=== PATIENT | female | born 1970 | race Caucasian/White ===

== ENCOUNTER 2022-05-25 23:22 | Emergency (ER) | payer OTHER, SELFPAY ==
--- NOTE | ~2022-05-25 | XR_ITS ---
EXAMINATION: XR CHEST CLINICAL INFORMATION: Rule out pneumonia COMPARISON: None TECHNIQUE: Frontal view of the chest was obtained.
[2022-05-25 23:32] VITALS: BP 120/73; BP 126/76; PULSE 81; PULSE 85; RESP 20; TEMP 37.3; O2SAT 94; O2SAT 97; BMI 51.7
--- NOTE | 2022-05-25 23:40 | ED.SOB ---
HPI - SOB/Dyspnea General Chief Complaint: Upper Respiratory Symptoms Stated Complaint: sob Time Seen by Provider: 05/25/22 23:33 Source: patient and EMS Mode of arrival: EMS Limitations: no limitations History of Present Illness HPI Narrative: Patient comes to the emergency room complaining of asthma exacerbation. Patient states that she has been using her inhaler more than usual. Patient denies fever or chills. Patient complaining of coughing. Related Data Previous Rx's Medication Instructions Recorded benzonatate 100 mg capsule 100 mg PO TID PRN cough #14 caps 05/26/22 prednisone 50 mg tablet 50 mg PO DAILY #5 tabs 05/26/22 Allergies Allergy/AdvReac Type Severity Reaction Status Date / Time shellfish derived Allergy Severe ANAPHYLAXIS Unverified 02/16/20 16:37 tree nut [Tree Nut] Allergy Severe ANAPHYLAXIS Unverified 02/16/20 16:37 Sulfa (Sulfonamide Allergy Unknown UNKNOWN Unverified 02/16/20 16:37 Antibiotics) Review of Systems Review of Systems: Constitutional : No Weight loss, No Fever, No Chills, No Night Sweats, No Fatigue, No Malaise ENT/Mouth : No Hearing loss, No Ear Pain, No Nasal Congestion, No Sinus Pain, No Hoarseness, No sore throat, No Rhinorrhea, No Swallowing Difficulty Eyes: No Eye Pain, No Swelling, No Redness, No Foreign Body, No Discharge, No Vision Changes Cardiovascular : No Chest Pain, No SOB, No Dyspnea on Exertion, No Orthopnea, No Edema, No Palpitations Respiratory : [place] cough, wheezing, shortness of breath Gastrointestinal : No Nausea, No Vomiting, No Diarrhea, No Constipation, No abdominal Pain, No Hematochezia, No Melena Genitourinary : no irregular bleeding, No Dysuria, No Urinary Frequency, No Hematuria, No Urinary Incontinence, No Urgency, No Flank Pain, No Urinary Flow Changes, No Hesitancy Musculoskeletal : No joint pain, No Myalgias, No Joint Swelling Skin : No Skin Lesions, No rash Neuro : No Weakness, No Numbness, No Paresthesias, No Loss of Consciousness, No Dizziness, No Headache Psych : No Anxiety/Panic, No Depression, No SI/HI/AH/VH, No Social Issues, Heme/Lymph: No Bruising, No Bleeding,No Lymphadenopathy Endocrine : No Polyuria, No Polydipsia, No Temperature Intolerance PMF Past Medical History Medical History Asthma exacerbation Social History Social History Advance Directives: No Advance Directives Information Provided: Yes Physical Exam Vital Signs: Vital Signs: Last Vital Signs Temp 99.1 F 05/25/22 23:32 Pulse 79 05/26/22 00:02 Resp 18 05/26/22 00:02 BP 120/73 05/25/22 23:32 Pulse Ox 94 05/25/22 23:32 O2 Del Method 05/25/22 23:32 BMI result Body Mass Index 51.7 Const: Other: Appearance: Alert. Oriented X3. No acute distress. Well appearing Eyes: Pupils equal, round and reactive to light. ENT: Pharynx normal. Neck: Normal inspection. Neck supple. No lymph nodes noted. No crepitus CVS: Normal heart rate and rhythm. Pulses normal. Normal S1 and S2 Respiratory: No respiratory distress. Breath sounds normal. No Wheezing. No rales , talking in full sentences Abdomen: Soft and nontender. No rigidity. No distention. Skin: Skin warm and dry. Normal skin color. Normal skin turgor. Extremities: No lower extremity edema. No Lacerations. No Rash Neuro: Oriented X 3. No motor deficit. No sensory deficit. Moving all extremities. No slurred speech. CN 2 through 12 grossly intact Psych: calm, cooperative, normal affect Course Course Course Narrative: Patient's respiratory exam is within normal limits, no wheezing, good air movement, oxygen saturation 96% on room air, talking in full sentences. Patient will be given 1 breathing treatment per patient's request, then we will also provide her with 1 dose of prednisone p.o. COVID and influenza tests pending Patient tested negative for COVID, influenza. Chest x-ray negative. Patient's vitals remained stable Medications Administered Discontinued Medications Generic Name Dose Route Start Last Admin Trade Name Freq PRN Reason Stop Dose Admin Albuterol Sulfate 2.5 mg 05/25/22 23:38 05/26/22 00:00 Albuterol Sulfate (0.083%) 2.5 Mg/3 Ml Vial.Neb INHALE 05/25/22 23:39 2.5 mg ONCE ONE Administration Prednisone 60 mg 05/25/22 23:38 05/25/22 23:49 Prednisone 20 Mg Tablet PO 05/25/22 23:39 60 mg ONCE ONE Administration Medical Decision Making Medical Decision Making MDM Narrative: Patient states she has enough albuterol at home, both palms and for her nebulizer. Patient will be given a prescription for Tessalon Perles and prednisone. Differential Diagnosis Differential Diagnoses: The differential diagnosis associated with the presentation includes (Asthma exacerbation, viral URI, pneumonia) Lab Data MDM Lab Attestation statement: I reviewed the patient's lab results. Labs: Lab Results 05/25/22 05/25/22 Range/Units 23:59 23:59 Influenza Type A (EDWIN) Cancelled Influenza Type A (PCR) NEGATIVE (Negative) Influenza Type B (EDWIN) Cancelled Influenza Type B (PCR) NEGATIVE (Negative) Influenza A & B Note Cancelled RSV RNA Qual (PCR) NEGATIVE (Negative) SARS-CoV-2 RNA (RT-PCR) NEGATIVE (Negative) Radiology Impression Discussion of test interpretation with radiology: I have reviewed the radiologist's reading. Radiologist Impression: FINDINGS: Lungs are mildly hypoinflated and appear clear without focal consolidation. No evidence of pneumothorax, pleural effusion, or pulmonary edema. The cardiomediastinal contour is unremarkable. No acute osseous findings are seen. XR/XR chest 1V IMPRESSION: No acute cardiopulmonary findings. Discharge Plan Discharge Clinical Impression: Asthma exacerbation, Viral URI Patient Disposition: Home, Self-Care Instructions: Asthma (ED) Additional Instructions: Please follow-up with your primary care physician tomorrow. If you have any worsening or new symptoms, please return to the emergency room or call 911 Prescriptions: New prednisone 50 mg tablet 50 mg PO DAILY Qty: 5 0RF benzonatate 100 mg capsule 100 mg PO TID PRN (Reason: cough) Qty: 14 0RF
[2022-05-26 00:02] VITALS: PULSE 79; RESP 18; O2SAT 92
[2022-05-26 00:46] LABS: Influenza A PCR NEGATIVE (Negative); Influenza B PCR NEGATIVE (Negative); Resp Syncy Virus RNA Qual PCR NEGATIVE (Negative); SARS COV2 PCR INHOUSE NEGATIVE (Negative)
[2022-05-26 01:56] VITALS: PULSE 84
[2022-05-26 01:58] VITALS: O2SAT 96
== END 2022-05-26 02:00 | disposition home or self-care (01) ==
PROVIDERS: Emergency Provider Emergency Medicine
DX: J06.9 Acute upper respiratory infection, unspecified (principal); J45.901 Unspecified asthma with (acute) exacerbation; Z20.828 Contact with and (suspected) exposure to other viral communicable diseases
CPT/HCPCS: 0241U; 71045; 94640; 99284; 99285

== ENCOUNTER 2022-06-01 17:24 | Inpatient (IN) | payer OTHER, SELFPAY ==
[2022-06-01] VITALS (7 sets, daily range): BP systolic 110–144; BP diastolic 70–90; PULSE 72–87; RESP 16–24; TEMP 36.8–38.4; O2SAT 90–96; BMI 51.5
--- NOTE | ~2022-06-01 | XR_ITS ---
EXAMINATION: XR CHEST CLINICAL INFORMATION: Shortness of breath and cough COMPARISON: Chest x-ray 05/25/2022 TECHNIQUE: 2 views of the chest were obtained. FINDINGS: Minimal subsegmental atelectasis in the retrocardiac left lung base. No airspace consolidation. No pleural effusion or pneumothorax. Cardiomediastinal silhouette and pulmonary vascularity within normal limits. No acute osseous injury identified. XR/XR chest 2V IMPRESSION: Minimal subsegmental atelectasis in the retrocardiac left lung base. No acute pulmonary process.
--- NOTE | ~2022-06-01 | XR_ITS ---
EXAMINATION: XR CHEST CLINICAL INFORMATION: Follow-up upper respiratory illness. COMPARISON: 06/01/2022 chest radiographs. TECHNIQUE: Frontal view of the chest was obtained. FINDINGS: No significant abnormality is noted involving the heart, lungs, mediastinum, bony thorax or soft tissues. XR/XR chest 1V IMPRESSION: No acute cardiopulmonary process.
--- NOTE | 2022-06-01 17:32 | ECG_ITS ---
Test Reason : SOB Blood Pressure : / mmHG Vent. Rate : 088 BPM Atrial Rate : 088 BPM P-R Int : 134 ms QRS Dur : 078 ms QT Int : 406 ms P-R-T Axes : 038 007 086 degrees QTc Int : 491 ms Normal sinus rhythm Nonspecific ST and T wave abnormality Abnormal ECG No previous ECGs available Referred By: Kelli Garrett Electronically Signed By:AURORA LIMON MD
--- NOTE | 2022-06-01 17:32 | ED.SOB ---
HPI - SOB/Dyspnea General Chief Complaint: Upper Respiratory Symptoms Stated Complaint: SOB/Cough for 1 week Time Seen by Provider: 06/01/22 17:32 Source: patient, EMS and old records reviewed Mode of arrival: EMS Limitations: no limitations History of Present Illness HPI Narrative: 52-year-old female with history of asthma presents to the ER for evaluation of shortness of breath and cough for the last 1 week. Patient was seen here in the emergency department on with coughing and asthma exacerbation. She was discharged home on prednisone and Tessalon Perles. Her viral swab was negative and chest x-ray was clear at that time. Patient states at home she had no improvement with the prednisone. She was seen by her PCP last Thursday and prescribed Hycodan which she was taking every 4 hours as directed through she states like to do not make her feel well, she was dizzy and nauseous. She states she had ongoing coughing fits resulting in shortness of breath and difficulty catching her breath. She also reports diffuse chest pain and diffuse body aches associated with a cough. She states every muscle in her body hurts. She states she has not been able to eat or drink anything today due to nausea. She denies any abdominal pain, vomiting or diarrhea. She states she has not slept in over 24 hours because every time she lays flat she coughs relentlessly. Denies history of heart failure. MD elicited complaint: shortness of breath and cough Pertinent past history: asthma Onset (ago): week(s) (1) Context: recent illness Timing: progressively worsening Severity: severe Exacerbating factors: lying flat, exertion, movement, coughing and inspiration Relieving factors: upright position Known history of: asthma Associated symptoms: chest pain, pain with inspiration, fever, cough, nausea/vomiting, dizziness and lightheadedness Treatment prior to arrival: oxygen Related Data Home oxygen amount: none Home Medications Medication Instructions Recorded Confirmed albuterol sulfate 90 mcg/actuation 2 puff inhalation Q6H PRN wheezing 06/01/22 06/01/22 aerosol inhaler bupropion HCl (smoking deter) 150 1 tab PO BID 06/01/22 06/01/22 mg tablet,12 hr sustained-release(smoking deterrent) cyanocobalamin (vitamin B-12) 1 tab PO DAILY 06/01/22 06/01/22 1,000 mcg tablet levothyroxine 75 mcg tablet 1 tab PO DAILY 06/01/22 06/01/22 lorazepam 0.5 mg tablet 1 tab PO TID PRN anxiety 06/01/22 06/01/22 mometasone-formoterol HFA 200 2 puff inhalation BID 06/01/22 06/01/22 mcg-5 mcg/actuation aerosol inhaler (Dulera) montelukast 10 mg tablet 1 tab PO BEDTIME 06/01/22 06/01/22 omeprazole 20 mg capsule,delayed 20 mg PO BID 06/01/22 06/01/22 release trihexyphenidyl 2 mg tablet 0.5 tab PO BID 06/01/22 06/01/22 verapamil 240 mg tablet,extended 1 tab PO Q12H 06/01/22 06/01/22 release ziprasidone HCl 80 mg capsule 1 cap PO BID 06/01/22 06/01/22 zolpidem 10 mg tablet 1 tab PO BEDTIME PRN insomnia 06/01/22 06/01/22 Allergies Allergy/AdvReac Type Severity Reaction Status Date / Time shellfish derived Allergy Severe ANAPHYLAXIS Unverified 02/16/20 16:37 tree nut [Tree Nut] Allergy Severe ANAPHYLAXIS Unverified 02/16/20 16:37 Sulfa (Sulfonamide Allergy Unknown UNKNOWN Unverified 02/16/20 16:37 Antibiotics) Review of Systems Review of Systems: Yes all other systems are reviewed and are negative PMFSH Past Medical History Medical History Asthma exacerbation Social History Social History Advance Directives: No Advance Directives Information Provided: No Physical Exam Vital Signs: Vital Signs: Last Vital Signs Temp 98.5 F 06/01/22 20:42 Pulse 72 06/01/22 20:42 Resp 16 06/01/22 20:42 BP 116/73 06/01/22 20:42 Pulse Ox 95 06/01/22 20:42 O2 Del Method 06/01/22 20:42 O2 Flow Rate 2 06/01/22 20:42 Oxygen Flow Rate 2 06/01/22 18:16 BMI result Body Mass Index 51.5 Appearance: Alert. Oriented X3. No acute distress. Eyes: Pupils equal, round and reactive to light. ENT: Pharynx normal. Neck: Normal inspection. Neck supple. CVS: Normal heart rate and rhythm. Pulses normal. Respiratory: No respiratory distress. Breath sounds diminished throughout, poor inspiratory effort, no wheezing or rhonchi Abdomen: Obese, Soft and nontender. +BS x4 Skin: Skin warm and dry. Normal skin color. Normal skin turgor. No rashes. Extremities: No lower extremity edema. Neuro: Oriented X 3. No motor deficit. No sensory deficit. Course Course Course Narrative: 17:34 - 52 yo shanthi with history of obesity, migraines, asthma, GERD who presents to the ER for evaluation of increasing shortness of breath and coughing fits for the last 9 days or so. She was seen here on , had negative chest x-ray and viral swab, discharged with prednisone and cough medication. She was also seen by her PCP last Thursday and prescribed Hycodan. No improvement with taking it every 4 hours. She reports dizziness and not feeling well with taking it. She reports ongoing coughing fits and difficulty catching her breath. She states every muscle in her body hurts. On arrival to the ER patient is febrile to 101.2. She is slightly tachypneic 24, SpO2 90% on room air. She is placed on 2 L nasal cannula with improvement in saturations 94%. She is speaking complete sentences and not in any respiratory distress. Will check chest x-ray to rule out pneumonia, repeat viral swab. Lab workup pending. Will start with albuterol treatment, mucolytic, Tylenol, IV fluids and Zofran. Reevaluation(s) Reevaluation #1: Patient found to have influenza. Not in the treatment window for Tamiflu. No leukocytosis. Procalcitonin is low, chest x-ray showing no evidence of pneumonia, there is some minimal subsegmental atelectasis in the retrocardiac left lung base. Will trial off of supplemental O2 and see how she does. Time: 20:01 Reevaluation #2: Patient desaturated to 86% while on room air. Placed back on 2 L nasal cannula. Will plan for admission to the hospital for further management. Patient agrees with plan. Time: 20:42 Medications Administered Discontinued Medications Generic Name Dose Route Start Last Admin Trade Name Freq PRN Reason Stop Dose Admin Acetaminophen 975 mg 06/01/22 17:39 06/01/22 17:53 Acetaminophen 325 Mg Tablet PO 06/01/22 17:40 975 mg ONCE ONE Administration Albuterol Sulfate 2.5 mg/ 5 mg 06/01/22 17:39 06/01/22 18:05 Albuterol Sulfate 2.5 mg INHALE 06/01/22 17:40 5 mg ONCE ONE Administration Guaifenesin 1,200 mg 06/01/22 17:39 06/01/22 17:53 Guaifenesin La 600 Mg Tab.Er.12h PO 06/01/22 17:40 1,200 mg ONCE ONE Administration Sodium Chloride 1,000 mls @ 999 mls/hr 06/01/22 18:00 06/01/22 20:16 Ns IVCONT 06/01/22 19:00 Infused .Q1H1M ZULY Infusion Ondansetron HCl 4 mg 06/01/22 17:39 06/01/22 17:53 Ondansetron Hcl 4 Mg/2 Ml Vial IVPUSH 06/01/22 17:40 4 mg ONCE ONE Administration Medical Decision Making Differential Diagnosis Differential Diagnoses: The differential diagnosis associated with the presentation includes Viral URI, bacterial pneumonia, PE, ACS, pericarditis, myocarditis, costochondritis, pleural effusion Admission/Observation Consideration of admission/observation: Escalation of care including admission/observation considered Admit to the hospital for oxygen requirements Consult Healthcare Provider Management of the patient was discussed with: Hospitalist Lab Data MDM Lab Attestation statement: I reviewed the patient's lab results. Result Diagrams: 06/01/22 17:48 06/01/22 17:48 Labs: Lab Results 06/01/22 06/01/22 06/01/22 Range/Units 17:48 17:48 17:48 WBC 8.8 (4.8-10.8) X10*3/uL RBC 4.38 (4.20-5.50) X10*6/uL Hgb 13.0 (12.0-16.0) g/dl Hct 39.1 (37.0-47.0) % MCV 89.3 (80.0-98.0) fL MCH 29.7 (27.0-33.0) pg MCHC 33.2 (31.0-35.0) g/dl RDW 13.1 (11.0-16.0) % Plt Count 150 L (160-400) X10*3/uL MPV 10.9 (9.4-12.3) fL Immature Gran % (Auto) 0.6 H (0.0-0.4) % Neut % (Auto) 79.6 H (45-73) % Lymph % (Auto) 10.1 L (20-40) % Carlton % (Auto) 9.1 (2-11) % Eos % (Auto) 0.5 (0-4) % Baso % (Auto) 0.1 (0-2) % Lymph # (Auto) 0.9 L (1.2-4.9) X10*3/uL Carlton # (Auto) 0.8 (0.1-1.2) X10*3/uL Eos # (Auto) 0.0 (0.0-0.4) X10*3/uL Baso # (Auto) 0.0 (0.0-0.2) X10*3/uL Abs Immat Gran (auto) 0.05 H (0.00-0.03) X10*3/uL Absolute Neuts (auto) 7.0 (2.0-8.3) x10*3/uL Absolute Nucleated RBC 0.000 (0.0-0.012) X10*3/uL Nucleated RBC % (auto) 0.0 (0.0-0.2) /100WBC Sodium 138 (135-145) mmol/L Potassium 3.5 (3.3-5.1) mmol/L Chloride 104 (96-108) mmol/L Carbon Dioxide 26 (22-29) mmol/L Anion Gap 12 (12-20) BUN 15 (9-16) mg/dL Creatinine 0.86 (0.5-1.4) mg/dL Estim Creat Clear Calc 96.9 Estimated GFR > 60 Random Glucose 96 (60-115) mg/dL Calcium 8.7 (8.4-10.2) mg/dL Magnesium 1.6 (1.6-2.6) mg/dL Total Bilirubin 0.8 (0.0-1.0) mg/dL Direct Bilirubin 0.2 (0.0-0.5) mg/dL AST 11 (5-31) U/L ALT 22 (0-31) U/L Alkaline Phosphatase 70 (39-117) U/L Total Creatine Kinase 31 (26-140) U/L B-Natriuretic Peptide 12 (<100) pg/mL Total Protein 6.0 L (6.5-8.0) g/dL Albumin 3.6 (3.5-5.0) g/dL Procalcitonin ng/mL Influenza Type A (PCR) (Negative) Influenza Type B (PCR) (Negative) RSV RNA Qual (PCR) (Negative) SARS-CoV-2 RNA (RT-PCR) (Negative) 06/01/22 06/01/22 Range/Units 17:48 17:48 WBC (4.8-10.8) X10*3/uL RBC (4.20-5.50) X10*6/uL Hgb (12.0-16.0) g/dl Hct (37.0-47.0) % MCV (80.0-98.0) fL MCH (27.0-33.0) pg MCHC (31.0-35.0) g/dl RDW (11.0-16.0) % Plt Count (160-400) X10*3/uL MPV (9.4-12.3) fL Immature Gran % (Auto) (0.0-0.4) % Neut % (Auto) (45-73) % Lymph % (Auto) (20-40) % Carlton % (Auto) (2-11) % Eos % (Auto) (0-4) % Baso % (Auto) (0-2) % Lymph # (Auto) (1.2-4.9) X10*3/uL Carlton # (Auto) (0.1-1.2) X10*3/uL Eos # (Auto) (0.0-0.4) X10*3/uL Baso # (Auto) (0.0-0.2) X10*3/uL Abs Immat Gran (auto) (0.00-0.03) X10*3/uL Absolute Neuts (auto) (2.0-8.3) x10*3/uL Absolute Nucleated RBC (0.0-0.012) X10*3/uL Nucleated RBC % (auto) (0.0-0.2) /100WBC Sodium (135-145) mmol/L Potassium (3.3-5.1) mmol/L Chloride (96-108) mmol/L Carbon Dioxide (22-29) mmol/L Anion Gap (12-20) BUN (9-16) mg/dL Creatinine (0.5-1.4) mg/dL Estim Creat Clear Calc Estimated GFR Random Glucose (60-115) mg/dL Calcium (8.4-10.2) mg/dL Magnesium (1.6-2.6) mg/dL Total Bilirubin (0.0-1.0) mg/dL Direct Bilirubin (0.0-0.5) mg/dL AST (5-31) U/L ALT (0-31) U/L Alkaline Phosphatase (39-117) U/L Total Creatine Kinase (26-140) U/L B-Natriuretic Peptide (<100) pg/mL Total Protein (6.5-8.0) g/dL Albumin (3.5-5.0) g/dL Procalcitonin 0.07 ng/mL Influenza Type A (PCR) POSITIVE A (Negative) Influenza Type B (PCR) NEGATIVE (Negative) RSV RNA Qual (PCR) NEGATIVE (Negative) SARS-CoV-2 RNA (RT-PCR) NEGATIVE (Negative) Independent Interpretation I performed an independent interpretation of an: EKG and Plain X-Ray Interpretation: EKG with normal sinus rhythm, ventricular rate 88 beats per minute, normal RI interval, prolonged QTC 491 MS, mild artifact present. No ST segment elevations or depressions. Chest x-ray independently reviewed, no focal infiltrate Radiology Impression Discussion of test interpretation with radiology: I have reviewed the radiologist's reading. Radiologist Impression: IMPRESSION: Minimal subsegmental atelectasis in the retrocardiac left lung base. No acute pulmonary process. ? Independent Historian Clinical information obtained from an independent historian. History obtained from or confirmed by: EMS External Record Review External record reviewed: Outpatient record and Prior outpatient labs Prescription Management I considered prescription management with: Antiviral and Antibiotic Does not qualify for Tamiflu given duration of symptoms. No bacterial pneumonia, no antibiotic indicated at this time. Critical Care Time Critical Care Time Critical Care Time: Yes Total Critical Care Time: 35 Attestation: I have personally provided critical care time exclusive of time spent on separately billable procedures. Time includes review of lab data, radiology results, frequent bedside reassessments, discussion with consultants, and monitoring for potential decompensation. Intervention performed as documented. Discharge Plan Discharge Clinical Impression: Influenza, Acute respiratory failure with hypoxia Patient Disposition: Admitted As Inpatient
[2022-06-01] MEDS: guaiFENesin LA 600 MG TAB.ER.12H 1200 MG PO (17:53)
[2022-06-01] MEDS: ondansetron HCL 4 MG/2 ML VIAL IVPUSH (17:53)
[2022-06-01] MEDS: Acetaminophen 325 MG TABLET 975 MG PO (17:53)
[2022-06-01 17:55] LABS: MANUAL DIFF FLAG NO
[2022-06-01] MEDS: Albuterol Sulfate 2.5 MG, Albuterol Sulfate (0.083%) 2.5 MG 5 MG INHALE (18:05)
[2022-06-01 18:17] LABS: B Type Natriuretic Peptide 12 pg/mL (<100)
--- NOTE | 2022-06-01 18:17 | PC.NURSE ---
IV established, labs drawn and sent. Flu/covid/rsv swab obtained. Medicated per the mar, respiratory down for treatment. Pt states granddaughter has been sick at home. Pt seen recently and tested negative for flu/covid/rsv.
[2022-06-01 18:19] LABS: Alanine Aminotransferase 22 U/L (0-31); Albumin Level 3.6 g/dL (3.5-5.0); Alkaline Phosphatase 70 U/L (39-117); Anion Gap 12 (12-20); Aspartate Amino Transferase 11 U/L (5-31); Bilirubin Direct 0.2 mg/dL (0.0-0.5); Bilirubin Total 0.8 mg/dL (0.0-1.0); Blood Urea Nitrogen 15 mg/dL (9-16); Calcium 8.7 mg/dL (8.4-10.2); Carbon Dioxide 26 mmol/L (22-29); Chloride 104 mmol/L (96-108); Creatinine Clr Calc Pharmacy 96.9; Estimated Glomerular Filt Rate > 60; Glucose Random 96 mg/dL (60-115); Magnesium 1.6 mg/dL (1.6-2.6); Potassium 3.5 mmol/L (3.3-5.1); Sodium 138 mmol/L (135-145)
[2022-06-01 18:20] LABS: Basophils Percent Auto 0.1 % (0-2); Eosinophils Percent Auto 0.5 % (0-4); Hematocrit 39.1 % (37.0-47.0); Imm Gran Abs Auto 0.05 X10*3/uL (0.00-0.03); Imm Gran Pct Auto 0.6 % (0.0-0.4); Lymphocytes Absolute Auto 0.9 X10*3/uL (1.2-4.9); Lymphocytes Percent Auto 10.1 % (20-40); Mean Corpuscular HGB Conc 33.2 g/dl (31.0-35.0); Mean Corpuscular Hemoglobin 29.7 pg (27.0-33.0); Mean Corpuscular Volume 89.3 fL (80.0-98.0); Mean Platelet Volume 10.9 fL (9.4-12.3); Monocytes Absolute Auto 0.8 X10*3/uL (0.1-1.2); Monocytes Percent Auto 9.1 % (2-11); Neutrophils Percent Auto 79.6 % (45-73); Platelet Count 150 X10*3/uL (160-400); Red Blood Count 4.38 X10*6/uL (4.20-5.50); Red Cell Distribution Width 13.1 % (11.0-16.0); White Blood Count 8.8 X10*3/uL (4.8-10.8)
[2022-06-01] MEDS: 0.9 % Sodium Chloride 1,000 ML 999 ML IVCONT (18:40)
[2022-06-01 18:47] LABS: Procalcitonin 0.07 ng/mL
[2022-06-01 18:50] LABS: Influenza A PCR POSITIVE (Negative); Influenza B PCR NEGATIVE (Negative); Resp Syncy Virus RNA Qual PCR NEGATIVE (Negative); SARS COV2 PCR INHOUSE NEGATIVE (Negative)
--- NOTE | 2022-06-01 20:41 | MHC.EDTECH ---
pt oxygen dropped to 86 % on room air ,alexa KAT PUT PT BACK ON 2 L O2 .
--- NOTE | 2022-06-01 21:46 | PC.NURSE ---
Assumed care of pt. at 1900. Pt. resting in bed. Pt. reports some swelling on her right foot. Pt. does have a good size bruise on the right ankle. Pt. reports that she bruises easily and isn't sure how that happened or when she got it. Pt. reports pain 10/10 when coughing, however, denies pain at rest.
--- NOTE | 2022-06-01 22:11 | PM.IMHP ---
History of Present Illness Date of Service: 06/01/22 Chief Complaint: Shortness of breath this is a 52-year-old female with past medical history of asthma, hypothyroidism, migraine headaches, acid reflux, presents to the hospital with complaints of shortness of breath, cough, wheezing, for the past 1 week. Patient denies any fever, some chills. Patient reports a cough is so severe that times she has trouble catching her breath. She has nausea no vomiting, no abdominal pain diarrhea or constipation, no urinary symptoms and no lower extremity edema. On arrival to the ED patient noted to be hypoxic with oxygen dipping to the mid 80s, currently on 2 L of oxygen satting 95% Labs are significant for WBC count of 8.8, hemoglobin of 13, hematocrit 39, labs otherwise unremarkable, viral serology positive for influenza A chest x-ray shows minimal subsegmental atelectasis in the retrocardiac left lung, no acute pulmonary process Review of Systems Review of Systems: Yes all other systems are reviewed and are negative [facility] Medical History Acid reflux Asthma exacerbation History of asthma Hypothyroidism Migraine headache Family History Other No family history of coronary artery disease Surgical History History of appendectomy History of cholecystectomy History of eye surgery History of surgery on wrist Social History Advance Directives: No Advance Directives Information Provided: No Meds Allergies Allergy/AdvReac Type Severity Reaction Status Date / Time shellfish derived Allergy Severe ANAPHYLAXIS Unverified 02/16/20 16:37 tree nut [Tree Nut] Allergy Severe ANAPHYLAXIS Unverified 02/16/20 16:37 Sulfa (Sulfonamide Allergy Unknown UNKNOWN Unverified 02/16/20 16:37 Antibiotics) Active Medications: Current Medications Pharmacy Consult (Consult Rx Perform Med Rec) 1 each MISCELLANE ONCE PRN PRN Reason: Consult order Home Medications Medication Instructions Recorded Confirmed Last Taken Type albuterol sulfate 90 mcg/actuation 2 puff inhalation Q6H PRN wheezing 06/01/22 06/01/22 Unknown History aerosol inhaler bupropion HCl (smoking deter) 150 1 tab PO BID 06/01/22 06/01/22 Unknown History mg tablet,12 hr sustained-release(smoking deterrent) cyanocobalamin (vitamin B-12) 1 tab PO DAILY 06/01/22 06/01/22 Unknown History 1,000 mcg tablet levothyroxine 75 mcg tablet 1 tab PO DAILY 06/01/22 06/01/22 Unknown History lorazepam 0.5 mg tablet 1 tab PO TID PRN anxiety 06/01/22 06/01/22 Unknown History mometasone-formoterol HFA 200 2 puff inhalation BID 06/01/22 06/01/22 Unknown History mcg-5 mcg/actuation aerosol inhaler (Dulera) montelukast 10 mg tablet 1 tab PO BEDTIME 06/01/22 06/01/22 Unknown History omeprazole 20 mg capsule,delayed 20 mg PO BID 06/01/22 06/01/22 Unknown History release trihexyphenidyl 2 mg tablet 0.5 tab PO BID 06/01/22 06/01/22 Unknown History verapamil 240 mg tablet,extended 1 tab PO Q12H 06/01/22 06/01/22 Unknown History release ziprasidone HCl 80 mg capsule 1 cap PO BID 06/01/22 06/01/22 Unknown History zolpidem 10 mg tablet 1 tab PO BEDTIME PRN insomnia 06/01/22 06/01/22 Unknown History Physical Exam Vital Signs and Narrative: Vital Signs: Last Vital Signs Temp 98.5 F 06/01/22 20:42 Pulse 72 06/01/22 20:42 Resp 16 06/01/22 20:42 BP 116/73 06/01/22 20:42 Pulse Ox 95 06/01/22 20:42 O2 Del Method 06/01/22 20:42 O2 Flow Rate 2 06/01/22 20:42 Oxygen Flow Rate 2 06/01/22 18:16 BMI result Body Mass Index 51.5 Const: General: cooperative and no acute distress Orientation/consciousness: patient oriented x3 Eyes: General: appearance normal, both eyes and all related structures Pupils: Equal, round and reactive pupils present Resp: Other: expiratory wheezing Effort & Inspection: normal respiratory effort Cardio: Rate: regular rate Rhythm: regular rhythm GI: Palpation (GI): Soft to palpation Auscultation: normal bowel sounds Skin: General skin exam: no rashes or lesions noted Neuro: General: patient oriented x3 Cranial nerves: Yes Equal, round and reactive pupils present Cognition (Neuro): normal cognition Extrem: General: Yes normal to inspection and Yes no pedal edema Results Labs CBC and Chem 7: 06/01/22 17:48 06/01/22 17:48 Labs: Laboratory Results - last 24 hr 06/01/22 06/01/22 06/01/22 17:48 17:48 17:48 MCV 89.3 MCH 29.7 MCHC 33.2 RDW 13.1 Plt Count 150 L MPV 10.9 Immature Gran % (Auto) 0.6 H Neut % (Auto) 79.6 H Lymph % (Auto) 10.1 L [place] % (Auto) 9.1 Eos % (Auto) 0.5 Baso % (Auto) 0.1 Lymph # (Auto) 0.9 L [place] # (Auto) 0.8 Eos # (Auto) 0.0 Baso # (Auto) 0.0 Abs Immat Gran (auto) 0.05 H Absolute Neuts (auto) 7.0 Absolute Nucleated RBC 0.000 Nucleated RBC % (auto) 0.0 Anion Gap 12 Estim Creat Clear Calc 96.9 Estimated GFR > 60 Random Glucose 96 Calcium 8.7 Magnesium 1.6 Total Bilirubin 0.8 Direct Bilirubin 0.2 AST 11 ALT 22 Alkaline Phosphatase 70 Total Creatine Kinase 31 B-Natriuretic Peptide 12 Total Protein 6.0 L Albumin 3.6 Procalcitonin Influenza Type A (PCR) Influenza Type B (PCR) RSV RNA Qual (PCR) SARS-CoV-2 RNA (RT-PCR) 06/01/22 06/01/22 17:48 17:48 MCV MCH MCHC RDW Plt Count MPV Immature Gran % (Auto) Neut % (Auto) Lymph % (Auto) [place] % (Auto) Eos % (Auto) Baso % (Auto) Lymph # (Auto) [place] # (Auto) Eos # (Auto) Baso # (Auto) Abs Immat Gran (auto) Absolute Neuts (auto) Absolute Nucleated RBC Nucleated RBC % (auto) Anion Gap Estim Creat Clear Calc Estimated GFR Random Glucose Calcium Magnesium Total Bilirubin Direct Bilirubin AST ALT Alkaline Phosphatase Total Creatine Kinase B-Natriuretic Peptide Total Protein Albumin Procalcitonin 0.07 Influenza Type A (PCR) POSITIVE A Influenza Type B (PCR) NEGATIVE RSV RNA Qual (PCR) NEGATIVE SARS-CoV-2 RNA (RT-PCR) NEGATIVE Imaging Radiologist's Impressions: Impressions Chest X-Ray 06/01/22 19:20 IMPRESSION: Minimal subsegmental atelectasis in the retrocardiac left lung base. No acute pulmonary process. Assessment and Plan (1) Influenza: Status: Acute (2) Acute respiratory failure with hypoxia: Status: Acute (3) Asthma exacerbation: Status: Acute Plan this is a 52-year-old female with past medical history of asthma presents to the hospital with complaints of shortness of breath found to have influenza # influenza a infection - no evidence of pneumonia - will treat with Tamiflu - follow respiratory status # acute respiratory failure with hypoxia - secondary to asthma as well as influenza a infection - no suggestion of pneumonia, afebrile, no leukocytosis, chest x-ray negative for consolidation - continue oxygen as needed, titrate as tolerated # asthma exacerbation - in the setting of influenza a infection - wheezing, cough, dyspnea - which you Solu-Medrol, Kiana p.r.n. as well as scheduled # GERD - continue omeprazole # hypothyroidism - continue levothyroxine DVT prophylaxis: Lovenox given patient's requirement for oxygen as well as asthma exacerbation patient require minimum 2 nights inpatient hospital stay for further management and monitoring Time Spent With Patient Time: Total time managing care of this patient today ____ minutes. Quality Stroke Does the patient have a stroke diagnosis?: No VTE Prior VTE?: No VTE Risk Level:: Medical - moderate - high VTE Device Contraindication: Treatment Not Indicated VTE Drug Contraindication: N/A - Med Ordered
[2022-06-01] MEDS: Enoxaparin Sodium 40 MG/0.4 ML SYRINGE SUBCUT (22:44)
[2022-06-01] MEDS: methylPREDNISolone Sod Succ 40 MG/ML VIAL IVPUSH (22:44)
--- NOTE | 2022-06-01 22:49 | MHC.EDTECH ---
i offer pt fluids and food ,pt owens a can of kristine paula .
--- NOTE | 2022-06-01 22:54 | PC.NURSE ---
Patient alert and oriented. VS assessed, solumedrol and lovenox administered per MAR. No apparent distress.
[2022-06-02] VITALS (12 sets, daily range): BP systolic 111–135; BP diastolic 57–79; PULSE 52–80; RESP 12–18; TEMP 36.5–37.3; O2SAT 91–98
--- NOTE | 2022-06-02 00:30 | MHC.EDTECH ---
pt was moved into a hospital bed ,pt was incontinent of large amount of urine ,care given ,purewick in place ,pt had a gingerale .
[2022-06-02] MEDS: guaiFENesin DM 100/10/5 ML 5 ML SYRUP PO ×4 (00:51→20:40)
--- NOTE | 2022-06-02 00:52 | PC.NURSE ---
Pt. reporting coughing. Medicated with cough syrup per the MAR. Pt. transferred into a hospital bed for positioning and comfort. Pt. was wearing a brief and states she is incontinent at time. Purwick placed to protect skin from breakdown d/t urine. Pt. now resting comfortably in bed.
--- NOTE | 2022-06-02 02:12 | MHC.EDTECH ---
0200 rounding done vs taken pt awake said she is trying to get some sleep ,but coughing still after rn gave cough syrup ,rn rebecca aware .
--- NOTE | 2022-06-02 03:45 | PC.NURSE ---
Pt. sleeping in bed. Respirations are even and unlabored. No distress noted. Will continue to monitor.
[2022-06-02 04:53] LABS: Appearance Urine Cloudy; Color Urine Yellow; Glucose Urine UA Negative (Negative); Leukocyte Esterase Urine Trace (Negative); Nitrite Urine Negative (Negative); UMIC TRIGGER UACC YES; Urine Blood Negative (Negative); Urine Ketones Trace mg/dL (Negative); Urine Protein 30 (1+) mg/dL (Neg-Trace)
[2022-06-02 04:58] LABS: Bacteria Urine 4+ (None Seen); Hyaline Casts Urine 0-2 /LPF (0-2); RBC Urine 0-2 /HPF (0-2); Squamous Epithelial Cell Urine 0-2 /HPF (0-2); WBC Urine 0-5 /HPF (0-5)
--- NOTE | 2022-06-02 06:09 | PC.NURSE ---
Pt. awake in room. Pt. reports that the cough medicine that was given earlier did help and she was able to sleep and reports not really being able to sleep well prior to the medication. Pt. requesting water and crackers. Pt. feeling a little tight and sounding more congested. Called respiratory for a duoneb treatment as she has them ordered PRN.
[2022-06-02] MEDS: Albuterol/Iprat 2.5/0.5MG 3 ML AMPUL.NEB INHALE ×5 (06:20→19:10)
--- NOTE | 2022-06-02 07:13 | PC.NURSE ---
Report to Overflow RN Vani will prepare to transfer patient.
--- NOTE | 2022-06-02 07:14 | PC.NURSE ---
Patient resting comfortably no respiratory distress noted remains on O2 by nasal cannula with good effect, does not wear at baseline. AOx 4 neuros intact LS clear no stridor noted sounds tight in bases. Will CTM
[2022-06-02 07:15] LABS: Basophils Percent Auto 0.1 % (0-2); Eosinophils Percent Auto 0.1 % (0-4); Hematocrit 38.3 % (37.0-47.0); Hemoglobin 12.5 g/dl (12.0-16.0); Imm Gran Abs Auto 0.09 X10*3/uL (0.00-0.03); Imm Gran Pct Auto 0.7 % (0.0-0.4); Lymphocytes Absolute Auto 0.5 X10*3/uL (1.2-4.9); MANUAL DIFF FLAG SCAN; Mean Corpuscular HGB Conc 32.6 g/dl (31.0-35.0); Mean Corpuscular Hemoglobin 29.2 pg (27.0-33.0); Mean Corpuscular Volume 89.5 fL (80.0-98.0); Mean Platelet Volume 10.4 fL (9.4-12.3); Monocytes Absolute Auto 0.5 X10*3/uL (0.1-1.2); Monocytes Percent Auto 3.5 % (2-11); Neutrophils Absolute Auto 12.1 x10*3/uL (2.0-8.3); Neutrophils Percent Auto 91.6 % (45-73); Platelet Count 136 X10*3/uL (160-400); Red Blood Count 4.28 X10*6/uL (4.20-5.50); Red Cell Distribution Width 13.1 % (11.0-16.0); SCAN SMEAR FLAG 1; White Blood Count 13.2 X10*3/uL (4.8-10.8)
[2022-06-02 07:24] LABS: Anion Gap 14 (12-20); Blood Urea Nitrogen 14 mg/dL (9-16); Calcium 8.5 mg/dL (8.4-10.2); Carbon Dioxide 23 mmol/L (22-29); Chloride 104 mmol/L (96-108); Creatinine Clr Calc Pharmacy 106.8; Estimated Glomerular Filt Rate > 60; Glucose Random 159 mg/dL (60-115); Potassium 4.1 mmol/L (3.3-5.1); Sodium 137 mmol/L (135-145)
[2022-06-02 07:40] LABS: SLIDE REVIEW VERIFIED
--- NOTE | 2022-06-02 07:41 | PHA.MEDREC ---
Pharmacy Consult ? Medication Reconciliation Pharmacy has reviewed the medication reconciliation completed by Jennifer. Veronica Aldana, EvangelinaD
[2022-06-02] MEDS: 0.9 % Sodium Chloride Flush 3 ML SYRINGE IVFLUSH ×2 (08:41→16:22)
--- NOTE | 2022-06-02 08:48 | PC.NURSE ---
pt is a/o x 4 no sob/dragan noted speaks in full sentences. lungs - diminished all lobes. heart sounds - regular. abd obese, soft and non-tender. bs = x 4 QUADS. r foot 1+ non-pitting edema. pt aware of plan of care.
--- NOTE | 2022-06-02 09:00 | MHC.CM.PN ---
Patient is Influenza (+) and not reachable by phone; CM spoke with Daughter/HCP/Lelo @ [phone] and addressed IMM with her (original will be mailed certified letter to Lelo and a copy will be placed on the chart). Patient lives in an apartment with her Mother, Daughter, Granddaughter, and her Daughter's Fiance and she uses a walker to assist with mobility. Patient required no services [employer] and home self care is the goal.CM has initiated and will follow for dc planning. PCP is Dr. Davida Pena and Patient is hyun reynolds
[2022-06-02] MEDS: methylPREDNISolone Sod Succ 40 MG/ML VIAL IVPUSH ×2 (10:40→23:19)
--- NOTE | 2022-06-02 11:37 | HO.PM.IMPN ---
Subjective Subjective Date of Service: 06/02/22 Interval History: Asthma exacerbation,influenza A infection Review of Systems Shortness of breath seems to be somewhat improvi but still talking in short sentences and feels generalized weak Denies any nausea or vomiting Physical Exam Vital Signs: Vital Signs: Last Vital Signs Temp 98.1 F 06/02/22 07:18 Pulse 72 06/02/22 08:09 Resp 18 06/02/22 08:09 BP 123/72 06/02/22 07:18 Pulse Ox 93 06/02/22 07:18 O2 Del Method 06/02/22 07:18 O2 Flow Rate 2 06/02/22 07:18 Oxygen Flow Rate 2 06/01/22 18:16 BMI result Body Mass Index 51.5 Appearance: Alert.? Oriented X3.?sob cvs: rrr, [id number] , no murmur res: air entry diminshed , b/l wheezin abd: no rebound or guarding ,nt, bs present. ext pulses present , no cyanosis. neuro: axo3 , nonfocal. Objective Data Active Medications Acetaminophen (Acetaminophen 325 Mg Tablet) 650 mg PO Q6H PRN PRN Reason: Pain, Mild (Pain Scale 1-3) Albuterol/Ipratropium (Albuterol/Iprat 2.5/0.5mg 3 Ml Ampul.Neb) 3 ml INHALE Q4H PRN PRN Reason: Shortness of Breath/Wheezing Last Admin: 06/02/22 06:20 Dose: 3 ml Documented By: DEIRDRE Albuterol/Ipratropium (Albuterol/Iprat 2.5/0.5mg 3 Ml Ampul.Neb) 3 ml INHALE RQ4H WHILE AWAKE [facility] Last Admin: 06/02/22 08:09 Dose: 3 ml Documented By: ALIX Docusate Sodium (Docusate Sodium 100 Mg Capsule) 100 mg PO DAILY PRN PRN Reason: Constipation Enoxaparin Sodium (Enoxaparin Sodium 40 Mg/0.4 Ml Syringe) 40 mg SUBCUT Q24H [facility] Last Admin: 06/01/22 22:44 Dose: 40 mg Documented By: JOYCE Guaifenesin/Dextromethorphan (Guaifenesin Dm 100/10/5 Ml 5 Ml Syrup) 5 ml PO Q4H PRN PRN Reason: cough Last Admin: 06/02/22 06:06 Dose: 5 ml Documented By: RENEE Methylprednisolone Sodium Succinate (Methylprednisolone Sod Succ 40 Mg/Ml Vial) 40 mg IVPUSH Q12H [facility] Last Admin: 06/02/22 10:40 Dose: 40 mg Documented By: MAHESH Ondansetron HCl (Ondansetron Hcl 4 Mg/2 Ml Vial) 4 mg IVPUSH Q8H PRN PRN Reason: Nausea and Vomiting Pharmacy Consult (Consult Rx Perform Med Rec) 1 each MISCELLANE ONCE PRN PRN Reason: Consult order Sodium Chloride (0.9 % Sodium Chloride Flush 3 Ml Syringe) 3 ml IVFLUSH QSHIFT [facility] Last Admin: 06/02/22 08:41 Dose: 3 ml Documented By: MAHESH Labs CBC & Chem 7: 06/02/22 06:52 06/02/22 06:52 Labs: Laboratory Results - last 24 hr 06/01/22 06/01/22 06/01/22 17:48 17:48 17:48 MCV 89.3 MCH 29.7 MCHC 33.2 RDW 13.1 Plt Count 150 L MPV 10.9 Immature Gran % (Auto) 0.6 H Neut % (Auto) 79.6 H Lymph % (Auto) 10.1 L [place] % (Auto) 9.1 Eos % (Auto) 0.5 Baso % (Auto) 0.1 Lymph # (Auto) 0.9 L [place] # (Auto) 0.8 Eos # (Auto) 0.0 Baso # (Auto) 0.0 Abs Immat Gran (auto) 0.05 H Absolute Neuts (auto) 7.0 Absolute Nucleated RBC 0.000 Nucleated RBC % (auto) 0.0 Smear Tech's Comments Anion Gap 12 Estim Creat Clear Calc 96.9 Estimated GFR > 60 Random Glucose 96 Calcium 8.7 Magnesium 1.6 Total Bilirubin 0.8 Direct Bilirubin 0.2 AST 11 ALT 22 Alkaline Phosphatase 70 Total Creatine Kinase 31 B-Natriuretic Peptide 12 Total Protein 6.0 L Albumin 3.6 Procalcitonin Urine Color Urine Appearance Urine pH Ur Specific [place] Urine Protein Urine Glucose (UA) Urine Ketones Urine Blood Urine Nitrite Ur Leukocyte Esterase Urine RBC Urine WBC Ur Squamous Epith Cells Urine Bacteria Hyaline Casts Influenza Type A (PCR) Influenza Type B (PCR) RSV RNA Qual (PCR) SARS-CoV-2 RNA (RT-PCR) 06/01/22 06/01/22 06/02/22 17:48 17:48 04:48 MCV MCH MCHC RDW Plt Count MPV Immature Gran % (Auto) Neut % (Auto) Lymph % (Auto) [place] % (Auto) Eos % (Auto) Baso % (Auto) Lymph # (Auto) [place] # (Auto) Eos # (Auto) Baso # (Auto) Abs Immat Gran (auto) Absolute Neuts (auto) Absolute Nucleated RBC Nucleated RBC % (auto) Smear Tech's Comments Anion Gap Estim Creat Clear Calc Estimated GFR Random Glucose Calcium Magnesium Total Bilirubin Direct Bilirubin AST ALT Alkaline Phosphatase Total Creatine Kinase B-Natriuretic Peptide Total Protein Albumin Procalcitonin 0.07 Urine Color Yellow Urine Appearance Cloudy Urine pH 6.0 Ur Specific [place] 1.020 Urine Protein 30 (1+) H Urine Glucose (UA) Negative Urine Ketones Trace Urine Blood Negative Urine Nitrite Negative Ur Leukocyte Esterase Trace H Urine RBC 0-2 Urine WBC 0-5 Ur Squamous Epith Cells 0-2 Urine Bacteria 4+ Hyaline Casts 0-2 Influenza Type A (PCR) POSITIVE A Influenza Type B (PCR) NEGATIVE RSV RNA Qual (PCR) NEGATIVE SARS-CoV-2 RNA (RT-PCR) NEGATIVE 06/02/22 06/02/22 06:52 06:52 MCV 89.5 MCH 29.2 MCHC 32.6 RDW 13.1 Plt Count 136 L MPV 10.4 Immature Gran % (Auto) 0.7 H Neut % (Auto) 91.6 H Lymph % (Auto) 4.0 L [place] % (Auto) 3.5 Eos % (Auto) 0.1 Baso % (Auto) 0.1 Lymph # (Auto) 0.5 L [place] # (Auto) 0.5 Eos # (Auto) 0.0 Baso # (Auto) 0.0 Abs Immat Gran (auto) 0.09 H Absolute Neuts (auto) 12.1 H Absolute Nucleated RBC 0.000 Nucleated RBC % (auto) 0.0 Smear Tech's Comments VERIFIED Anion Gap 14 Estim Creat Clear Calc 106.8 Estimated GFR > 60 Random Glucose 159 H Calcium 8.5 Magnesium Total Bilirubin Direct Bilirubin AST ALT Alkaline Phosphatase Total Creatine Kinase B-Natriuretic Peptide Total Protein Albumin Procalcitonin Urine Color Urine Appearance Urine pH Ur Specific [place] Urine Protein Urine Glucose (UA) Urine Ketones Urine Blood Urine Nitrite Ur Leukocyte Esterase Urine RBC Urine WBC Ur Squamous Epith Cells Urine Bacteria Hyaline Casts Influenza Type A (PCR) Influenza Type B (PCR) RSV RNA Qual (PCR) SARS-CoV-2 RNA (RT-PCR) Assessment and Plan (1) Influenza: Status: Acute (2) Acute respiratory failure with hypoxia: Status: Acute (3) Asthma exacerbation: Status: Acute Plan 52-year-old female with past medical history of asthma presents to the hospital with complaints of shortness of breath found to have influenza #? influenza a infection -? no evidence of pneumonia -? will treat with Tamiflu -? follow respiratory status #? acute respiratory failure with hypoxia -? secondary to asthma as well as influenza a infection -? no suggestion of pneumonia, afebrile, no leukocytosis, chest x-ray negative for consolidation - ? continue oxygen as needed, titrate as tolerated #? asthma exacerbation(mild intermittent asthma ) -? in the setting of influenza a infection -? wheezing, cough, dyspnea -? which you Solu-Medrol, DuoNeb p.r.n. as well as scheduled #? GERD -? continue omeprazole # ? hypothyroidism -? continue levothyroxine ?DVT prophylaxis: Lovenox inpatient need -asthma exacerbation(mild intermittent asthma ),acute respiratory failure with hypoxia,influenza a infection-need iv steriods ,nebs ,tamiflu ,oxygen support. Time Spent With Patient Time: Total time managing care of this patient today ____ minutes. Quality Stroke Does the patient have a stroke diagnosis?: No VTE Prior VTE?: No VTE Risk Level:: Medical - moderate - high VTE Device Contraindication: Treatment Not Indicated VTE Drug Contraindication: N/A - Med Ordered
[2022-06-02] MEDS: Levothyroxine Sodium 75 MCG TABLET PO (12:02)
[2022-06-02] MEDS: Oseltamivir Phosphate 75 MG CAPSULE PO ×2 (12:02→23:19)
[2022-06-02] MEDS: Cyanocobalamin (Vitamin B-12) 1,000 MCG TABLET 1000 MCG PO (12:02)
[2022-06-02] MEDS: Omeprazole 20 MG CAPSULE.DR PO ×2 (12:02→20:40)
[2022-06-02] MEDS: Trihexyphenidyl HCL 2 MG TABLET 1 MG PO ×2 (13:01→20:40)
[2022-06-02] MEDS: Ziprasidone 80 MG CAPSULE PO ×2 (13:01→20:40)
[2022-06-02] MEDS: VerapamiL HCL SR 240 MG TABLET.ER PO ×2 (13:01→23:20)
[2022-06-02] MEDS: LORazepam 0.5 MG TABLET PO ×2 (13:02→20:46)
[2022-06-02] MEDS: Acetaminophen 325 MG TABLET 650 MG PO (13:02)
--- NOTE | 2022-06-02 19:01 | PC.NURSE ---
report received from Vani KYLE
[2022-06-02] MEDS: Montelukast Sodium 10 MG TABLET PO (20:40)
[2022-06-02] MEDS: Zolpidem Tartrate 5 MG TABLET 10 MG PO (20:43)
--- NOTE | 2022-06-02 20:56 | PC.NURSE ---
pt resting comfortably on stretcher. no apparent distress, no current complaints. call [facility]
[2022-06-02] MEDS: Enoxaparin Sodium 40 MG/0.4 ML SYRINGE SUBCUT (23:19)
[2022-06-03] VITALS (8 sets, daily range): BP systolic 94–136; BP diastolic 55–65; PULSE 63–83; RESP 16–20; TEMP 36.3–36.8; O2SAT 88–98; BMI 51.5
--- NOTE | 2022-06-03 05:45 | PC.NURSE ---
patient sleeping comfortably on stretcher. respirations even and unlabored, no apparent distress. wearing 2L O2 NC
--- NOTE | 2022-06-03 07:15 | PC.NURSE ---
assumed care of patient, pt resting comfortably in bed, breakfast tray delivered, awaiting inpt bed, VSS
[2022-06-03] MEDS: Albuterol/Iprat 2.5/0.5MG 3 ML AMPUL.NEB INHALE ×4 (07:59→19:42)
[2022-06-03] MEDS: Levothyroxine Sodium 75 MCG TABLET PO (08:20)
[2022-06-03] MEDS: Omeprazole 20 MG CAPSULE.DR PO ×2 (08:20→19:54)
[2022-06-03] MEDS: Trihexyphenidyl HCL 2 MG TABLET 1 MG PO ×2 (08:20→19:54)
[2022-06-03] MEDS: Ziprasidone 80 MG CAPSULE PO ×2 (08:20→19:54)
[2022-06-03] MEDS: Cyanocobalamin (Vitamin B-12) 1,000 MCG TABLET 1000 MCG PO (08:21)
[2022-06-03] MEDS: methylPREDNISolone Sod Succ 40 MG/ML VIAL IVPUSH (10:39)
[2022-06-03] MEDS: Oseltamivir Phosphate 75 MG CAPSULE PO ×2 (10:39→23:26)
[2022-06-03] MEDS: VerapamiL HCL SR 240 MG TABLET.ER PO ×2 (10:39→23:26)
--- NOTE | 2022-06-03 12:18 | P.CDIC_ITS ---
CDI Concurrent Query Documentation Clarification: PHYSICIAN'S DOCUMENTATION REQUEST Date of Query: 06/03/22 1219 Patient Name: Whitley Negron Admit Date: 06/01/22 Dear Doctor, A review of the medical record indicates additional documentation may be needed. Please review below and update the documentation accordingly. Clinical Indicators: Height: [] 5'2 Weight: [] 127.8 kg BMI: [] 51.5 Other Clinical Notes Supporting Significance of the BMI: Risk Factors/Clinical Indicators/Treatments If possible, please provide an associated diagnosis related to the abnormal BMI, such as: For a BMI >= 40: * Overweight * Obesity * Due to excess calories * Drug induced * Due to other cause * Severe or Morbid Obesity * With alveolar hypoventilation * Without alveolar hypoventilation Or: * BMI is not significant * Other (please specify) * Unable to determine Use of terms such as suspected, likely, concern for, or probable (associated with a specific diagnosis that is being evaluated, monitored, or treated as if it exists) are acceptable and can be coded in the inpatient setting, when documented at the time of discharge. Thank you, Ashley Martinez RN Extension: [phone] Please use your independent medical judgment in providing your response. THIS QUERY IS PART OF THE PERMANENT MEDICAL RECORD Provider Response: Morbid Obesity (realted to excess calories)
[2022-06-03] MEDS: methylPREDNISolone Sod Succ 40 MG/ML VIAL 20 MG IVPUSH (13:11)
--- NOTE | 2022-06-03 15:42 | HO.PM.IMPN ---
Subjective Subjective Date of Service: 06/03/22 Interval History: Seen in follow-up for influenza, asthma exacerbation with acute hypoxemic respiratory failure Interval history: Reporting shortness of breath, resting comfortably on 2 L supplemental O2. Still with chest congestion and dry cough Review of Systems Cardiovascular: No chest pain, palpitations, or leg edema Respiratory:+ shortness of breath, +wheezing, +cough GI: No abdominal pain, nausea, vomiting, diarrhea, constipation, melena, hematochezia : No dysuria, hematuria, increased urinary frequency, decreased urinary output MSK: No myalgia, back pain Neuro: No headaches, weakness, paresthesias Skin: No rashes or lesions Physical Exam Vital Signs: Vital Signs: Last Vital Signs Temp 98.0 F 06/03/22 06:48 Pulse 75 06/03/22 15:12 Resp 20 06/03/22 15:12 BP 94/55 L 06/03/22 10:38 Pulse Ox 94 06/03/22 10:38 O2 Del Method 06/03/22 10:38 O2 Flow Rate 1 06/03/22 10:38 Oxygen Flow Rate 2 06/01/22 18:16 BMI result Body Mass Index 51.5 Constitutional - Awake and Alert, No apparent distress Eyes - PERRLA, EOMI Cardiovascular - S1S2, RRR, No edema Respiratory - Normal lung expansion, Normal respiratory effort, No respiratory distress, diminished breath sounds b/l with bll crackles Gastrointestinal - NT / ND; +BS; No rebound or guarding Extremities - no calf tenderness bilaterally, no swelling Skin - Warm/Dry Neurological - Alert & oriented x3 Psychological - Appropriate affect Objective Data Active Medications Acetaminophen (Acetaminophen 325 Mg Tablet) 650 mg PO Q6H PRN PRN Reason: Pain, Mild (Pain Scale 1-3) Last Admin: 06/02/22 13:02 Dose: 650 mg Documented By: MAHESH Albuterol/Ipratropium (Albuterol/Iprat 2.5/0.5mg 3 Ml Ampul.Neb) 3 ml INHALE Q4H PRN PRN Reason: Shortness of Breath/Wheezing Last Admin: 06/02/22 06:20 Dose: 3 ml Documented By: DEIRDRE Albuterol/Ipratropium (Albuterol/Iprat 2.5/0.5mg 3 Ml Ampul.Neb) 3 ml INHALE RQ4H WHILE AWAKE [facility] Last Admin: 06/03/22 15:10 Dose: 3 ml Documented By: LAUREN Bupropion HCl (Bupropion Hcl Xl 300 Mg Tab.Er.24h) 300 mg PO DAILY [facility] Cyanocobalamin (Cyanocobalamin (Vitamin B-12) 1,000 Mcg Tablet) 1,000 mcg PO DAILY [facility] Last Admin: 06/03/22 08:21 Dose: 1,000 mcg Documented By: BARBARA Docusate Sodium (Docusate Sodium 100 Mg Capsule) 100 mg PO DAILY PRN PRN Reason: Constipation Enoxaparin Sodium (Enoxaparin Sodium 40 Mg/0.4 Ml Syringe) 40 mg SUBCUT Q24H [facility] Last Admin: 06/02/22 23:19 Dose: 40 mg Documented By: NNEKA Guaifenesin/Dextromethorphan (Guaifenesin Dm 100/10/5 Ml 5 Ml Syrup) 5 ml PO Q4H PRN PRN Reason: cough Last Admin: 06/02/22 20:40 Dose: 5 ml Documented By: NNEKA Levothyroxine Sodium (Levothyroxine Sodium 75 Mcg Tablet) 75 mcg PO DAILY [facility] Last Admin: 06/03/22 08:20 Dose: 75 mcg Documented By: BARBARA Lorazepam (Lorazepam 0.5 Mg Tablet) 0.5 mg PO TID PRN PRN Reason: anxiety Last Admin: 06/02/22 20:46 Dose: 0.5 mg Documented By: NNEKA Methylprednisolone Sodium Succinate (Methylprednisolone Sod Succ 40 Mg/Ml Vial) 60 mg IVPUSH Q12H [facility] Montelukast Sodium (Montelukast Sodium 10 Mg Tablet) 10 mg PO BEDTIME [facility] Last Admin: 06/02/22 20:40 Dose: 10 mg Documented By: NNEKA Omeprazole (Omeprazole 20 Mg Capsule.Dr) 20 mg PO BID [facility] Last Admin: 06/03/22 08:20 Dose: 20 mg Documented By: BARBARA Ondansetron HCl (Ondansetron Hcl 4 Mg/2 Ml Vial) 4 mg IVPUSH Q8H PRN PRN Reason: Nausea and Vomiting Oseltamivir Phosphate (Oseltamivir Phosphate 75 Mg Capsule) 75 mg PO Q12H [facility] Stop: 06/07/22 00:01 Last Admin: 06/03/22 10:39 Dose: 75 mg Documented By: BARBARA Pharmacy Consult (Consult Rx Perform Med Rec) 1 each MISCELLANE ONCE PRN PRN Reason: Consult order Sodium Chloride (0.9 % Sodium Chloride Flush 3 Ml Syringe) 3 ml IVFLUSH QSHIFT [facility] Last Admin: 06/03/22 15:16 Dose: Not Given Documented By: BARBARA Non-Admin Reason: IV Running Trihexyphenidyl HCl (Trihexyphenidyl Hcl 2 Mg Tablet) 1 mg PO BID [facility] Last Admin: 06/03/22 08:20 Dose: 1 mg Documented By: BARBARA Verapamil HCl (Verapamil Hcl Sr 240 Mg Tablet.Er) 240 mg PO Q12H [facility]; Protocol Last Admin: 06/03/22 10:39 Dose: 240 mg Documented By: BARBARA Ziprasidone (Ziprasidone 80 Mg Capsule) 80 mg PO BID [facility] Last Admin: 06/03/22 08:20 Dose: 80 mg Documented By: BARBARA Zolpidem Tartrate (Zolpidem Tartrate 5 Mg Tablet) 10 mg PO BEDTIME PRN PRN Reason: insomnia Last Admin: 06/02/22 20:43 Dose: 10 mg Documented By: NNEKA Labs CBC & Chem 7: 06/02/22 06:52 06/02/22 06:52 Assessment and Plan (1) Influenza: Status: Acute (2) Acute respiratory failure with hypoxia: Status: Acute (3) Asthma exacerbation: Status: Acute Plan 52-year-old female with past medical history of asthma presents to the hospital with complaints of shortness of breath found to have influenza #? influenza a infection -? no evidence of pneumonia -? continue Tamiflu -? follow respiratory status #? acute respiratory failure with hypoxia -? secondary to asthma as well as influenza a infection -? no suggestion of pneumonia, afebrile, no leukocytosis, chest x-ray negative for consolidation - ? continue oxygen as needed, titrate as tolerated #? asthma exacerbation (mild intermittent asthma) -? in the setting of influenza a infection -? wheezing, cough, dyspnea -? increase Solu-Medrol to 60 mg b.i.d., titrate as able - DuoNebs q.4h #? GERD -? continue omeprazole # ? hypothyroidism -? continue levothyroxine ?DVT prophylaxis: Lovenox inpatient need -asthma exacerbation(mild intermittent asthma ),acute respiratory failure with hypoxia,influenza a infection-need iv steriods ,nebs ,tamiflu ,oxygen support. Time Spent With Patient Time: Total time managing care of this patient today 35 minutes. Quality Stroke Does the patient have a stroke diagnosis?: No VTE Prior VTE?: No VTE Risk Level:: Medical - moderate - high VTE Device Contraindication: Treatment Not Indicated VTE Drug Contraindication: N/A - Med Ordered
[2022-06-03] MEDS: Montelukast Sodium 10 MG TABLET PO (19:54)
[2022-06-03] MEDS: methylPREDNISolone Sod Succ 40 MG/ML VIAL 60 MG IVPUSH (23:26)
[2022-06-03] MEDS: guaiFENesin DM 100/10/5 ML 5 ML SYRUP PO (23:26)
[2022-06-03] MEDS: 0.9 % Sodium Chloride Flush 3 ML SYRINGE IVFLUSH (23:27)
[2022-06-03] MEDS: Enoxaparin Sodium 40 MG/0.4 ML SYRINGE SUBCUT (23:27)
[2022-06-04] VITALS (7 sets, daily range): BP systolic 120–127; BP diastolic 61–76; PULSE 60–619; RESP 16–20; TEMP 35.9–36.8; O2SAT 92–96
[2022-06-04] MEDS: LORazepam 0.5 MG TABLET PO ×2 (04:31→23:43)
[2022-06-04] MEDS: Cyanocobalamin (Vitamin B-12) 1,000 MCG TABLET 1000 MCG PO (09:19)
[2022-06-04] MEDS: buPROPion HCl XL 300 MG TAB.ER.24H PO (09:19)
[2022-06-04] MEDS: Ziprasidone 80 MG CAPSULE PO ×2 (09:19→20:35)
[2022-06-04] MEDS: Levothyroxine Sodium 75 MCG TABLET PO (09:19)
[2022-06-04] MEDS: Omeprazole 20 MG CAPSULE.DR PO ×2 (09:19→20:35)
[2022-06-04] MEDS: Trihexyphenidyl HCL 2 MG TABLET 1 MG PO ×2 (09:19→20:35)
[2022-06-04] MEDS: 0.9 % Sodium Chloride Flush 3 ML SYRINGE IVFLUSH ×2 (09:19→23:43)
[2022-06-04] MEDS: guaiFENesin DM 100/10/5 ML 5 ML SYRUP PO ×2 (09:20→16:47)
[2022-06-04] MEDS: methylPREDNISolone Sod Succ 40 MG/ML VIAL 60 MG IVPUSH ×2 (11:18→23:43)
[2022-06-04] MEDS: Oseltamivir Phosphate 75 MG CAPSULE PO ×2 (11:19→23:43)
[2022-06-04] MEDS: VerapamiL HCL SR 240 MG TABLET.ER PO ×2 (11:19→23:43)
--- NOTE | 2022-06-04 13:32 | HO.PM.IMPN ---
Subjective Subjective Date of Service: 06/04/22 Interval History: seen and examined this morning follow up for asthma/flu A still reporting shortness of breath cough improving Review of Systems Review of Systems: Yes all other systems are reviewed and are negative Constitutional Constitutional: Denies chills and Denies fever(s) Cardiovascular Cardiovascular: Denies chest pain, Denies palpitations and Reports dyspnea Respiratory Respiratory: Reports cough and Reports dyspnea Gastrointestinal Gastrointestinal: Denies abdominal pain, Denies nausea and Denies vomiting Endocrine Endocrine: Denies palpitations Physical Exam Vital Signs: Vital Signs: Last Vital Signs Temp 98.2 F 06/04/22 08:00 Pulse 619 H 06/04/22 12:01 Resp 18 06/04/22 12:01 BP 120/63 06/04/22 08:00 Pulse Ox 96 06/04/22 08:00 O2 Del Method 06/04/22 08:00 O2 Flow Rate 2 06/04/22 08:00 Oxygen Flow Rate 2 06/01/22 18:16 BMI result Body Mass Index 51.5 Const: General: cooperative, comfortable, alert and awake Nutritional Appearance: obese Orientation/consciousness: patient oriented x3 Resp: Effort & Inspection: normal respiratory effort, able to speak in complete sentences and decreased respiratory effort Auscultation: clear to auscultation bilaterally Cardio: Rate: regular rate Heart sounds: S1 normal heart sound present and S2 normal heart sound present GI: Inspection: No distended Palpation (GI): Soft to palpation and nontender Neuro: General: patient oriented x3 and CN's II-XI intact bilaterally Extrem: General: Yes no pedal edema Objective Data Active Medications Acetaminophen (Acetaminophen 325 Mg Tablet) 650 mg PO Q6H PRN PRN Reason: Pain, Mild (Pain Scale 1-3) Last Admin: 06/02/22 13:02 Dose: 650 mg Documented By: SCOC Bupropion HCl (Bupropion Hcl Xl 300 Mg Tab.Er.24h) 300 mg PO DAILY [facility] Last Admin: 06/04/22 09:19 Dose: 300 mg Documented By: COTEMA Albuterol Sulfate 2.5 mg/ (Ipratropium [place] 0.5 mg) 0 mg INHALE RQ4H WHILE AWAKE [facility] Last Admin: 06/04/22 12:00 Dose: 2.5 each Documented By: GUIDIB Cyanocobalamin (Cyanocobalamin (Vitamin B-12) 1,000 Mcg Tablet) 1,000 mcg PO DAILY [facility] Last Admin: 06/04/22 09:19 Dose: 1,000 mcg Documented By: COTEMA Docusate Sodium (Docusate Sodium 100 Mg Capsule) 100 mg PO DAILY PRN PRN Reason: Constipation Enoxaparin Sodium (Enoxaparin Sodium 40 Mg/0.4 Ml Syringe) 40 mg SUBCUT Q24H [facility] Last Admin: 06/03/22 23:27 Dose: 40 mg Documented By: MUNIR Guaifenesin/Dextromethorphan (Guaifenesin Dm 100/10/5 Ml 5 Ml Syrup) 5 ml PO Q4H PRN PRN Reason: cough Last Admin: 06/04/22 09:20 Dose: 5 ml Documented By: COTEMA Levothyroxine Sodium (Levothyroxine Sodium 75 Mcg Tablet) 75 mcg PO DAILY [facility] Last Admin: 06/04/22 09:19 Dose: 75 mcg Documented By: COTEMA Lorazepam (Lorazepam 0.5 Mg Tablet) 0.5 mg PO TID PRN PRN Reason: anxiety Last Admin: 06/04/22 04:31 Dose: 0.5 mg Documented By: MUNIR Methylprednisolone Sodium Succinate (Methylprednisolone Sod Succ 40 Mg/Ml Vial) 60 mg IVPUSH Q12H [facility] Last Admin: 06/04/22 11:18 Dose: 60 mg Documented By: COTEMA Montelukast Sodium (Montelukast Sodium 10 Mg Tablet) 10 mg PO BEDTIME [facility] Last Admin: 06/03/22 19:54 Dose: 10 mg Documented By: MUNIR Omeprazole (Omeprazole 20 Mg Capsule.) 20 mg PO BID [facility] Last Admin: 06/04/22 09:19 Dose: 20 mg Documented By: COTEMA Ondansetron HCl (Ondansetron Hcl 4 Mg/2 Ml Vial) 4 mg IVPUSH Q8H PRN PRN Reason: Nausea and Vomiting Oseltamivir Phosphate (Oseltamivir Phosphate 75 Mg Capsule) 75 mg PO Q12H [facility] Stop: 06/07/22 00:01 Last Admin: 06/04/22 11:19 Dose: 75 mg Documented By: AUTUMNEMA Pharmacy Consult (Consult Rx Perform Med Rec) 1 each MISCELLANE ONCE PRN PRN Reason: Consult order Sodium Chloride (0.9 % Sodium Chloride Flush 3 Ml Syringe) 3 ml IVFLUSH QSHIFT [facility] Last Admin: 06/04/22 09:19 Dose: 3 ml Documented By: JENNYFER Trihexyphenidyl HCl (Trihexyphenidyl Hcl 2 Mg Tablet) 1 mg PO BID [facility] Last Admin: 06/04/22 09:19 Dose: 1 mg Documented By: COTEMA Verapamil HCl (Verapamil Hcl Sr 240 Mg Tablet.Er) 240 mg PO Q12H [facility]; Protocol Last Admin: 06/04/22 11:19 Dose: 240 mg Documented By: JENNYFER Ziprasidone (Ziprasidone 80 Mg Capsule) 80 mg PO BID [facility] Last Admin: 06/04/22 09:19 Dose: 80 mg Documented By: JENNYFER Zolpidem Tartrate (Zolpidem Tartrate 5 Mg Tablet) 10 mg PO BEDTIME PRN PRN Reason: insomnia Last Admin: 06/02/22 20:43 Dose: 10 mg Documented By: SYDNIE-EVER Labs CBC & Chem 7: 06/02/22 06:52 06/02/22 06:52 Assessment and Plan (1) Influenza: Status: Acute (2) Acute respiratory failure with hypoxia: Status: Acute (3) Asthma exacerbation: Status: Acute Plan 52-year-old female with past medical history of asthma presents to the hospital with complaints of shortness of breath found to have influenza acute respiratory failure with hypoxia secondary to asthma as well as influenza a infection no suggestion of pneumonia, afebrile, no leukocytosis, chest x-ray negative for consolidation continue oxygen as needed, titrate as tolerated influenza a continue Tamiflu acute asthma exacerbation (mild intermittent asthma) related to influenza a infection continue Solu-Medrol to 60 mg b.i.d. DuoNebs q.4h GERD -? continue omeprazole hypothyroidism -? continue levothyroxine Mood continue home meds ?DVT prophylaxis: Bro attending - dr. san inpatient need -asthma exacerbation(mild intermittent asthma ),acute respiratory failure with hypoxia,influenza a infection-need iv steriods ,nebs ,tamiflu ,oxygen support. Time Spent With Patient Time: Total time managing care of this patient today ____ minutes. Quality Stroke Does the patient have a stroke diagnosis?: No VTE Prior VTE?: No VTE Risk Level:: Medical - moderate - high VTE Device Contraindication: Treatment Not Indicated VTE Drug Contraindication: N/A - Med Ordered
[2022-06-04] MEDS: Acetaminophen 325 MG TABLET 650 MG PO (16:47)
[2022-06-04] MEDS: Montelukast Sodium 10 MG TABLET PO (20:34)
[2022-06-04] MEDS: Enoxaparin Sodium 40 MG/0.4 ML SYRINGE SUBCUT (23:43)
[2022-06-05] VITALS (9 sets, daily range): BP systolic 112–137; BP diastolic 60–74; PULSE 61–86; RESP 16–18; TEMP 36.2–37.2; O2SAT 90–95
[2022-06-05] MEDS: Zolpidem Tartrate 5 MG TABLET 10 MG PO ×2 (02:57→22:58)
[2022-06-05] MEDS: Cyanocobalamin (Vitamin B-12) 1,000 MCG TABLET 1000 MCG PO (08:53)
[2022-06-05] MEDS: guaiFENesin DM 100/10/5 ML 5 ML SYRUP PO ×2 (08:53→17:46)
[2022-06-05] MEDS: Ziprasidone 80 MG CAPSULE PO ×2 (08:53→20:31)
[2022-06-05] MEDS: Trihexyphenidyl HCL 2 MG TABLET 1 MG PO ×2 (08:53→20:31)
[2022-06-05] MEDS: Levothyroxine Sodium 75 MCG TABLET PO (08:53)
[2022-06-05] MEDS: Omeprazole 20 MG CAPSULE.DR PO ×2 (08:53→20:31)
[2022-06-05] MEDS: buPROPion HCl XL 300 MG TAB.ER.24H PO (08:53)
[2022-06-05] MEDS: 0.9 % Sodium Chloride Flush 3 ML SYRINGE IVFLUSH ×3 (08:53→23:09)
[2022-06-05] MEDS: VerapamiL HCL SR 240 MG TABLET.ER PO ×2 (11:56→23:05)
[2022-06-05] MEDS: methylPREDNISolone Sod Succ 40 MG/ML VIAL 60 MG IVPUSH ×2 (11:57→22:58)
[2022-06-05] MEDS: Oseltamivir Phosphate 75 MG CAPSULE PO ×2 (11:57→23:05)
--- NOTE | 2022-06-05 13:10 | P.PNIM_ITS ---
Subjective Subjective Date of Service: 06/05/22 Interval History: seen and examined this morning follow up for influenza, asthma exacerbation No overnight events Breathing improved this morning, observed sitting up in chair. Has not been ambulating Review of Systems Review of Systems: Yes all other systems are reviewed and are negative Constitutional Constitutional: Denies chills and Denies fever(s) Cardiovascular Cardiovascular: Denies chest pain, Denies palpitations and Denies dyspnea Respiratory Respiratory: Reports cough and Denies dyspnea Gastrointestinal Gastrointestinal: Denies abdominal pain, Denies nausea and Denies vomiting Endocrine Endocrine: Denies palpitations Physical Exam Vital Signs: Vital Signs: Last Vital Signs Temp 97.2 F 06/05/22 07:59 Pulse 66 06/05/22 07:59 Resp 18 06/05/22 07:59 BP 137/72 06/05/22 07:59 Pulse Ox 95 06/05/22 07:59 O2 Del Method 06/05/22 07:59 O2 Flow Rate 2 06/05/22 03:56 Oxygen Flow Rate 2 06/01/22 18:16 BMI result Body Mass Index 51.5 Const: General: cooperative, comfortable, alert and awake Nutritional Appearance: obese Orientation/consciousness: patient oriented x3 Resp: Effort & Inspection: normal respiratory effort, able to speak in complete sentences and decreased respiratory effort Auscultation: clear to auscultation bilaterally Cardio: Rate: regular rate Heart sounds: S1 normal heart sound present and S2 normal heart sound present GI: Inspection: No distended Palpation (GI): Soft to palpation and nontender Neuro: General: patient oriented x3 and CN's II-XI intact bilaterally Extrem: General: Yes no pedal edema Objective Data Active Medications Acetaminophen (Acetaminophen 325 Mg Tablet) 650 mg PO Q6H PRN PRN Reason: Pain, Mild (Pain Scale 1-3) Last Admin: 06/04/22 16:47 Dose: 650 mg Documented By: COTDINO Bupropion HCl (Bupropion Hcl Xl 300 Mg Tab.Er.24h) 300 mg PO DAILY [facility] Last Admin: 06/05/22 08:53 Dose: 300 mg Documented By: JENNYFER Albuterol Sulfate 2.5 mg/ (Ipratropium [place] 0.5 mg) 0 mg INHALE RQ4H WHILE AWAKE [facility] Last Admin: 06/05/22 11:56 Dose: Not Given Documented By: HENRRY Non-Admin Reason: Patient Refused Cyanocobalamin (Cyanocobalamin (Vitamin B-12) 1,000 Mcg Tablet) 1,000 mcg PO DAILY [facility] Last Admin: 06/05/22 08:53 Dose: 1,000 mcg Documented By: COTEMA Docusate Sodium (Docusate Sodium 100 Mg Capsule) 100 mg PO DAILY PRN PRN Reason: Constipation Enoxaparin Sodium (Enoxaparin Sodium 40 Mg/0.4 Ml Syringe) 40 mg SUBCUT Q24H [facility] Last Admin: 06/04/22 23:43 Dose: 40 mg Documented By: MUNIR Guaifenesin/Dextromethorphan (Guaifenesin Dm 100/10/5 Ml 5 Ml Syrup) 5 ml PO Q4H PRN PRN Reason: cough Last Admin: 06/05/22 08:53 Dose: 5 ml Documented By: JENNYFER Levothyroxine Sodium (Levothyroxine Sodium 75 Mcg Tablet) 75 mcg PO DAILY [facility] Last Admin: 06/05/22 08:53 Dose: 75 mcg Documented By: JENNYFER Lorazepam (Lorazepam 0.5 Mg Tablet) 0.5 mg PO TID PRN PRN Reason: anxiety Last Admin: 06/04/22 23:43 Dose: 0.5 mg Documented By: MUNIR Methylprednisolone Sodium Succinate (Methylprednisolone Sod Succ 40 Mg/Ml Vial) 60 mg IVPUSH Q12H [facility] Last Admin: 06/05/22 11:57 Dose: 60 mg Documented By: JENNYFER Montelukast Sodium (Montelukast Sodium 10 Mg Tablet) 10 mg PO BEDTIME [facility] Last Admin: 06/04/22 20:34 Dose: 10 mg Documented By: MUNIR Omeprazole (Omeprazole 20 Mg Capsule.Dr) 20 mg PO BID [facility] Last Admin: 06/05/22 08:53 Dose: 20 mg Documented By: JENNYFER Ondansetron HCl (Ondansetron Hcl 4 Mg/2 Ml Vial) 4 mg IVPUSH Q8H PRN PRN Reason: Nausea and Vomiting Oseltamivir Phosphate (Oseltamivir Phosphate 75 Mg Capsule) 75 mg PO Q12H [facility] Stop: 06/07/22 00:01 Last Admin: 06/05/22 11:57 Dose: 75 mg Documented By: HO.COTEMA Pharmacy Consult (Consult Rx Perform Med Rec) 1 each MISCELLANE ONCE PRN PRN Reason: Consult order Sodium Chloride (0.9 % Sodium Chloride Flush 3 Ml Syringe) 3 ml IVFLUSH QSHIFT [facility] Last Admin: 06/05/22 08:53 Dose: 3 ml Documented By: AUTUMNEMA Trihexyphenidyl HCl (Trihexyphenidyl Hcl 2 Mg Tablet) 1 mg PO BID [facility] Last Admin: 06/05/22 08:53 Dose: 1 mg Documented By: COTEMA Verapamil HCl (Verapamil Hcl Sr 240 Mg Tablet.Er) 240 mg PO Q12H [facility]; Protocol Last Admin: 06/05/22 11:56 Dose: 240 mg Documented By: COTEMA Ziprasidone (Ziprasidone 80 Mg Capsule) 80 mg PO BID [facility] Last Admin: 06/05/22 08:53 Dose: 80 mg Documented By: COTEMA Zolpidem Tartrate (Zolpidem Tartrate 5 Mg Tablet) 10 mg PO BEDTIME PRN PRN Reason: insomnia Last Admin: 06/05/22 02:57 Dose: 10 mg Documented By: KATHIAFA Labs CBC & Chem 7: 06/02/22 06:52 06/02/22 06:52 Assessment and Plan (1) Influenza: Status: Acute (2) Acute respiratory failure with hypoxia: Status: Acute (3) Asthma exacerbation: Status: Acute Plan 52-year-old female with past medical history of asthma presents to the hospital with complaints of shortness of breath found to have influenza acute respiratory failure with hypoxia secondary to asthma as well as influenza a infection no suggestion of pneumonia, afebrile, no leukocytosis, chest x-ray negative for consolidation continue oxygen as needed, titrate as tolerated influenza a continue Tamiflu acute asthma exacerbation (mild intermittent asthma) related to influenza a infection wean steroids DuoNebs q.4h GERD continue omeprazole hypothyroidism continue levothyroxine Mood continue home meds Morbid obesity bmi 51.5 likely contributing to hypoxia JAMI noncompliant with CPAP DVT prophylaxis: Bro attending - dr. san pt evalutaion inpatient need -asthma exacerbation(mild intermittent asthma ),acute respiratory failure with hypoxia,influenza a infection-need iv steriods ,nebs ,tamiflu ,oxyg en support. Time Spent With Patient Time: Total time managing care of this patient today ____ minutes. Quality Stroke Does the patient have a stroke diagnosis?: No VTE Prior VTE?: No VTE Risk Level:: Medical - moderate - high VTE Device Contraindication: Treatment Not Indicated VTE Drug Contraindication: N/A - Med Ordered
[2022-06-05] MEDS: Montelukast Sodium 10 MG TABLET PO (20:31)
[2022-06-05] MEDS: Enoxaparin Sodium 40 MG/0.4 ML SYRINGE SUBCUT (22:59)
[2022-06-06 03:41] VITALS: BP 155/80; PULSE 64; RESP 16; TEMP 36.1; O2SAT 92
[2022-06-06 08:00] VITALS: BP 142/81; PULSE 63; RESP 18; TEMP 36.2; O2SAT 95
[2022-06-06 08:15] VITALS: PULSE 67; RESP 18; O2SAT 93
[2022-06-06] MEDS: buPROPion HCl XL 300 MG TAB.ER.24H PO (09:18)
[2022-06-06] MEDS: predniSONE 20 MG TABLET 40 MG PO (09:18)
[2022-06-06] MEDS: Cyanocobalamin (Vitamin B-12) 1,000 MCG TABLET 1000 MCG PO (09:18)
[2022-06-06] MEDS: Trihexyphenidyl HCL 2 MG TABLET 1 MG PO (09:18)
[2022-06-06] MEDS: Ziprasidone 80 MG CAPSULE PO (09:18)
[2022-06-06] MEDS: guaiFENesin DM 100/10/5 ML 5 ML SYRUP PO (09:18)
[2022-06-06] MEDS: Levothyroxine Sodium 75 MCG TABLET PO (09:19)
[2022-06-06] MEDS: Omeprazole 20 MG CAPSULE.DR PO (09:19)
[2022-06-06] MEDS: 0.9 % Sodium Chloride Flush 3 ML SYRINGE IVFLUSH (09:19)
[2022-06-06] MEDS: Acetaminophen 325 MG TABLET 650 MG PO (09:26)
--- NOTE | 2022-06-06 10:21 | PM.DS ---
DS: Providers Provider Date of Service: 06/06/22 Date of admission: 06/01/22 22:10 Date of discharge: 06/06/22 Primary care physician: Davida Pena MD Attending physician on discharge: Juno Serrano Discharging clinician: Concha Arreaga DS: Diagnosis Discharge Diagnosis (1) Influenza: Status: Acute (2) Acute respiratory failure with hypoxia: Status: Acute (3) Asthma exacerbation: Status: Acute DS: Summary Hospital Course Hospital Course: From H&P on day of admission this is a 52-year-old female with past medical history of asthma, hypothyroidism, migraine headaches, acid reflux, presents to the hospital with complaints of shortness of breath, cough, wheezing, for the past 1 week.? Patient denies any fever, some chills.? Patient reports a cough is so severe that times she has trouble catching her breath.? She has nausea no vomiting, no abdominal pain diarrhea or constipation, no urinary symptoms and no lower extremity edema.? On arrival to the ED patient noted to be hypoxic with oxygen dipping to the mid 80s, currently on 2 L of oxygen satting 95% Labs are significant for WBC count of 8.8, hemoglobin of 13, hematocrit 39, labs otherwise unremarkable, viral serology positive for influenza A chest x-ray shows minimal subsegmental atelectasis in the retrocardiac left lung, no acute pulmonary process acute respiratory failure with hypoxia secondary to acute asthma exacerbation and influenza a infection. no suggestion of pneumonia, afebrile, no leukocytosis, chest x-ray negative for consolidation. Patient was able to be weaned off oxygen and has been saturating Well on room air. She was treated with systemic steroids, Tamiflu, breathing treatments and supportive care with cough medication. Overall her breathing and her cough have improved significantly. She was educated on likelihood of having persistent cough for some time. She was seen by Physical therapy who recommended home with physical therapy which she is in agreement with. She has a history of obstructive sleep apnea which was likely contributing to overall hypoxia as well. Time Spent with Patient Time attestation: Total time managing care of this patient today ____ minutes. Discharge coordination time: Greater than 30 minutes Quality: Safe Use of Opioids Does Pt have an Active Cancer Diagnosis on the Problem List?: No Quality: Stroke Does the patient have a stroke diagnosis?: No Physical Exam Vital Signs: Vital Signs: Last Vital Signs Temp 97.2 F 06/06/22 08:00 Pulse 67 06/06/22 08:15 Resp 18 06/06/22 08:15 BP 142/81 H 06/06/22 08:00 Pulse Ox 95 06/06/22 08:00 O2 Del Method 06/06/22 08:00 O2 Flow Rate 2 06/05/22 03:56 Oxygen Flow Rate 2 06/01/22 18:16 BMI result Body Mass Index 51.5 Const: General: cooperative, comfortable, alert and awake Nutritional Appearance: obese Orientation/consciousness: patient oriented x3 Resp: Effort & Inspection: normal respiratory effort, able to speak in complete sentences and decreased respiratory effort Cardio: Rate: regular rate Heart sounds: S1 normal heart sound present and S2 normal heart sound present GI: Inspection: No distended Palpation (GI): Soft to palpation and nontender Neuro: General: patient oriented x3 and CN's II-XI intact bilaterally Extrem: General: Yes no pedal edema Discharge Plan Discharge Anticipated Discharge Date/Time: 06/06/22 10:26 Patient Disposition: Home Health Service Discharge Diagnosis: acute asthma exacerbation influenza a acute respiratory failure with hypoxia Referrals: Davida Pena MD [Primary Care Provider] - 1 Week Discharge Medications: New oseltamivir [Tamiflu] 75 mg Capsule 75 mg PO Q12H Qty: 2 0RF dextromethorphan-guaifenesin 10-100 mg/5 mL Syrup 5 ml PO Q4H PRN (Reason: cough) Qty: 237 0RF prednisone 20 mg tablet 40 mg PO DAILY 5 Days Qty: 10 0RF albuterol sulfate 1.25 mg/3 mL solution for nebulization 1.25 mg inhalation Q4-6H PRN (Reason: shortness of breath or wheezing) Qty: 75 0RF Continued ziprasidone HCl 80 mg capsule 1 cap PO BID cyanocobalamin (vitamin B-12) 1,000 mcg tablet 1 tab PO DAILY levothyroxine 75 mcg tablet 1 tab PO DAILY lorazepam 0.5 mg tablet 1 tab PO TID PRN (Reason: anxiety) omeprazole 20 mg capsule,delayed release(DR/EC) 20 mg PO BID verapamil 240 mg tablet extended release 1 tab PO Q12H montelukast 10 mg tablet 1 tab PO BEDTIME zolpidem 10 mg tablet 1 tab PO BEDTIME PRN (Reason: insomnia) albuterol sulfate 90 mcg/actuation HFA aerosol inhaler 2 puff INHALATION Q6H PRN (Reason: wheezing) trihexyphenidyl 2 mg tablet 0.5 tab PO BID Dulera 200-5 mcg/actuation HFA aerosol inhaler 2 puff INHALATION BID bupropion HCl (smoking deter) 150 mg tablet extended release 12 hr 1 tab PO BID Discharge Orders: Discharge Order (Routine); Ordered 06/06/22 Ordered By: Concha Arreaga Activity on Discharge: As tolerated Stand Alone Forms: Patient Portal Discharge page Care Plan Goals: resolution of respiratory symptoms Health Concerns: Acute asthma exacerbation influenza a low oxygen levels JAMI Plan of Treatment: complete course of steroids and Tamiflu as prescribed cough may persist for several weeks, can use cough syrup as needed would recommend use of CPAP machine for sleep apnea as tolerated call to schedule follow-up appointment with PCP Assessment: see discharge summary Patient Instructions: Influenza (DC) Discharge Date/Time: 06/06/22 13:20
[2022-06-06] MEDS: Oseltamivir Phosphate 75 MG CAPSULE PO (11:35)
[2022-06-06] MEDS: VerapamiL HCL SR 240 MG TABLET.ER PO (11:35)
--- NOTE | 2022-06-06 12:34 | P.F2F_ITS ---
Service Date Service Date: 06/06/22 Encounter Date of encounter: 06/06/22 Reasons for Services Signs and symptoms assessed: needs Physical therapy transfer, gait training, therapeutic exercises Reason for physical therapy: home safety and mobility, therapeutic exercises and gait/transfer training MD Overseeing Care: Davida Pena Homebound: Leaving the home is medically contraindicated at this time without the asist of a device and/or another person due th the listed conditions above and below. Reason homebound: unsteady gait / fall risk Certification: Based on the above findings, I certify that this patient is confined to the home and needs intermittent correction care, physical therapy and/or speech therapy, or continues to need occupational therapy. The patient is under my care, and I have initiated the establishment of the plan of care. The patient will be followed by a physician who will periodically review the plan of care. Time Spent With Patient Time: Total time managing care of this patient today ____ minutes.
--- NOTE | 2022-06-06 14:13 | MHC.CM.PN ---
PT WILL DC HOME TODAY AND NEEDS PT SERVICES NILSA SPOKE WITH NIALL AT [facility], SHE HAS CONFIRMED THEY WILL PROVIDE PTS THERAPY PT ARRANGED TRANSPORT
== END 2022-06-06 13:20 | disposition home health service (06) | DRG 193 ==
LOC: HO.ED 20:43 → HO.EDOVER 22:15 → HO.S3 06-03 14:54
PROVIDERS: Physician Assistant; Admitting Provider Internal Medicine; Emergency Provider Internal Medicine; PCP Internal Medicine; Visit Provider Physician Assistant Medical
DX: J10.1 Influenza due to other identified influenza virus with other respiratory manifestations (principal); J96.01 Acute respiratory failure with hypoxia; J45.21 Mild intermittent asthma with (acute) exacerbation; Z68.43 Body mass index [BMI] 50.0-59.9, adult; G47.33 Obstructive sleep apnea (adult) (pediatric); E66.01 Morbid (severe) obesity due to excess calories; K21.9 Gastro-esophageal reflux disease without esophagitis; E03.9 Hypothyroidism, unspecified; F39 Unspecified mood [affective] disorder; G43.909 Migraine, unspecified, not intractable, without status migrainosus; Z20.822 Contact with and (suspected) exposure to COVID-19; Z91.199 Patient's noncompliance with other medical treatment and regimen due to unspecified reason; Z88.2 Allergy status to sulfonamides; Z79.899 Other long term (current) drug therapy
CPT/HCPCS: 0241U; 36415; 71045; 71046; 80048; 80076; 81001; 82550; 83735; 83880; 84145; 85025; 93005; 94640; 97161; 99285; J1650; J2405; J2920

== ENCOUNTER 2022-07-02 21:16 | Inpatient (IN) | payer OTHER, SELFPAY ==
--- NOTE | ~2022-07-02 | XR_ITS ---
EXAMINATION: XR CHEST CLINICAL INFORMATION: Shortness of breath. COMPARISON: Chest radiograph 06/06/2022. TECHNIQUE: Frontal view of the chest was obtained. FINDINGS: Multifocal patchy airspace opacities in the left lung. No pleural effusion or pneumothorax. Normal appearance of the cardiomediastinal silhouette. No acute osseous abnormalities. The visualized upper abdomen is within normal limits. XR/XR chest 1V IMPRESSION: Multifocal patchy airspace opacities in the left lung concerning for an atypical infectious or inflammatory process.
[2022-07-02 21:25] VITALS: BP 129/70; PULSE 88; RESP 17; TEMP 37.8; O2SAT 93
[2022-07-02 21:33] VITALS: BP 126/80; PULSE 88; O2SAT 92; BMI 50.8
[2022-07-02 22:08] LABS: COVID-19 Test Negative (Negative); IDNOW Serial# 08D9AD1C
[2022-07-02 22:36] VITALS: O2SAT 89
[2022-07-02 22:40] LABS: Alanine Aminotransferase 14 U/L (0-31); Albumin Level 3.5 g/dL (3.5-5.0); Alkaline Phosphatase 62 U/L (39-117); Anion Gap 17 (12-20); Aspartate Amino Transferase 19 U/L (5-31); Bilirubin Total 0.4 mg/dL (0.0-1.0); Blood Urea Nitrogen 15 mg/dL (9-16); Calcium 8.5 mg/dL (8.4-10.2); Carbon Dioxide 20 mmol/L (22-29); Chloride 108 mmol/L (96-108); Creatinine Clr Calc Pharmacy 87.9; Estimated Glomerular Filt Rate > 60; Glucose Random 100 mg/dL (60-115); Potassium 4.6 mmol/L (3.3-5.1); Sodium 140 mmol/L (135-145); Total Protein 6.4 g/dL (6.5-8.0)
--- NOTE | 2022-07-02 22:47 | PM.IMHP ---
History of Present Illness Date of Service: 07/02/22 Chief Complaint: Dyspnea This is a 52-year-old female with pertinent history of asthma, hypothyroidism, mood disorder, gastroesophageal reflux disease who presents to the emergency department for evaluation of shortness of breath. Patient states she has been having dyspnea, worse with exertion that started about 2 days ago. It is associated with cough. Endorses fever and chills. Has associated wheezing. Patient used her home inhaler without relief. She denies chest discomfort, palpitations, abdominal pain, changes in urinary or bowel habits. The emergency department, imaging with left-sided consolidation. Patient was found to be hypoxic with ambulation. Review of Systems Constitutional: Constitutional: Reports chills, Reports fatigue, Reports fever(s), Reports lethargy and Reports malaise Cardiovascular: Cardiovascular: Reports dyspnea on exertion Respiratory: Respiratory: Reports cough, Reports dyspnea on exertion and Reports wheezing Gastrointestinal: Gastrointestinal: Reports no additional gastrointestinal complaints Endocrine: Endocrine: Reports fatigue Allergic/Immunologic: Allergic/Immunologic: Reports wheezing [facility] Medical History Acid reflux Asthma exacerbation History of asthma Hypothyroidism Migraine headache Family History Other No family history of coronary artery disease Surgical History History of appendectomy History of cholecystectomy History of eye surgery History of surgery on wrist Social History Household Members: Family Household Members Other:: 4 Housing: Apartment Do you presently have visiting nurse or other home services: No Patient Tobacco Use Status: Never used Tobacco e-Cigarette/Vaping Use: Never Used Advance Directives: No Advance Directives Information Provided: No service: No Current occupational status: disabled Meds Allergies Allergy/AdvReac Type Severity Reaction Status Date / Time shellfish derived Allergy Severe ANAPHYLAXIS Verified 06/03/22 19:53 tree nut [Tree Nut] Allergy Severe ANAPHYLAXIS Verified 06/03/22 19:53 Sulfa (Sulfonamide Allergy Unknown UNKNOWN Verified 06/03/22 19:53 Antibiotics) Active Medications: Current Medications Enoxaparin Sodium (Enoxaparin Sodium 40 Mg/0.4 Ml Syringe) 40 mg SUBCUT Q24H ZULY Magnesium Sulfate (Magnesium Sulfate/H2o) 2 gm in 50 mls @ 25 mls/hr IV ONCE ONE Stop: 07/03/22 00:33 Azithromycin 500 mg/ Sodium (Chloride) 250 mls @ 125 mls/hr IV ONCE ONE Stop: 07/03/22 00:33 Sodium Chloride (0.9 % Sodium Chloride Flush 3 Ml Syringe) 3 ml IVFLUSH QSHIFT [facility] Home Medications Medication Instructions Recorded Confirmed Last Taken Type albuterol sulfate 90 mcg/actuation 2 puff inhalation Q6H PRN wheezing 06/01/22 06/01/22 Unknown History aerosol inhaler bupropion HCl (smoking deter) 150 1 tab PO BID 06/01/22 06/01/22 Unknown History mg tablet,12 hr sustained-release(smoking deterrent) cyanocobalamin (vitamin B-12) 1 tab PO DAILY 06/01/22 06/01/22 Unknown History 1,000 mcg tablet levothyroxine 75 mcg tablet 1 tab PO DAILY 06/01/22 06/01/22 Unknown History lorazepam 0.5 mg tablet 1 tab PO TID PRN anxiety 06/01/22 06/01/22 Unknown History mometasone-formoterol HFA 200 2 puff inhalation BID 06/01/22 06/01/22 Unknown History mcg-5 mcg/actuation aerosol inhaler (Dulera) montelukast 10 mg tablet 1 tab PO BEDTIME 06/01/22 06/01/22 Unknown History omeprazole 20 mg capsule,delayed 20 mg PO BID 06/01/22 06/01/22 Unknown History release trihexyphenidyl 2 mg tablet 0.5 tab PO BID 06/01/22 06/01/22 Unknown History verapamil 240 mg tablet,extended 1 tab PO Q12H 06/01/22 06/01/22 Unknown History release ziprasidone HCl 80 mg capsule 1 cap PO BID 06/01/22 06/01/22 Unknown History zolpidem 10 mg tablet 1 tab PO BEDTIME PRN insomnia 06/01/22 06/01/22 Unknown History Physical Exam Vital Signs and Narrative: Vital Signs: Last Vital Signs Temp 100.1 F 07/02/22 21:25 Pulse 88 07/02/22 21:25 Resp 17 02/01/23 21:25 BP 129/70 07/02/22 21:25 Pulse Ox 89 L 07/02/22 22:36 O2 Del Method 07/02/22 22:36 BMI result Body Mass Index 50.8 Middle-aged female lying in bed in mild distress Neck supple, no JVD Regular rate and rhythm, S1-S2 heard Left-sided crackles with bilateral wheezing Abdomen soft nontender, no guarding, no rigidity Patient is awake, alert and oriented to self, place, time and person ; no focal motor deficit Psych: Normal mood No pedal edema Results Labs 07/02/22 22:17 Labs: Laboratory Results - last 24 hr 07/02/22 07/02/22 21:41 22:17 Anion Gap 17 Estim Creat Clear Calc 87.9 Estimated GFR > 60 Random Glucose 100 Calcium 8.5 Total Bilirubin 0.4 AST 19 ALT 14 Alkaline Phosphatase 62 Total Protein 6.4 L Albumin 3.5 COVID-19 (STEPHEN) Negative COVID-19 Clin Com See Note Imaging Radiologist's Impressions: Impressions Chest X-Ray 07/02/22 21:58 IMPRESSION: Multifocal patchy airspace opacities in the left lung concerning for an atypical infectious or inflammatory process. Assessment and Plan (1) Acute respiratory failure with hypoxia: Status: Acute (2) Asthma exacerbation: Status: Acute Plan This is a 52-year-old female with pertinent history of asthma, hypothyroidism, mood disorder, gastroesophageal reflux disease who presents to the emergency department for evaluation of shortness of breath. #. Acute ambulatory hypoxemia due to: #. Left-sided pneumonia leading to acute asthma exacerbation -will admit patient and initiate empiric IV antibiotics. Continue systemic steroids and home inhalers. Initiate scheduled in p.davon Kelly. #. Hypothyroidism: On Synthroid #. Gastroesophageal reflux disease: On PPI Med rec pending DVT prophylaxis: Lovenox 40 mg daily Full code Regular diet Admit as inpatient and will require two night minimum hospital stay for supplemental oxygen and IV antibiotics Time Spent With Patient Time: Total time managing care of this patient today ____ minutes. Quality Stroke Does the patient have a stroke diagnosis?: No VTE Prior VTE?: No VTE Risk Level:: Medical - moderate - high VTE Device Contraindication: Treatment Not Indicated VTE Drug Contraindication: N/A - Med Ordered
--- NOTE | 2022-07-02 22:47 | ED.GENADULT ---
HPI - General Adult General Chief complaint: Fever Stated complaint: difficulty breathing Time Seen by Provider: 07/02/22 21:29 Source: patient Mode of arrival: ambulatory Limitations: no limitations History of Present Illness HPI narrative: This is a 52-year-old female history of hypothyroidism, asthma, migraine headaches, reflux, recent diagnosis of influenza on 06/01/2022 presenting to the emergency department with chest pressure, shortness of breath, dry cough times 3 days. Patient reports substernal chest pressure without radiation, she tells me that this is constant in nature. Also reporting shortness of breath that is worse with exertion better at rest. Patient tells me that when she ambulates she has to stop to catch her breath, she tells me this does not happen to her usually. Patient tells me that she does not use oxygen at home. She reports she was recently hospitalized for influenza here at this hospital. Patient also reports fevers and chills at home T-max a 103.2 degrees F. Denies headache, vision changes, nausea, vomiting, abdominal pain, weakness. Related Data Home Medications Medication Instructions Recorded Confirmed albuterol sulfate 90 mcg/actuation 2 puff inhalation Q6H PRN wheezing 06/01/22 06/01/22 aerosol inhaler bupropion HCl (smoking deter) 150 1 tab PO BID 06/01/22 06/01/22 mg tablet,12 hr sustained-release(smoking deterrent) cyanocobalamin (vitamin B-12) 1 tab PO DAILY 06/01/22 06/01/22 1,000 mcg tablet levothyroxine 75 mcg tablet 1 tab PO DAILY 06/01/22 06/01/22 lorazepam 0.5 mg tablet 1 tab PO TID PRN anxiety 06/01/22 06/01/22 mometasone-formoterol HFA 200 2 puff inhalation BID 06/01/22 06/01/22 mcg-5 mcg/actuation aerosol inhaler (Dulera) montelukast 10 mg tablet 1 tab PO BEDTIME 06/01/22 06/01/22 omeprazole 20 mg capsule,delayed 20 mg PO BID 06/01/22 06/01/22 release trihexyphenidyl 2 mg tablet 0.5 tab PO BID 06/01/22 06/01/22 verapamil 240 mg tablet,extended 1 tab PO Q12H 06/01/22 06/01/22 release ziprasidone HCl 80 mg capsule 1 cap PO BID 06/01/22 06/01/22 zolpidem 10 mg tablet 1 tab PO BEDTIME PRN insomnia 06/01/22 06/01/22 Previous Rx's Medication Instructions Recorded albuterol sulfate 1.25 mg/3 mL 1.25 mg (3 mL) inhalation Q4-6H 06/06/22 solution for nebulization PRN shortness of breath or wheezing #75 mL dextromethorphan-guaifenesin 10 5 ml PO Q4H PRN cough #237 mL 06/06/22 mg-100 mg/5 mL oral syrup oseltamivir 75 mg capsule (Tamiflu) 75 mg PO Q12H #2 caps 06/06/22 prednisone 20 mg tablet 40 mg PO DAILY 5 days #10 tabs 06/06/22 Allergies Allergy/AdvReac Type Severity Reaction Status Date / Time shellfish derived Allergy Severe ANAPHYLAXIS Verified 06/03/22 19:53 tree nut [Tree Nut] Allergy Severe ANAPHYLAXIS Verified 06/03/22 19:53 Sulfa (Sulfonamide Allergy Unknown UNKNOWN Verified 06/03/22 19:53 Antibiotics) Review of Systems Review of Systems: Constitutional : No Weight loss, + Fever, + Chills, + Fatigue, + Malaise ENT/Mouth : No sore throat, No Rhinorrhea Eyes: No Eye Pain, No Swelling, No Redness Cardiovascular : + Chest Pain, + SOB, + Dyspnea on Exertion, No Orthopnea, No Edema, No Palpitations Respiratory : + Cough, No Sputum, No Wheezing Gastrointestinal : No Nausea, No Vomiting, No Diarrhea, No Constipation, No abdominal Pain, No Hematochezia, No Melena Genitourinary : No Dysuria, No Urinary Frequency, No Hematuria, Musculoskeletal : No joint pain, No Myalgias, No Joint Swelling Skin : No Skin Lesions, No rash Neuro : No Weakness, No Numbness, No Dizziness, No Headache Psych : No Anxiety/Panic, No Depression All other systems reviewed and are negative Yes all other systems are reviewed and are negative [facility] Past Medical History Attestation statement: The following information was validated with the patient. Source: old records reviewed and nursing notes reviewed Medical History Acid reflux Asthma exacerbation History of asthma Hypothyroidism Migraine headache Surgical History History of appendectomy History of cholecystectomy History of eye surgery History of surgery on wrist Family History Family History Other No family history of coronary artery disease Social History Social History Household Members: Family Household Members Other:: 4 Housing: Apartment Do you presently have visiting nurse or other home services: No Patient Tobacco Use Status: Never used Tobacco e-Cigarette/Vaping Use: Never Used Advance Directives: No Advance Directives Information Provided: No service: No Current occupational status: disabled Physical Exam ED Vital Signs: Vital Signs - 24 hr 07/02/22 21:25 07/02/22 22:36 07/02/22 23:45 Temperature 100.1 F Pulse Rate 88 92 Respiratory Rate 17 Blood Pressure 129/70 Pulse Oximetry 93 89 L Oxygen Delivery Method Room Air Room Air BMI result Body Mass Index 50.8 low grade temp and O2 of 9% Appearance: Alert.? Oriented X3.? No acute distress.? Head: Normocephalic, atraumatic, no step-offs or deformities Eyes: Pupils equal, round and reactive to light.? Neck: Normal inspection.? Neck supple.? CVS: Normal heart rate and rhythm.? Pulses normal.? Respiratory: No respiratory distress.? Breath sounds diminished b/l faint expiratory wheezing b/l.? Abdomen: Soft and nontender.? Skin: Skin warm and dry.? Normal skin color.? Normal skin turgor.? Extremities: No lower extremity edema.? No calf ttp. 5/5 strength to bilateral upper and lower extremities Neuro: Oriented X 3.? No motor deficit.? No sensory deficit. CN 2-12 intact Course Reevaluation(s) Reevaluation #1: Patient is saturating 89% with ambulation. With labored breathing. Time: 23:01 Reevaluation #2: CBC with leukopenia, chemistry with no acute electrolyte abnormalities requiring intervention. Troponin, lactic acid, EKG pending. Time: 23:30 Reevaluation #3: Troponin negative, EKG nonischemic. Lactic acid negative. Patient requiring supplemental oxygen. At this time patient will be admitted to the hospitalist team for viral pneumonia, hypoxia. Time: 00:53 Medications Administered Generic Name Dose Route Start Last Admin Trade Name Freq PRN Reason Stop Dose Admin Acetaminophen 650 mg 07/02/22 22:44 07/03/22 00:49 Acetaminophen 325 Mg Tablet PO 650 mg Q6H PRN Administration Pain, Mild (Pain Scale 1-3) Enoxaparin Sodium 40 mg 07/02/22 23:00 07/02/22 23:21 Enoxaparin Sodium 40 Mg/0.4 Ml Syringe SUBCUT 40 mg Q24H ZULY Administration Ceftriaxone Sodium 1 gm/ 50 mls @ 100 mls/hr 07/02/22 23:45 07/03/22 00:18 Sodium Chloride IV 100 mls/hr Q24H ZULY Administration Melatonin 6 mg 07/02/22 22:44 07/03/22 00:50 Melatonin 3 Mg Tablet PO 6 mg BEDTIME PRN Administration Insomnia Discontinued Medications Generic Name Dose Route Start Last Admin Trade Name Freq PRN Reason Stop Dose Admin Albuterol Sulfate 10 mg 07/02/22 22:34 07/02/22 23:39 Albuterol Sulfate (0.083%) 2.5 Mg/3 Ml Vial.Neb INHALE 07/02/22 22:35 10 mg ONCE ONE Administration Magnesium Sulfate 2 gm in 50 mls @ 25 mls/hr 07/02/22 22:34 07/02/22 23:43 Magnesium Sulfate/H2o IV 07/03/22 00:33 25 mls/hr ONCE ONE Administration Methylprednisolone Sodium Succinate 125 mg 07/02/22 22:34 07/02/22 23:21 Methylprednisolone Sod Succ 125 Mg/2 Ml Vial IVPUSH 07/02/22 22:35 125 mg ONCE ONE Administration Medical Decision Making Medical Decision Making [facility] Narrative: 2231 52-year-old female presents with shortness of breath, chest discomfort, dry cough and fevers and chills x3 days Physical exam diminished breath sounds bilaterally with faint wheezing. Concerns for possible asthma versus viral infection versus pneumonia. Unlikely PE, ACS. Plan labs, imaging, imaging. Will obtain ambulatory O2 Differential Diagnosis Differential Diagnoses: The differential diagnosis associated with the presentation includes Concerns for possible asthma versus viral infection versus pneumonia. Unlikely PE, ACS. Admission/Observation Consideration of admission/observation: Escalation of care including admission/observation considered Consult Healthcare Provider Management of the patient was discussed with: Hospitalist (Will admit patient) Lab Data MDM Lab Attestation statement: I reviewed the patient's lab results. 07/02/22 22:17 Labs: Lab Results 07/02/22 07/02/22 07/02/22 Range/Units 21:41 22:17 22:17 WBC (4.8-10.8) X10*3/uL RBC (4.20-5.50) X10*6/uL Hgb (12.0-16.0) g/dl Hct (37.0-47.0) % MCV (80.0-98.0) fL MCH (27.0-33.0) pg MCHC (31.0-35.0) g/dl RDW (11.0-16.0) % Plt Count (160-400) X10*3/uL MPV (9.4-12.3) fL Immature Gran % (Auto) (0.0-0.4) % Neut % (Auto) (45-73) % Lymph % (Auto) (20-40) % [place] % (Auto) (2-11) % Eos % (Auto) (0-4) % Baso % (Auto) (0-2) % Lymph # (Auto) (1.2-4.9) X10*3/uL [place] # (Auto) (0.1-1.2) X10*3/uL Eos # (Auto) (0.0-0.4) X10*3/uL Baso # (Auto) (0.0-0.2) X10*3/uL Abs Immat Gran (auto) (0.00-0.03) X10*3/uL Absolute Neuts (auto) (2.0-8.3) x10*3/uL Absolute Nucleated RBC (0.0-0.012) X10*3/uL Nucleated RBC % (auto) (0.0-0.2) /100WBC D-Dimer High Sensitivty NG/ML Sodium 140 (135-145) mmol/L Potassium 4.6 (3.3-5.1) mmol/L Chloride 108 (96-108) mmol/L Carbon Dioxide 20 L (22-29) mmol/L Anion Gap 17 (12-20) BUN 15 (9-16) mg/dL Creatinine 0.94 (0.5-1.4) mg/dL Estim Creat Clear Calc 87.9 Estimated GFR > 60 Random Glucose 100 (60-115) mg/dL Lactic Acid (0.5-2.0) mmol/L Calcium 8.5 (8.4-10.2) mg/dL Total Bilirubin 0.4 (0.0-1.0) mg/dL AST 19 (5-31) U/L ALT 14 (0-31) U/L Alkaline Phosphatase 62 (39-117) U/L Troponin I High Sens (<3.5-17.0) ng/L B-Natriuretic Peptide < 10 (<100) pg/mL Total Protein 6.4 L (6.5-8.0) g/dL Albumin 3.5 (3.5-5.0) g/dL COVID-19 (STEPHEN) Negative (Negative) COVID-19 Clin Com See Note 07/02/22 07/02/22 07/02/22 Range/Units 23:00 23:00 23:00 WBC 4.3 L (4.8-10.8) X10*3/uL RBC 4.05 L (4.20-5.50) X10*6/uL Hgb 12.1 (12.0-16.0) g/dl Hct 37.3 (37.0-47.0) % MCV 92.1 (80.0-98.0) fL MCH 29.9 (27.0-33.0) pg MCHC 32.4 (31.0-35.0) g/dl RDW 14.3 (11.0-16.0) % Plt Count 202 D (160-400) X10*3/uL MPV 10.2 (9.4-12.3) fL Immature Gran % (Auto) 0.2 (0.0-0.4) % Neut % (Auto) 68.7 (45-73) % Lymph % (Auto) 18.8 L (20-40) % [place] % (Auto) 11.4 H (2-11) % Eos % (Auto) 0.7 (0-4) % Baso % (Auto) 0.2 (0-2) % Lymph # (Auto) 0.8 L (1.2-4.9) X10*3/uL [place] # (Auto) 0.5 (0.1-1.2) X10*3/uL Eos # (Auto) 0.0 (0.0-0.4) X10*3/uL Baso # (Auto) 0.0 (0.0-0.2) X10*3/uL Abs Immat Gran (auto) 0.01 (0.00-0.03) X10*3/uL Absolute Neuts (auto) 3.0 (2.0-8.3) x10*3/uL Absolute Nucleated RBC 0.000 (0.0-0.012) X10*3/uL Nucleated RBC % (auto) 0.0 (0.0-0.2) /100WBC D-Dimer High Sensitivty 191 NG/ML Sodium (135-145) mmol/L Potassium (3.3-5.1) mmol/L Chloride (96-108) mmol/L Carbon Dioxide (22-29) mmol/L Anion Gap (12-20) BUN (9-16) mg/dL Creatinine (0.5-1.4) mg/dL Estim Creat Clear Calc Estimated GFR Random Glucose (60-115) mg/dL Lactic Acid 0.8 (0.5-2.0) mmol/L Calcium (8.4-10.2) mg/dL Total Bilirubin (0.0-1.0) mg/dL AST (5-31) U/L ALT (0-31) U/L Alkaline Phosphatase (39-117) U/L Troponin I High Sens (<3.5-17.0) ng/L B-Natriuretic Peptide (<100) pg/mL Total Protein (6.5-8.0) g/dL Albumin (3.5-5.0) g/dL COVID-19 (STEPHEN) (Negative) COVID-19 Clin Com 07/02/22 Range/Units 23:00 WBC (4.8-10.8) X10*3/uL RBC (4.20-5.50) X10*6/uL Hgb (12.0-16.0) g/dl Hct (37.0-47.0) % MCV (80.0-98.0) fL MCH (27.0-33.0) pg MCHC (31.0-35.0) g/dl RDW (11.0-16.0) % Plt Count (160-400) X10*3/uL MPV (9.4-12.3) fL Immature Gran % (Auto) (0.0-0.4) % Neut % (Auto) (45-73) % Lymph % (Auto) (20-40) % [place] % (Auto) (2-11) % Eos % (Auto) (0-4) % Baso % (Auto) (0-2) % Lymph # (Auto) (1.2-4.9) X10*3/uL [place] # (Auto) (0.1-1.2) X10*3/uL Eos # (Auto) (0.0-0.4) X10*3/uL Baso # (Auto) (0.0-0.2) X10*3/uL Abs Immat Gran (auto) (0.00-0.03) X10*3/uL Absolute Neuts (auto) (2.0-8.3) x10*3/uL Absolute Nucleated RBC (0.0-0.012) X10*3/uL Nucleated RBC % (auto) (0.0-0.2) /100WBC D-Dimer High Sensitivty NG/ML Sodium (135-145) mmol/L Potassium (3.3-5.1) mmol/L Chloride (96-108) mmol/L Carbon Dioxide (22-29) mmol/L Anion Gap (12-20) BUN (9-16) mg/dL Creatinine (0.5-1.4) mg/dL Estim Creat Clear Calc Estimated GFR Random Glucose (60-115) mg/dL Lactic Acid (0.5-2.0) mmol/L Calcium (8.4-10.2) mg/dL Total Bilirubin (0.0-1.0) mg/dL AST (5-31) U/L ALT (0-31) U/L Alkaline Phosphatase (39-117) U/L Troponin I High Sens < 3.5 (<3.5-17.0) ng/L B-Natriuretic Peptide (<100) pg/mL Total Protein (6.5-8.0) g/dL Albumin (3.5-5.0) g/dL COVID-19 (STEPHEN) (Negative) COVID-19 Clin Com Independent Interpretation I performed an independent interpretation of an: EKG (Ventricular rate of 93, OR normal, QRS normal, QT/QTC normal. EKG with normal sinus rhythm no ST elevations or inversions concerning for ischemia.) and Plain X-Ray (viral pna ) Radiology Impression Discussion of test interpretation with radiology: I have reviewed the radiologist's reading. Core Measures AMI core measures followed: Yes Measure exclusions: not indicated Critical Care Time Critical Care Time Critical Care Time: No Discharge Plan Discharge Clinical Impression: Pneumonia, viral, Hypoxia Patient Disposition: Admitted As Inpatient Prescriptions: No Action ziprasidone HCl 80 mg capsule 1 cap PO BID cyanocobalamin (vitamin B-12) 1,000 mcg tablet 1 tab PO DAILY levothyroxine 75 mcg tablet 1 tab PO DAILY lorazepam 0.5 mg tablet 1 tab PO TID PRN (Reason: anxiety) omeprazole 20 mg capsule,delayed release(DR/EC) 20 mg PO BID verapamil 240 mg tablet extended release 1 tab PO Q12H montelukast 10 mg tablet 1 tab PO BEDTIME zolpidem 10 mg tablet 1 tab PO BEDTIME PRN (Reason: insomnia) albuterol sulfate 90 mcg/actuation HFA aerosol inhaler 2 puff INHALATION Q6H PRN (Reason: wheezing) trihexyphenidyl 2 mg tablet 0.5 tab PO BID Dulera 200-5 mcg/actuation HFA aerosol inhaler 2 puff INHALATION BID bupropion HCl (smoking deter) 150 mg tablet extended release 12 hr 1 tab PO BID oseltamivir [Tamiflu] 75 mg Capsule 75 mg PO Q12H Qty: 2 0RF dextromethorphan-guaifenesin 10-100 mg/5 mL Syrup 5 ml PO Q4H PRN (Reason: cough) Qty: 237 0RF prednisone 20 mg tablet 40 mg PO DAILY 5 Days Qty: 10 0RF albuterol sulfate 1.25 mg/3 mL solution for nebulization 1.25 mg inhalation Q4-6H PRN (Reason: shortness of breath or wheezing) Qty: 75 0RF
[2022-07-02 22:53] LABS: B Type Natriuretic Peptide < 10 pg/mL (<100)
--- NOTE | 2022-07-02 23:00 | ECG_ITS ---
Test Reason : DYSPNEA Blood Pressure : / mmHG Vent. Rate : 093 BPM Atrial Rate : 093 BPM P-R Int : 160 ms QRS Dur : 078 ms QT Int : 294 ms P-R-T Axes : 025 010 141 degrees QTc Int : 365 ms Normal sinus rhythm Nonspecific T wave abnormality Abnormal ECG When compared with ECG of 01-JUN-2022 18:36, QT has shortened Referred By: Sugar Bosch Electronically Signed By:Joshua Perez
[2022-07-02 23:17] LABS: D Dimer High Sensitivity 191 NG/ML
[2022-07-02 23:21] LABS: MANUAL DIFF FLAG NO
[2022-07-02] MEDS: methylPREDNISolone Sod Succ 125 MG/2 ML VIAL IVPUSH (23:21)
[2022-07-02] MEDS: Enoxaparin Sodium 40 MG/0.4 ML SYRINGE SUBCUT (23:21)
[2022-07-02 23:22] LABS: Basophils Percent Auto 0.2 % (0-2); Eosinophils Percent Auto 0.7 % (0-4); Hematocrit 37.3 % (37.0-47.0); Hemoglobin 12.1 g/dl (12.0-16.0); Imm Gran Abs Auto 0.01 X10*3/uL (0.00-0.03); Imm Gran Pct Auto 0.2 % (0.0-0.4); Lymphocytes Absolute Auto 0.8 X10*3/uL (1.2-4.9); Lymphocytes Percent Auto 18.8 % (20-40); Mean Corpuscular HGB Conc 32.4 g/dl (31.0-35.0); Mean Corpuscular Hemoglobin 29.9 pg (27.0-33.0); Mean Corpuscular Volume 92.1 fL (80.0-98.0); Mean Platelet Volume 10.2 fL (9.4-12.3); Monocytes Absolute Auto 0.5 X10*3/uL (0.1-1.2); Monocytes Percent Auto 11.4 % (2-11); Neutrophils Percent Auto 68.7 % (45-73); Platelet Count 202 X10*3/uL (160-400); Red Blood Count 4.05 X10*6/uL (4.20-5.50); Red Cell Distribution Width 14.3 % (11.0-16.0); White Blood Count 4.3 X10*3/uL (4.8-10.8)
[2022-07-02 23:32] LABS: Lactic Acid 0.8 mmol/L (0.5-2.0)
[2022-07-02] MEDS: Albuterol Sulfate (0.083%) 2.5 MG/3 ML VIAL.NEB 10 MG INHALE (23:39)
[2022-07-02] MEDS: Magnesium Sulfate/H2O 2 GM/50 ML PIGGYBACK IV (23:43)
[2022-07-02 23:44] LABS: Troponin-I High Sensitivity < 3.5 ng/L (<3.5-17.0)
[2022-07-02 23:45] VITALS: PULSE 92; O2SAT 94
[2022-07-03] VITALS (10 sets, daily range): BP systolic 104–134; BP diastolic 69–78; PULSE 76–87; RESP 14–20; TEMP 36.1–37.2; O2SAT 90–94
[2022-07-03] MEDS: cefTRIAXone sodium 1 GM in 0.9 % Sodium Chloride 50 ML IV (00:18)
--- NOTE | 2022-07-03 00:35 | PC.NURSE ---
pt assessed, lying still on strechter, spo2 86-88, denies being sob, placed on 2 liters of o2 via nasal cannula
[2022-07-03] MEDS: Acetaminophen 325 MG TABLET 650 MG PO ×2 (00:49→13:43)
[2022-07-03] MEDS: Melatonin 3 MG TABLET 6 MG PO (00:50)
[2022-07-03] MEDS: Azithromycin 500 MG in 0.9 % Sodium Chloride 250 ML 125 MG IV ×2 (01:49→21:11)
--- NOTE | 2022-07-03 03:34 | PC.NURSE ---
Pt. brought over from the main ED. Pt. reports wearing briefs as she is incontinent. Pt. brought her own briefs. Changed into a clean brief and helped into bed. Pt. has IV abx azithromycin running with about 1 1/2 hours remaining. IV was flushed and restarted. Pt. reports a slight headache at 3/10 which is improved from previous headache with the help of tylenol. Pt. resting quietly in room. Will continue to monitor.
[2022-07-03 07:05] LABS: MANUAL DIFF FLAG NO
[2022-07-03 07:06] LABS: Basophils Percent Auto 0.3 % (0-2); Hematocrit 36.3 % (37.0-47.0); Hemoglobin 11.9 g/dl (12.0-16.0); Imm Gran Abs Auto 0.02 X10*3/uL (0.00-0.03); Imm Gran Pct Auto 0.5 % (0.0-0.4); Lymphocytes Absolute Auto 0.3 X10*3/uL (1.2-4.9); Lymphocytes Percent Auto 8.8 % (20-40); Mean Corpuscular HGB Conc 32.8 g/dl (31.0-35.0); Mean Corpuscular Hemoglobin 29.9 pg (27.0-33.0); Mean Corpuscular Volume 91.2 fL (80.0-98.0); Mean Platelet Volume 10.2 fL (9.4-12.3); Monocytes Absolute Auto 0.1 X10*3/uL (0.1-1.2); Monocytes Percent Auto 2.6 % (2-11); Neutrophils Absolute Auto 3.4 x10*3/uL (2.0-8.3); Neutrophils Percent Auto 87.8 % (45-73); Platelet Count 206 X10*3/uL (160-400); Red Blood Count 3.98 X10*6/uL (4.20-5.50); Red Cell Distribution Width 14.1 % (11.0-16.0); White Blood Count 3.9 X10*3/uL (4.8-10.8)
[2022-07-03 07:29] LABS: Anion Gap 12 (12-20); Blood Urea Nitrogen 14 mg/dL (9-16); Calcium 8.4 mg/dL (8.4-10.2); Carbon Dioxide 22 mmol/L (22-29); Chloride 108 mmol/L (96-108); Creatinine Clr Calc Pharmacy 97.2; Estimated Glomerular Filt Rate > 60; Glucose Random 168 mg/dL (60-115); Potassium 4.2 mmol/L (3.3-5.1); Sodium 138 mmol/L (135-145)
[2022-07-03] MEDS: Albuterol/Iprat 2.5/0.5MG 3 ML AMPUL.NEB INHALE ×4 (07:55→19:04)
--- NOTE | 2022-07-03 08:04 | PC.NURSE ---
assumed care of patient, pt resting comfortably in bed, VSS
--- NOTE | 2022-07-03 09:14 | PHA.MEDREC ---
Pharmacy Consult ? Medication Reconciliation Pharmacy has completed the medication reconciliation. Pt with list on phone
[2022-07-03] MEDS: methylPREDNISolone Sod Succ 40 MG/ML VIAL IVPUSH (10:55)
--- NOTE | 2022-07-03 11:00 | PHA.PROG ---
Admission Date/Time: July 02, 2022 22:45 Indication: Resp Infection Weight in k.099 kg Adjusted body weight in K.49 kg [place] body weight in K.1 kg Obesity Dosing Indication % IBW: 250% Serum Creatinine - Last 168 Hours 07/02/22 07/03/22 22:17 06:52 Creatinine 0.94 0.85 Estimated CrCl and GFR - Last 168 Hours 07/02/22 07/03/22 22:17 06:52 Estim Creat Clear Calc 87.9 97.2 Estimated GFR > 60 > 60 Vancomycin Loading Dose: 2000 mg Current Vancomycin Dosing Regimen: 1000 mg Q12H Date and Time for next Vancomycin Level to be drawn: 07/04 @ 2100 Pharmacist Comments on Vancomycin Plan: patient is morbidly obese with %IBW > 130%, therefore carefully monitor is required due to vanco's high volume of distribution Patient received loading dose vancomycin 2000 mg on 07/03 @ 1055 Maintenance dose vanco 1000 mg Q12H is schedule to start 07/03 @ 2300. Expected AUC 526 with a trough of 15.5. Level to be drawn piror to 4th dose Pharmacy will monitor renal function daily. Veronica Aldana PharmD Vancomycin dosing will take advantage of [employer] as a clinical decision support tool that uses Bayesian modeling to calculate individual patient's pharmacokinetic parameters and forecast the patient's drug concentration time course with the target goal AUC 24 range of 400 - 600 mg/L/hr.
--- NOTE | 2022-07-03 11:22 | P.PNIM_ITS ---
Subjective Subjective Date of Service: 07/03/22 Interval History: sob Physical Exam Vital Signs: Vital Signs: Last Vital Signs Temp 98.1 F 07/03/22 06:10 Pulse 76 07/03/22 07:57 Resp 18 07/03/22 07:57 BP 104/73 07/03/22 06:10 Pulse Ox 92 07/03/22 06:10 O2 Del Method 07/03/22 06:10 O2 Flow Rate 5 07/03/22 06:10 BMI result Body Mass Index 50.8 General: AO X 3, no acute distress Resp: left cracklse, wheezes bilateral, no accessory muscles used CVS: S1,S2,RRR GI: soft, non tender, non distended Neuro: motor grossly intact, alert Psych: appropriate affect, appropriate insight Objective Data Active Medications Acetaminophen (Acetaminophen 325 Mg Tablet) 650 mg PO Q6H PRN PRN Reason: Pain, Mild (Pain Scale 1-3) Last Admin: 07/03/22 00:49 Dose: 650 mg Documented By: TUYET Albuterol/Ipratropium (Albuterol/Iprat 2.5/0.5mg 3 Ml Ampul.Neb) 3 ml INHALE RQ4H WHILE AWAKE [facility] Last Admin: 07/03/22 07:55 Dose: 3 ml Documented By: HENRRY Albuterol/Ipratropium (Albuterol/Iprat 2.5/0.5mg 3 Ml Ampul.Neb) 3 ml INHALE Q6H PRN PRN Reason: Wheezing Cyanocobalamin (Cyanocobalamin (Vitamin B-12) 1,000 Mcg Tablet) 1,000 mcg PO DAILY [facility] Diphenhydramine HCl (Diphenhydramine Hcl 25 Mg Capsule) 25 mg PO BEDTIME [facility] Enoxaparin Sodium (Enoxaparin Sodium 40 Mg/0.4 Ml Syringe) 40 mg SUBCUT Q24H [facility] Last Admin: 07/02/22 23:21 Dose: 40 mg Documented By: TUYET Ceftriaxone Sodium 1 gm/ (Sodium Chloride) 50 mls @ 100 mls/hr IV Q24H [facility] Last Infusion: 07/03/22 00:56 Dose: 0 mls/hr Documented By: TUYET Azithromycin 500 mg/ Sodium (Chloride) 250 mls @ 125 mls/hr IV Q24H [facility] Vancomycin HCl 1,000 mg/ (Sodium Chloride) 270 mls @ 270 mls/hr IV Q12H [facility] Vancomycin HCl (Vancomycin/Ns) 2,000 mg in 520 mls @ 260 mls/hr IV ONCE ONE Stop: 07/03/22 12:44 Last Admin: 07/03/22 10:55 Dose: 260 mls/hr Documented By: BARBARA Levothyroxine Sodium (Levothyroxine Sodium 75 Mcg Tablet) 75 mcg PO DAILY@0600 [facility] Loratadine (Loratadine 10 Mg Tablet) 10 mg PO BEDTIME ZULY Lorazepam (Lorazepam 0.5 Mg Tablet) 0.5 mg PO DAILY PRN PRN Reason: Anxiety Lorazepam (Lorazepam 1 Mg Tablet) 1 mg PO BEDTIME ZULY Melatonin (Melatonin 3 Mg Tablet) 6 mg PO BEDTIME PRN PRN Reason: Insomnia Last Admin: 07/03/22 00:50 Dose: 6 mg Documented By: TUYET Methylprednisolone Sodium Succinate (Methylprednisolone Sod Succ 40 Mg/Ml Vial) 40 mg IVPUSH Q12H [facility] Last Admin: 07/03/22 10:55 Dose: 40 mg Documented By: BARBARA Montelukast Sodium (Montelukast Sodium 10 Mg Tablet) 10 mg PO BEDTIME [facility] Non-Formulary Medication (Bupropion Hcl (Smoking Deter)) 1 tab PO BID [facility] Omeprazole (Omeprazole 20 Mg Capsule.Dr) 20 mg PO BID@0630,1630 [facility] Ondansetron HCl (Ondansetron Hcl 4 Mg/2 Ml Vial) 4 mg IVPUSH Q8H PRN PRN Reason: Nausea and Vomiting Pharmacy Consult (Consult Rx Perform Med Rec) 1 each MISCELLANE ONCE PRN PRN Reason: Consult order Pharmacy Consult (Consult Rx Vancomycin Dosing) 1 each MISCELLANE DAILY PRN PRN Reason: Consult order Sodium Chloride (0.9 % Sodium Chloride Flush 3 Ml Syringe) 3 ml IVFLUSH QSHIFT [facility] Last Admin: 07/03/22 07:20 Dose: Not Given Documented By: BARBARA Non-Admin Reason: IV Running Verapamil HCl (Verapamil Hcl Sr 240 Mg Tablet.Er) 240 mg PO BID [facility]; Protocol Ziprasidone (Ziprasidone 80 Mg Capsule) 80 mg PO BID [facility] Zolpidem Tartrate (Zolpidem Tartrate 5 Mg Tablet) 5 mg PO BEDTIME PRN PRN Reason: insomnia Labs 07/03/22 06:52 07/03/22 06:52 Labs: Laboratory Results - last 24 hr 07/02/22 07/02/22 07/02/22 21:41 22:17 22:17 MCV MCH MCHC RDW Plt Count MPV Immature Gran % (Auto) Neut % (Auto) Lymph % (Auto) [place] % (Auto) Eos % (Auto) Baso % (Auto) Lymph # (Auto) [place] # (Auto) Eos # (Auto) Baso # (Auto) Abs Immat Gran (auto) Absolute Neuts (auto) Absolute Nucleated RBC Nucleated RBC % (auto) D-Dimer High Sensitivty Anion Gap 17 Estim Creat Clear Calc 87.9 Estimated GFR > 60 Random Glucose 100 Lactic Acid Calcium 8.5 Total Bilirubin 0.4 AST 19 ALT 14 Alkaline Phosphatase 62 Troponin I High Sens B-Natriuretic Peptide < 10 Total Protein 6.4 L Albumin 3.5 COVID-19 (STEPHEN) Negative COVID-19 Clin Com See Note 07/02/22 07/02/22 07/02/22 23:00 23:00 23:00 MCV 92.1 MCH 29.9 MCHC 32.4 RDW 14.3 Plt Count 202 D MPV 10.2 Immature Gran % (Auto) 0.2 Neut % (Auto) 68.7 Lymph % (Auto) 18.8 L [place] % (Auto) 11.4 H Eos % (Auto) 0.7 Baso % (Auto) 0.2 Lymph # (Auto) 0.8 L [place] # (Auto) 0.5 Eos # (Auto) 0.0 Baso # (Auto) 0.0 Abs Immat Gran (auto) 0.01 Absolute Neuts (auto) 3.0 Absolute Nucleated RBC 0.000 Nucleated RBC % (auto) 0.0 D-Dimer High Sensitivty 191 Anion Gap Estim Creat Clear Calc Estimated GFR Random Glucose Lactic Acid 0.8 Calcium Total Bilirubin AST ALT Alkaline Phosphatase Troponin I High Sens B-Natriuretic Peptide Total Protein Albumin COVID-19 (STEPHEN) COVID-19 Clin Com 07/02/22 07/03/22 07/03/22 23:00 06:52 06:52 MCV 91.2 MCH 29.9 MCHC 32.8 RDW 14.1 Plt Count 206 MPV 10.2 Immature Gran % (Auto) 0.5 H Neut % (Auto) 87.8 H Lymph % (Auto) 8.8 L [place] % (Auto) 2.6 Eos % (Auto) 0.0 Baso % (Auto) 0.3 Lymph # (Auto) 0.3 L [place] # (Auto) 0.1 Eos # (Auto) 0.0 Baso # (Auto) 0.0 Abs Immat Gran (auto) 0.02 Absolute Neuts (auto) 3.4 Absolute Nucleated RBC 0.000 Nucleated RBC % (auto) 0.0 D-Dimer High Sensitivty Anion Gap 12 Estim Creat Clear Calc 97.2 Estimated GFR > 60 Random Glucose 168 H Lactic Acid Calcium 8.4 Total Bilirubin AST ALT Alkaline Phosphatase Troponin I High Sens < 3.5 B-Natriuretic Peptide Total Protein Albumin COVID-19 (STEPHEN) COVID-19 Clin Com Assessment and Plan (1) Hypoxia: Status: Acute Plan 52-year-old female with pertinent history of moderate persistent asthma, hypothyroidism, mood disorder, gastroesophageal reflux disease, morbid obesity, recent flu who presented for evaluation of shortness of breath. Acute hypoxic respiratory failure secondary to post flu pneumonia with concern for MDR organisms complicated by moderate persistent asthma with acute decompensation Steroids, bronchodilators, Rocephin, Zithromax, added vancomycin for MRSA coverage Check respiratory viral panel and MRSA swab Follow-up cultures Wean O2 as tolerated Morbid obesity Weight loss recommended HTN verapamil Hypothyroid Synthroid GERD PPI DVT prophylaxis with Lovenox Full code reason for continued hospitalization:hypoxia Time Spent With Patient Time: Total time managing care of this patient today ____ minutes. Quality Stroke Does the patient have a stroke diagnosis?: No VTE Prior VTE?: No VTE Risk Level:: Medical - moderate - high VTE Device Contraindication: Treatment Not Indicated VTE Drug Contraindication: N/A - Med Ordered
[2022-07-03 12:51] LABS: Adenovirus PCR Not Detected (Not Detect.); Bordetella parapertussis PCR Not Detected (Not Detect.); Bordetella pertussis PCR Not Detected (Not Detect.); Chlamydia pneumoniae PCR Not Detected (Not Detect.); Coronavirus 229E PCR Not Detected (Not Detect.); Coronavirus HKU1 PCR Not Detected (Not Detect.); Coronavirus NL63 PCR Not Detected (Not Detect.); Coronavirus OC43 PCR Not Detected (Not Detect.); Human metapneumovirus PCR Detected (Not Detect.); Influenza A PCR Not Detected (Not Detect.); Influenza B PCR Not Detected (Not Detect.); SARS-CoV-2 PCR Not Detected (Not Detect.)
[2022-07-03 12:52] LABS: Mycoplasma pneumoniae PCR Not Detected (Not Detect.); Parainfluenza 1 PCR Not Detected (Not Detect.); Parainfluenza 2 PCR Not Detected (Not Detect.); Parainfluenza 3 PCR Not Detected (Not Detect.); Parainfluenza 4 PCR Not Detected (Not Detect.); RSV PCR Not Detected (Not Detect.); Rhino/Enterovirus PCR Not Detected (Not Detect.)
--- NOTE | 2022-07-03 13:06 | PC.NURSE ---
Patient tolerated IV ABX with no ill effect up to commode with stand by assist no distress noted will CTM
--- NOTE | 2022-07-03 15:16 | PC.NURSE ---
Report to property adjuster will prepare for transport
[2022-07-03] MEDS: 0.9 % Sodium Chloride Flush 3 ML SYRINGE IVFLUSH ×2 (15:36→21:07)
[2022-07-03] MEDS: Omeprazole 20 MG CAPSULE.DR PO (15:36)
[2022-07-03] MEDS: diphenhydrAMINE HCL 25 MG CAPSULE PO (20:55)
[2022-07-03] MEDS: Ziprasidone 80 MG CAPSULE PO (20:55)
[2022-07-03] MEDS: LORazepam 1 MG TABLET PO (20:55)
[2022-07-03] MEDS: Montelukast Sodium 10 MG TABLET PO (20:56)
[2022-07-03] MEDS: VerapamiL HCL SR 240 MG TABLET.ER PO (21:10)
[2022-07-04] VITALS (9 sets, daily range): BP systolic 111–126; BP diastolic 60–72; PULSE 64–87; RESP 18–19; TEMP 36.1–37; O2SAT 91–98
[2022-07-04] MEDS: methylPREDNISolone Sod Succ 40 MG/ML VIAL IVPUSH ×3 (00:02→23:12)
[2022-07-04] MEDS: Enoxaparin Sodium 40 MG/0.4 ML SYRINGE SUBCUT ×2 (00:02→23:18)
[2022-07-04] MEDS: vancomycin HCL 1,000 MG in 0.9 % Sodium Chloride 250 ML 270 MG IV (00:02)
[2022-07-04] MEDS: cefTRIAXone sodium 1 GM in 0.9 % Sodium Chloride 50 ML IV ×2 (02:07→23:12)
[2022-07-04] MEDS: Levothyroxine Sodium 75 MCG TABLET PO (06:25)
[2022-07-04] MEDS: Omeprazole 20 MG CAPSULE.DR PO ×2 (06:25→16:03)
[2022-07-04 06:32] LABS: Hematocrit 37.7 % (37.0-47.0); Hemoglobin 12.4 g/dl (12.0-16.0); Mean Corpuscular HGB Conc 32.9 g/dl (31.0-35.0); Mean Corpuscular Hemoglobin 29.8 pg (27.0-33.0); Mean Corpuscular Volume 90.6 fL (80.0-98.0); Mean Platelet Volume 10.2 fL (9.4-12.3); Platelet Count 218 X10*3/uL (160-400); Red Blood Count 4.16 X10*6/uL (4.20-5.50); Red Cell Distribution Width 13.5 % (11.0-16.0); White Blood Count 6.6 X10*3/uL (4.8-10.8)
[2022-07-04 07:02] LABS: Anion Gap 14 (12-20); Blood Urea Nitrogen 13 mg/dL (9-16); Calcium 8.9 mg/dL (8.4-10.2); Carbon Dioxide 22 mmol/L (22-29); Chloride 109 mmol/L (96-108); Creatinine Clr Calc Pharmacy 114.8; Estimated Glomerular Filt Rate > 60; Glucose Fasting 154 mg/dL (60-99); Potassium 4.1 mmol/L (3.3-5.1); Sodium 141 mmol/L (135-145)
[2022-07-04] MEDS: Albuterol/Iprat 2.5/0.5MG 3 ML AMPUL.NEB INHALE ×4 (07:21→19:28)
[2022-07-04 08:41] LABS: MRSA Nasal PCR NEGATIVE (Negative); SA Nasal PCR NEGATIVE (Negative)
[2022-07-04] MEDS: 0.9 % Sodium Chloride Flush 3 ML SYRINGE IVFLUSH ×3 (09:04→23:18)
[2022-07-04] MEDS: Cyanocobalamin (Vitamin B-12) 1,000 MCG TABLET 1000 MCG PO (09:04)
[2022-07-04] MEDS: VerapamiL HCL SR 240 MG TABLET.ER PO ×2 (09:04→21:53)
[2022-07-04] MEDS: Ziprasidone 80 MG CAPSULE PO ×2 (09:04→21:53)
--- NOTE | 2022-07-04 09:40 | MHC.CM.PN ---
PT REPORTS SHE LIVES WITH HER DAUGHTER, DAUGHTERS HARVINDER, AND GRAND DAUGHTER SHE USES A WALKER FOR DME AND HAS NO SERVICES SHE IS COVID VAX SHE WILL DO A HCP TODAY NAMING HER DAUGHTER, LYNETTE, HER AGENT SHE REPORTS HE PCP IS JAMILA MARTI DELIVERED CURRENT DC PLAN IS HOME WITH NO SERVICES FAMILY TO TRANSPORT
--- NOTE | 2022-07-04 11:01 | P.PNIM_ITS ---
Subjective Subjective Date of Service: 07/04/22 Interval History: sob somewhat imrpoved Physical Exam Vital Signs: Vital Signs: Last Vital Signs Temp 97.3 F 07/04/22 07:33 Pulse 86 07/04/22 10:57 Resp 18 07/04/22 10:57 BP 122/67 07/04/22 07:33 Pulse Ox 91 L 07/04/22 07:33 O2 Del Method 07/04/22 07:33 O2 Flow Rate 4 07/04/22 07:33 BMI result Body Mass Index 50.8 General: AO X 3, no acute distress Resp: left cracklse, wheezes bilateral, no accessory muscles used CVS: S1,S2,RRR GI: soft, non tender, non distended Neuro: motor grossly intact, alert Psych: appropriate affect, appropriate insight Objective Data Active Medications Acetaminophen (Acetaminophen 325 Mg Tablet) 650 mg PO Q6H PRN PRN Reason: Pain, Mild (Pain Scale 1-3) Last Admin: 07/03/22 13:43 Dose: 650 mg Documented By: MARCIE Albuterol/Ipratropium (Albuterol/Iprat 2.5/0.5mg 3 Ml Ampul.Neb) 3 ml INHALE RQ4H WHILE AWAKE [facility] Last Admin: 07/04/22 10:57 Dose: 3 ml Documented By: TJ Albuterol/Ipratropium (Albuterol/Iprat 2.5/0.5mg 3 Ml Ampul.Neb) 3 ml INHALE Q6H PRN PRN Reason: Wheezing Cyanocobalamin (Cyanocobalamin (Vitamin B-12) 1,000 Mcg Tablet) 1,000 mcg PO DAILY [facility] Last Admin: 07/04/22 09:04 Dose: 1,000 mcg Documented By: JAMARI Diphenhydramine HCl (Diphenhydramine Hcl 25 Mg Capsule) 25 mg PO BEDTIME [facility] Last Admin: 07/03/22 20:55 Dose: 25 mg Documented By: MARTHA Enoxaparin Sodium (Enoxaparin Sodium 40 Mg/0.4 Ml Syringe) 40 mg SUBCUT Q24H [facility] Last Admin: 07/04/22 00:02 Dose: 40 mg Documented By: MARTHA Ceftriaxone Sodium 1 gm/ (Sodium Chloride) 50 mls @ 100 mls/hr IV Q24H [facility] Last Infusion: 07/04/22 02:39 Dose: 0 mls/hr Documented By: MARTHA Azithromycin 500 mg/ Sodium (Chloride) 250 mls @ 125 mls/hr IV Q24H [facility] Last Infusion: 07/03/22 23:18 Dose: 0 mls/hr Documented By: MARTHA Levothyroxine Sodium (Levothyroxine Sodium 75 Mcg Tablet) 75 mcg PO DAILY@0600 [facility] Last Admin: 07/04/22 06:25 Dose: 75 mcg Documented By: MARTHA Loratadine (Loratadine 10 Mg Tablet) 10 mg PO BEDTIME [facility] Last Admin: 07/03/22 21:13 Dose: Not Given Documented By: MARTHA Non-Admin Reason: Patient Refused Lorazepam (Lorazepam 0.5 Mg Tablet) 0.5 mg PO DAILY PRN PRN Reason: Anxiety Lorazepam (Lorazepam 1 Mg Tablet) 1 mg PO BEDTIME [facility] Last Admin: 07/03/22 20:55 Dose: 1 mg Documented By: MARTHA Melatonin (Melatonin 3 Mg Tablet) 6 mg PO BEDTIME PRN PRN Reason: Insomnia Last Admin: 07/03/22 00:50 Dose: 6 mg Documented By: TUYET Methylprednisolone Sodium Succinate (Methylprednisolone Sod Succ 40 Mg/Ml Vial) 40 mg IVPUSH Q12H [facility] Last Admin: 07/04/22 00:02 Dose: 40 mg Documented By: MARTHA Montelukast Sodium (Montelukast Sodium 10 Mg Tablet) 10 mg PO BEDTIME [facility] Last Admin: 07/03/22 20:56 Dose: 10 mg Documented By: MARTHA Non-Formulary Medication (Bupropion Hcl (Smoking Deter)) 1 tab PO BID [facility] Omeprazole (Omeprazole 20 Mg Capsule.Dr) 20 mg PO BID@0630,1630 [facility] Last Admin: 07/04/22 06:25 Dose: 20 mg Documented By: MARTHA Ondansetron HCl (Ondansetron Hcl 4 Mg/2 Ml Vial) 4 mg IVPUSH Q8H PRN PRN Reason: Nausea and Vomiting Pharmacy Consult (Consult Rx Perform Med Rec) 1 each MISCELLANE ONCE PRN PRN Reason: Consult order Sodium Chloride (0.9 % Sodium Chloride Flush 3 Ml Syringe) 3 ml IVFLUSH QSHIFT [facility] Last Admin: 07/04/22 09:04 Dose: 3 ml Documented By: JAMARI Verapamil HCl (Verapamil Hcl Sr 240 Mg Tablet.Er) 240 mg PO BID [facility]; Protocol Last Admin: 07/04/22 09:04 Dose: 240 mg Documented By: JAMARI Ziprasidone (Ziprasidone 80 Mg Capsule) 80 mg PO BID [facility] Last Admin: 07/04/22 09:04 Dose: 80 mg Documented By: JAMARI Zolpidem Tartrate (Zolpidem Tartrate 5 Mg Tablet) 5 mg PO BEDTIME PRN PRN Reason: insomnia Labs 07/04/22 05:57 07/04/22 05:57 Labs: Laboratory Results - last 24 hr 07/03/22 07/03/22 07/04/22 09:59 20:05 05:57 MCV MCH MCHC RDW Plt Count MPV Absolute Nucleated RBC Nucleated RBC % (auto) Anion Gap 14 Estim Creat Clear Calc 114.8 Estimated GFR > 60 Fasting Glucose 154 H Calcium 8.9 Nasal Screen MRSA (PCR) NEGATIVE Nasal S. aureus Screen NEGATIVE Nasal MRSA/S.aureus Interp SEE NOTE Respiratory Panel Riggs See Note Adenovirus (Rapid PCR) Not Detected B.pert (TEM-PCR) Not Detected B.parapertussis DNA PCR Not Detected C. pneumoniae DNA (PCR) Not Detected Coronavirus OC43 (PCR) Not Detected Coronavirus HKU1 (PCR) Not Detected Coronavirus 229E (PCR) Not Detected Coronavirus NL63 (PCR) Not Detected Human Metapneumovir PCR Detected A Influenza A (RT-PCR) Not Detected Influenza B (RT-PCR) Not Detected M. pneumoniae (PCR) Not Detected Parainfluenza 1 (PCR) Not Detected Parainfluenza 2 (PCR) Not Detected Parainfluenza 3 (PCR) Not Detected Parainfluenza 4 (PCR) Not Detected RSV (PCR) Not Detected Entero/Rhino (PCR) Not Detected SARS-CoV-2 RNA (RT-PCR) Not Detected 07/04/22 05:57 MCV 90.6 MCH 29.8 MCHC 32.9 RDW 13.5 Plt Count 218 MPV 10.2 Absolute Nucleated RBC 0.000 Nucleated RBC % (auto) 0.0 Anion Gap Estim Creat Clear Calc Estimated GFR Fasting Glucose Calcium Nasal Screen MRSA (PCR) Nasal S. aureus Screen Nasal MRSA/S.aureus Interp Respiratory Panel Riggs Adenovirus (Rapid PCR) B.pert (TEM-PCR) B.parapertussis DNA PCR C. pneumoniae DNA (PCR) Coronavirus OC43 (PCR) Coronavirus HKU1 (PCR) Coronavirus 229E (PCR) Coronavirus NL63 (PCR) Human Metapneumovir PCR Influenza A (RT-PCR) Influenza B (RT-PCR) M. pneumoniae (PCR) Parainfluenza 1 (PCR) Parainfluenza 2 (PCR) Parainfluenza 3 (PCR) Parainfluenza 4 (PCR) RSV (PCR) Entero/Rhino (PCR) SARS-CoV-2 RNA (RT-PCR) Microbiology Microbiology Results: Microbiology 07/02/22 23:00 Blood Culture - Preliminary Blood - Venous No growth after 24 hours. 07/02/22 23:00 Blood Culture - Preliminary Blood - Venous No growth after 24 hours. Assessment and Plan (1) Hypoxia: Status: Acute Plan 52-year-old female with pertinent history of moderate persistent asthma, hypothyroidism, mood disorder, gastroesophageal reflux disease, morbid obesity, recent flu who presented for evaluation of shortness of breath. Acute hypoxic respiratory failure secondary to viral pneumonia with human metapneumovirus complicated by moderate persistent asthma with acute deco mpensation concern for superimposed bacterial pneumonia, mrsa screen negative - will dc vanc, conitnue rocephin, azithro, check procalcitonin - will dc abx if low Steroids, bronchodilators Wean O2 as tolerated Morbid obesity Weight loss recommended HTN verapamil Hypothyroid Synthroid GERD PPI DVT prophylaxis with Lovenox Full code reason for continued hospitalization:hypoxia Time Spent With Patient Time: Total time managing care of this patient today ____ minutes. Quality Stroke Does the patient have a stroke diagnosis?: No VTE Prior VTE?: No VTE Risk Level:: Medical - moderate - high VTE Device Contraindication: Treatment Not Indicated VTE Drug Contraindication: N/A - Med Ordered
[2022-07-04 11:40] LABS: Procalcitonin 0.03 ng/mL
--- NOTE | 2022-07-04 12:34 | MHC.CLN ---
NUTRITION CONSULT FOR WEIGHT LOSS. PATIENT REPORTS 23# WEIGHT LOSS BUT UNSURE OF TIMEFRAME. REPORTS THAT ANOTHER FAMILY MEMBER STARTED COOKING MEALS THIS PAST SUMMER AND BRINGING HER SMALLER PORTIONS. ALSO, REPORTS NOT EATING MUCH JUNK FOOD. WEIGHT LOSS FAVORABLE WITH BMI>50. WEIGHT LOSS LIKELY DUE TO IMPROVED EATING HABITS. ADVISED PATIENT TO DISCUSS WITH PROVIDER.
--- NOTE | 2022-07-04 12:43 | MHC.CM.PN ---
PATIENT STILL HYPOXIC. NO PLAN FOR DC TODAY
[2022-07-04] MEDS: diphenhydrAMINE HCL 25 MG CAPSULE PO (21:53)
[2022-07-04] MEDS: LORazepam 1 MG TABLET PO (21:53)
[2022-07-04] MEDS: Loratadine 10 MG TABLET PO (21:53)
[2022-07-04] MEDS: Montelukast Sodium 10 MG TABLET PO (21:53)
[2022-07-04] MEDS: Azithromycin 500 MG in 0.9 % Sodium Chloride 250 ML 125 MG IV (21:54)
[2022-07-05] VITALS (8 sets, daily range): BP systolic 119–138; BP diastolic 63–68; PULSE 57–79; RESP 18–20; TEMP 36.1–36.4; O2SAT 91–94
[2022-07-05] MEDS: Zolpidem Tartrate 5 MG TABLET PO (00:07)
[2022-07-05] MEDS: Acetaminophen 325 MG TABLET 650 MG PO ×2 (00:07→06:06)
[2022-07-05] MEDS: Omeprazole 20 MG CAPSULE.DR PO ×2 (05:29→15:37)
[2022-07-05] MEDS: Levothyroxine Sodium 75 MCG TABLET PO (05:29)
[2022-07-05] MEDS: Albuterol/Iprat 2.5/0.5MG 3 ML AMPUL.NEB INHALE ×5 (05:47→19:34)
[2022-07-05 06:12] LABS: Hematocrit 37.5 % (37.0-47.0); Hemoglobin 12.2 g/dl (12.0-16.0); Mean Corpuscular HGB Conc 32.5 g/dl (31.0-35.0); Mean Corpuscular Hemoglobin 29.4 pg (27.0-33.0); Mean Corpuscular Volume 90.4 fL (80.0-98.0); Mean Platelet Volume 10.3 fL (9.4-12.3); Platelet Count 226 X10*3/uL (160-400); Red Blood Count 4.15 X10*6/uL (4.20-5.50); Red Cell Distribution Width 13.6 % (11.0-16.0); White Blood Count 9.4 X10*3/uL (4.8-10.8)
[2022-07-05 06:30] LABS: Anion Gap 13 (12-20); Blood Urea Nitrogen 21 mg/dL (9-16); Calcium 8.8 mg/dL (8.4-10.2); Carbon Dioxide 24 mmol/L (22-29); Chloride 108 mmol/L (96-108); Creatinine Clr Calc Pharmacy 104.6; Estimated Glomerular Filt Rate > 60; Glucose Fasting 165 mg/dL (60-99); Potassium 3.9 mmol/L (3.3-5.1); Sodium 141 mmol/L (135-145)
[2022-07-05] MEDS: Ziprasidone 80 MG CAPSULE PO ×2 (08:08→21:23)
[2022-07-05] MEDS: Cyanocobalamin (Vitamin B-12) 1,000 MCG TABLET 1000 MCG PO (08:08)
[2022-07-05] MEDS: 0.9 % Sodium Chloride Flush 3 ML SYRINGE IVFLUSH ×3 (08:08→23:54)
[2022-07-05] MEDS: VerapamiL HCL SR 240 MG TABLET.ER PO ×2 (08:08→21:23)
--- NOTE | 2022-07-05 09:11 | HO.PM.IMPN ---
Subjective Subjective Date of Service: 07/05/22 Interval History: sob somewhat improved Physical Exam Vital Signs: Vital Signs: Last Vital Signs Temp 97.4 F 07/05/22 07:57 Pulse 60 07/05/22 08:37 Resp 18 07/05/22 08:37 BP 119/64 07/05/22 07:57 Pulse Ox 91 L 07/05/22 07:57 O2 Del Method 07/05/22 07:57 O2 Flow Rate 4 07/05/22 07:57 BMI result Body Mass Index 50.8 General: AO X 3, no acute distress Resp: diminished bilateral, no accessory muscles used CVS: S1,S2,RRR GI: soft, non tender, non distended Neuro: motor grossly intact, alert Psych: appropriate affect, appropriate insight Objective Data Active Medications Acetaminophen (Acetaminophen 325 Mg Tablet) 650 mg PO Q6H PRN PRN Reason: Pain, Mild (Pain Scale 1-3) Last Admin: 07/05/22 06:06 Dose: 650 mg Documented By: MELONY Albuterol/Ipratropium (Albuterol/Iprat 2.5/0.5mg 3 Ml Ampul.Neb) 3 ml INHALE RQ4H WHILE AWAKE PENDING SALE TO [facility] Last Admin: 07/05/22 08:37 Dose: 3 ml Documented By: ALIX Albuterol/Ipratropium (Albuterol/Iprat 2.5/0.5mg 3 Ml Ampul.Neb) 3 ml INHALE Q6H PRN PRN Reason: Wheezing Last Admin: 07/05/22 05:47 Dose: 3 ml Documented By: SHEYLA Cyanocobalamin (Cyanocobalamin (Vitamin B-12) 1,000 Mcg Tablet) 1,000 mcg PO DAILY [facility]END[facility] TO [facility] Last Admin: 07/05/22 08:08 Dose: 1,000 mcg Documented By: KELLY Diphenhydramine HCl (Diphenhydramine Hcl 25 Mg Capsule) 25 mg PO BEDTIME [facility]END[facility] TO [facility] Last Admin: 07/04/22 21:53 Dose: 25 mg Documented By: MELONY Enoxaparin Sodium (Enoxaparin Sodium 40 Mg/0.4 Ml Syringe) 40 mg SUBCUT Q24H [facility]END[facility] TO [facility] Last Admin: 07/04/22 23:18 Dose: 40 mg Documented By: MELONY Levothyroxine Sodium (Levothyroxine Sodium 75 Mcg Tablet) 75 mcg PO DAILY@0600 PEND[facility] TO [facility] Last Admin: 07/05/22 05:29 Dose: 75 mcg Documented By: MELONY Loratadine (Loratadine 10 Mg Tablet) 10 mg PO BEDTIME [facility]END[facility] TO [facility] Last Admin: 07/04/22 21:53 Dose: 10 mg Documented By: MELONY Lorazepam (Lorazepam 0.5 Mg Tablet) 0.5 mg PO DAILY PRN PRN Reason: Anxiety Lorazepam (Lorazepam 1 Mg Tablet) 1 mg PO BEDTIME [facility]END[facility] TO [facility] Last Admin: 07/04/22 21:53 Dose: 1 mg Documented By: MELONY Melatonin (Melatonin 3 Mg Tablet) 6 mg PO BEDTIME PRN PRN Reason: Insomnia Last Admin: 07/03/22 00:50 Dose: 6 mg Documented By: TUYET Methylprednisolone Sodium Succinate (Methylprednisolone Sod Succ 40 Mg/Ml Vial) 40 mg IVPUSH Q12H PEND[facility] TO [facility] Last Admin: 07/04/22 23:12 Dose: 40 mg Documented By: MELONY Montelukast Sodium (Montelukast Sodium 10 Mg Tablet) 10 mg PO BEDTIME [facility]END[facility] TO [facility] Last Admin: 07/04/22 21:53 Dose: 10 mg Documented By: MELONY Non-Formulary Medication (Bupropion Hcl (Smoking Deter)) 1 tab PO BID [facility]END[facility] TO [facility] Omeprazole (Omeprazole 20 Mg Capsule.Dr) 20 mg PO BID@0630,1630 PEND[facility] TO [facility] Last Admin: 07/05/22 05:29 Dose: 20 mg Documented By: MELONY Ondansetron HCl (Ondansetron Hcl 4 Mg/2 Ml Vial) 4 mg IVPUSH Q8H PRN PRN Reason: Nausea and Vomiting Pharmacy Consult (Consult Rx Perform Med Rec) 1 each MISCELLANE ONCE PRN PRN Reason: Consult order Sodium Chloride (0.9 % Sodium Chloride Flush 3 Ml Syringe) 3 ml IVFLUSH QSHIFT PENDING [facility]ALE TO [facility] Last Admin: 07/05/22 08:08 Dose: 3 ml Documented By: KELLY Verapamil HCl (Verapamil Hcl Sr 240 Mg Tablet.Er) 240 mg PO BID PEND[facility] TO [facility]; Protocol Last Admin: 07/05/22 08:08 Dose: 240 mg Documented By: KELLY Ziprasidone (Ziprasidone 80 Mg Capsule) 80 mg PO BID PENDING [facility]ALE TO [facility] Last Admin: 07/05/22 08:08 Dose: 80 mg Documented By: KELLY Zolpidem Tartrate (Zolpidem Tartrate 5 Mg Tablet) 5 mg PO BEDTIME PRN PRN Reason: insomnia Last Admin: 07/05/22 00:07 Dose: 5 mg Documented By: MELONY Labs 07/05/22 05:49 07/05/22 05:49 Labs: Laboratory Results - last 24 hr 07/04/22 07/05/22 07/05/22 05:57 05:49 05:49 MCV 90.4 MCH 29.4 MCHC 32.5 RDW 13.6 Plt Count 226 MPV 10.3 Absolute Nucleated RBC 0.000 Nucleated RBC % (auto) 0.0 Anion Gap 13 Estim Creat Clear Calc 104.6 Estimated GFR > 60 Fasting Glucose 165 H Calcium 8.8 Procalcitonin 0.03 Microbiology Microbiology Results: Microbiology 07/02/22 23:00 Blood Culture - Preliminary Blood - Venous No growth after 48 hours. 07/02/22 23:00 Blood Culture - Preliminary Blood - Venous No growth after 48 hours. Assessment and Plan (1) Hypoxia: Status: Acute Plan 52-year-old female with pertinent history of moderate persistent asthma, hypothyroidism, mood disorder, gastroesophageal reflux disease, morbid obesity, recent flu who presented for evaluation of shortness of breath. Acute hypoxic respiratory failure secondary to viral pneumonia with human metapneumovirus complicated by moderate persistent asthma with acute decompensation low procalcitonin - bacterial pna less likely, will dc abx Steroids, bronchodilators Wean O2 as tolerated Morbid obesity Weight loss recommended HTN verapamil Hypothyroid Synthroid GERD PPI DVT prophylaxis with Lovenox Full code reason for continued hospitalization:hypoxia Time Spent With Patient Time: Total time managing care of this patient today ____ minutes. Quality Stroke Does the patient have a stroke diagnosis?: No VTE Prior VTE?: No VTE Risk Level:: Medical - moderate - high VTE Device Contraindication: Treatment Not Indicated VTE Drug Contraindication: N/A - Med Ordered
[2022-07-05] MEDS: methylPREDNISolone Sod Succ 40 MG/ML VIAL IVPUSH ×2 (10:19→23:55)
[2022-07-05] MEDS: Montelukast Sodium 10 MG TABLET PO (21:23)
[2022-07-05] MEDS: Loratadine 10 MG TABLET PO (21:23)
[2022-07-05] MEDS: LORazepam 1 MG TABLET PO (21:23)
[2022-07-05] MEDS: diphenhydrAMINE HCL 25 MG CAPSULE PO (21:24)
[2022-07-05] MEDS: Enoxaparin Sodium 40 MG/0.4 ML SYRINGE SUBCUT (23:53)
[2022-07-06] VITALS (8 sets, daily range): BP systolic 120–135; BP diastolic 66–73; PULSE 58–75; RESP 18–20; TEMP 36.1–36.4; O2SAT 91–94
[2022-07-06] MEDS: Levothyroxine Sodium 75 MCG TABLET PO (05:35)
[2022-07-06] MEDS: Omeprazole 20 MG CAPSULE.DR PO ×2 (05:35→15:47)
[2022-07-06 07:45] LABS: Hematocrit 38.1 % (37.0-47.0); Hemoglobin 12.4 g/dl (12.0-16.0); Mean Corpuscular HGB Conc 32.5 g/dl (31.0-35.0); Mean Corpuscular Hemoglobin 29.6 pg (27.0-33.0); Mean Corpuscular Volume 90.9 fL (80.0-98.0); Mean Platelet Volume 10.8 fL (9.4-12.3); Platelet Count 236 X10*3/uL (160-400); Red Blood Count 4.19 X10*6/uL (4.20-5.50); Red Cell Distribution Width 13.5 % (11.0-16.0); White Blood Count 11.4 X10*3/uL (4.8-10.8)
[2022-07-06] MEDS: Albuterol/Iprat 2.5/0.5MG 3 ML AMPUL.NEB INHALE ×4 (08:16→19:44)
[2022-07-06] MEDS: 0.9 % Sodium Chloride Flush 3 ML SYRINGE IVFLUSH ×3 (08:31→20:45)
[2022-07-06] MEDS: VerapamiL HCL SR 240 MG TABLET.ER PO ×2 (08:31→20:45)
[2022-07-06] MEDS: Cyanocobalamin (Vitamin B-12) 1,000 MCG TABLET 1000 MCG PO (08:31)
[2022-07-06] MEDS: Ziprasidone 80 MG CAPSULE PO ×2 (08:31→20:45)
[2022-07-06 08:34] LABS: Anion Gap 15 (12-20); Blood Urea Nitrogen 21 mg/dL (9-16); Carbon Dioxide 23 mmol/L (22-29); Chloride 107 mmol/L (96-108); Estimated Glomerular Filt Rate > 60; Glucose Fasting 167 mg/dL (60-99); Potassium 4.4 mmol/L (3.3-5.1); Sodium 141 mmol/L (135-145)
--- NOTE | 2022-07-06 09:33 | P.PNIM_ITS ---
Subjective Subjective Date of Service: 07/06/22 Interval History: sob somewhat improved Physical Exam Vital Signs: Vital Signs: Last Vital Signs Temp 97.5 F 07/06/22 08:00 Pulse 61 07/06/22 08:18 Resp 18 07/06/22 08:18 BP 128/73 07/06/22 08:00 Pulse Ox 94 07/06/22 08:00 O2 Del Method 07/06/22 08:00 O2 Flow Rate 2 07/06/22 08:00 BMI result Body Mass Index 50.8 General: AO X 3, no acute distress Resp: diminished bilateral, no accessory muscles used CVS: S1,S2,RRR GI: soft, non tender, non distended Neuro: motor grossly intact, alert Psych: appropriate affect, appropriate insight Objective Data Active Medications Acetaminophen (Acetaminophen 325 Mg Tablet) 650 mg PO Q6H PRN PRN Reason: Pain, Mild (Pain Scale 1-3) Last Admin: 07/05/22 06:06 Dose: 650 mg Documented By: MELONY Albuterol/Ipratropium (Albuterol/Iprat 2.5/0.5mg 3 Ml Ampul.Neb) 3 ml INHALE RQ4H WHILE AWAKE [facility] Last Admin: 07/06/22 08:16 Dose: 3 ml Documented By: LAUREN Albuterol/Ipratropium (Albuterol/Iprat 2.5/0.5mg 3 Ml Ampul.Neb) 3 ml INHALE Q6H PRN PRN Reason: Wheezing Last Admin: 07/05/22 05:47 Dose: 3 ml Documented By: SHEYLA Cyanocobalamin (Cyanocobalamin (Vitamin B-12) 1,000 Mcg Tablet) 1,000 mcg PO DAILY [facility] Last Admin: 07/06/22 08:31 Dose: 1,000 mcg Documented By: KELLY Diphenhydramine HCl (Diphenhydramine Hcl 25 Mg Capsule) 25 mg PO BEDTIME [facility] Last Admin: 07/05/22 21:24 Dose: 25 mg Documented By: MELONY Enoxaparin Sodium (Enoxaparin Sodium 40 Mg/0.4 Ml Syringe) 40 mg SUBCUT Q24H [facility] Last Admin: 07/05/22 23:53 Dose: 40 mg Documented By: MELONY Levothyroxine Sodium (Levothyroxine Sodium 75 Mcg Tablet) 75 mcg PO DAILY@0600 [facility] Last Admin: 07/06/22 05:35 Dose: 75 mcg Documented By: MELONY Loratadine (Loratadine 10 Mg Tablet) 10 mg PO BEDTIME [facility] Last Admin: 07/05/22 21:23 Dose: 10 mg Documented By: MELONY Lorazepam (Lorazepam 0.5 Mg Tablet) 0.5 mg PO DAILY PRN PRN Reason: Anxiety Lorazepam (Lorazepam 1 Mg Tablet) 1 mg PO BEDTIME [facility] Last Admin: 07/05/22 21:23 Dose: 1 mg Documented By: MELONY Melatonin (Melatonin 3 Mg Tablet) 6 mg PO BEDTIME PRN PRN Reason: Insomnia Last Admin: 07/03/22 00:50 Dose: 6 mg Documented By: TUYET Methylprednisolone Sodium Succinate (Methylprednisolone Sod Succ 40 Mg/Ml Vial) 40 mg IVPUSH Q12H [facility] Last Admin: 07/05/22 23:55 Dose: 40 mg Documented By: MELONY Montelukast Sodium (Montelukast Sodium 10 Mg Tablet) 10 mg PO BEDTIME [facility] Last Admin: 07/05/22 21:23 Dose: 10 mg Documented By: MELONY Non-Formulary Medication (Bupropion Hcl (Smoking Deter)) 1 tab PO BID [facility] Omeprazole (Omeprazole 20 Mg Capsule.Dr) 20 mg PO BID@0630,1630 [facility] Last Admin: 07/06/22 05:35 Dose: 20 mg Documented By: MELONY Ondansetron HCl (Ondansetron Hcl 4 Mg/2 Ml Vial) 4 mg IVPUSH Q8H PRN PRN Reason: Nausea and Vomiting Pharmacy Consult (Consult Rx Perform Med Rec) 1 each MISCELLANE ONCE PRN PRN Reason: Consult order Sodium Chloride (0.9 % Sodium Chloride Flush 3 Ml Syringe) 3 ml IVFLUSH QSHIFT [facility] Last Admin: 07/06/22 08:31 Dose: 3 ml Documented By: KELLY Verapamil HCl (Verapamil Hcl Sr 240 Mg Tablet.Er) 240 mg PO BID [facility]; Protocol Last Admin: 07/06/22 08:31 Dose: 240 mg Documented By: KELLY Ziprasidone (Ziprasidone 80 Mg Capsule) 80 mg PO BID [facility] Last Admin: 07/06/22 08:31 Dose: 80 mg Documented By: KELLY Zolpidem Tartrate (Zolpidem Tartrate 5 Mg Tablet) 5 mg PO BEDTIME PRN PRN Reason: insomnia Last Admin: 07/05/22 00:07 Dose: 5 mg Documented By: MELONY Labs 07/06/22 06:08 07/06/22 06:08 Labs: Laboratory Results - last 24 hr 07/06/22 07/06/22 06:08 06:08 MCV 90.9 MCH 29.6 MCHC 32.5 RDW 13.5 Plt Count 236 MPV 10.8 Absolute Nucleated RBC 0.000 Nucleated RBC % (auto) 0.0 Anion Gap 15 Estim Creat Clear Calc 106.0 Estimated GFR > 60 Fasting Glucose 167 H Calcium 9.0 Assessment and Plan (1) Hypoxia: Status: Acute Plan 52-year-old female with pertinent history of moderate persistent asthma, hypothyroidism, mood disorder, gastroesophageal reflux disease, morbid obesity, recent flu who presented for evaluation of shortness of breath. Acute hypoxic respiratory failure secondary to viral pneumonia with human metapneumovirus complicated by moderate persistent asthma with acute decompensation low procalcitonin - bacterial pna less likely, now off abx Steroids, bronchodilators Wean O2 as tolerated Morbid obesity Weight loss recommended HTN verapamil Hypothyroid Synthroid GERD PPI DVT prophylaxis with Lovenox Full code reason for continued hospitalization:hypoxia Time Spent With Patient Time: Total time managing care of this patient today ____ minutes. Quality Stroke Does the patient have a stroke diagnosis?: No VTE Prior VTE?: No VTE Risk Level:: Medical - moderate - high VTE Device Contraindication: Treatment Not Indicated VTE Drug Contraindication: N/A - Med Ordered
[2022-07-06] MEDS: methylPREDNISolone Sod Succ 40 MG/ML VIAL IVPUSH ×2 (10:46→21:56)
[2022-07-06] MEDS: Acetaminophen 325 MG TABLET 650 MG PO (17:10)
[2022-07-06] MEDS: LORazepam 1 MG TABLET PO (20:45)
[2022-07-06] MEDS: diphenhydrAMINE HCL 25 MG CAPSULE PO (20:45)
[2022-07-06] MEDS: Loratadine 10 MG TABLET PO (20:45)
[2022-07-06] MEDS: Montelukast Sodium 10 MG TABLET PO (20:45)
[2022-07-06] MEDS: Enoxaparin Sodium 40 MG/0.4 ML SYRINGE SUBCUT (21:56)
[2022-07-07 02:54] VITALS: BP 136/74; PULSE 64; RESP 17; TEMP 36.1; O2SAT 92
[2022-07-07] MEDS: Omeprazole 20 MG CAPSULE.DR PO ×2 (06:24→15:48)
[2022-07-07] MEDS: Levothyroxine Sodium 75 MCG TABLET PO (06:24)
[2022-07-07 06:45] LABS: Hematocrit 37.4 % (37.0-47.0); Hemoglobin 12.2 g/dl (12.0-16.0); Mean Corpuscular HGB Conc 32.6 g/dl (31.0-35.0); Mean Corpuscular Hemoglobin 28.9 pg (27.0-33.0); Mean Corpuscular Volume 88.6 fL (80.0-98.0); Mean Platelet Volume 10.1 fL (9.4-12.3); Platelet Count 222 X10*3/uL (160-400); Red Blood Count 4.22 X10*6/uL (4.20-5.50); Red Cell Distribution Width 13.2 % (11.0-16.0); White Blood Count 11.6 X10*3/uL (4.8-10.8)
[2022-07-07 07:01] LABS: Anion Gap 15 (12-20); Blood Urea Nitrogen 24 mg/dL (9-16); Carbon Dioxide 23 mmol/L (22-29); Chloride 105 mmol/L (96-108); Creatinine Clr Calc Pharmacy 108.7; Estimated Glomerular Filt Rate > 60; Glucose Fasting 176 mg/dL (60-99); Potassium 4.4 mmol/L (3.3-5.1); Sodium 139 mmol/L (135-145)
[2022-07-07 07:44] VITALS: BP 131/77; PULSE 59; RESP 18; TEMP 36.4; O2SAT 94
[2022-07-07] MEDS: Albuterol/Iprat 2.5/0.5MG 3 ML AMPUL.NEB INHALE ×3 (08:04→15:08)
[2022-07-07 08:05] VITALS: PULSE 58; RESP 18; O2SAT 91
--- NOTE | 2022-07-07 08:49 | P.DS_ITS ---
DS: Providers Provider Date of Service: 07/07/22 Date of admission: 07/02/22 22:45 Primary care physician: Davida Pena MD DS: Diagnosis Discharge Diagnosis (1) Hypoxia: Status: Acute DS: Summary Hospital Course Hospital Course: from initial hpi: Chief Complaint: Dyspnea This is a 52-year-old female with pertinent history of asthma, hypothyroidism, mood disorder, gastroesophageal reflux disease who presents to the emergency department for evaluation of shortness of breath.? Patient states she has been having dyspnea, worse with exertion that started about 2 days ago.? It is associated with cough.? Endorses fever and chills.? Has associated wheezing.? Aaron garrison used her home inhaler without relief.? She denies chest discomfort, palpitations, abdominal pain, changes in urinary or bowel habits. The emergency department, imaging with left-sided consolidation.? Patient was found to be hypoxic with ambulation. hospital course: Patient was admitted for acute hypoxic respiratory failure secondary to viral pneumonia with human metapneumovirus complicated by moderate persistent asthma with acute decompensation. Negative MRSA screen and low procalcitonin, negative cultures therefore bacterial pneumonia not likely. Patient was taken off antibiotics. She was treated with steroids and bronchodilators. Oxygen was weaned and she is now on room air. She will be discharged on 5 more days of prednisone. For morbid obesity weight loss is recommended. For hypertension she was continued on verapamil. For hypothyroidism she was continue on Synthroid. For GERD she was continued on PPI. Patient is feeling better will be discharged home. Time Spent with Patient Time attestation: Total time managing care of this patient today ____ minutes. Discharge coordination time: Greater than 30 minutes Quality: Safe Use of Opioids Does Pt have an Active Cancer Diagnosis on the Problem List?: No Quality: Stroke Does the patient have a stroke diagnosis?: No Physical Exam Vital Signs: Vital Signs: Last Vital Signs Temp 97.5 F 07/07/22 07:44 Pulse 58 07/07/22 08:05 Resp 18 07/07/22 08:05 BP 131/77 07/07/22 07:44 Pulse Ox 94 07/07/22 07:44 O2 Del Method 07/07/22 07:44 O2 Flow Rate 2 07/07/22 02:54 BMI result Body Mass Index 50.8 General: AO X 3, no acute distress Resp: CTA bilateral, no accessory muscles used CVS: S1,S2,RRR GI: soft, non tender, non distended Neuro: motor grossly intact, alert Psych: appropriate affect, appropriate insight DS: Data Data Completed and Pending Labs on day of discharge: Laboratory Results - last 24 hr 07/07/22 07/07/22 06:03 06:03 WBC 11.6 H RBC 4.22 Hgb 12.2 Hct 37.4 MCV 88.6 MCH 28.9 MCHC 32.6 RDW 13.2 Plt Count 222 MPV 10.1 Absolute Nucleated RBC 0.000 Nucleated RBC % (auto) 0.0 Sodium 139 Potassium 4.4 Chloride 105 Carbon Dioxide 23 Anion Gap 15 BUN 24 H Creatinine 0.76 Estim Creat Clear Calc 108.7 Estimated GFR > 60 Fasting Glucose 176 H Calcium 9.0 Preliminary micro results at discharge 07/02/22 23:00 Blood Culture - Preliminary Blood - Venous No growth after 48 hours. 07/02/22 23:00 Blood Culture - Preliminary Blood - Venous No growth after 48 hours. Discharge Plan Discharge Anticipated Discharge Date/Time: 07/07/22 08:44 Patient Disposition: Home, Self-Care Discharge Diagnosis: Human metapneumovirus Referrals: Davida Pena MD [Primary Care Provider] - 1 Week Discharge Medications: New prednisone 20 mg tablet 40 mg PO DAILY Qty: 10 0RF Continued ziprasidone HCl 80 mg capsule 1 cap PO BID cyanocobalamin (vitamin B-12) 1,000 mcg tablet 1 tab PO DAILY levothyroxine 75 mcg tablet 1 tab PO DAILY@0600 lorazepam 0.5 mg tablet 2 tab PO BEDTIME omeprazole 20 mg capsule,delayed release(DR/EC) 20 mg PO BID@0630,1630 verapamil 240 mg tablet extended release 1 tab PO BID montelukast 10 mg tablet 1 tab PO BEDTIME zolpidem 10 mg tablet 1 tab PO BEDTIME PRN (Reason: insomnia) albuterol sulfate 90 mcg/actuation HFA aerosol inhaler 2 puff INHALATION Q6H PRN (Reason: wheezing) trihexyphenidyl 2 mg tablet 0.5 tab PO BID Dulera 200-5 mcg/actuation HFA aerosol inhaler 2 puff INHALATION BID bupropion HCl (smoking deter) 150 mg tablet extended release 12 hr 1 tab PO BID albuterol sulfate 1.25 mg/3 mL solution for nebulization 1.25 mg inhalation Q4-6H PRN (Reason: shortness of breath or wheezing) Qty: 75 0RF cetirizine [Zyrtec] 10 mg Tablet 10 mg PO BEDTIME lorazepam 0.5 mg tablet 1 tab PO DAILY PRN (Reason: Anxiety) diphenhydramine HCl [Benadryl] 25 mg Capsule 25 mg PO BEDTIME melatonin 5 mg Tablet 5 mg PO BEDTIME Discharge Orders: Discharge Order (Routine); Ordered 07/07/22 Ordered By: Mj Forrester Diet: Advance to usual diet Activity on Discharge: As tolerated Stand Alone Forms: Patient Portal Discharge page Care Plan Goals: recovery Health Concerns: asthma, human metapneumovirus Plan of Treatment: prednisone Assessment: see above
[2022-07-07] MEDS: 0.9 % Sodium Chloride Flush 3 ML SYRINGE IVFLUSH ×2 (09:05→15:48)
[2022-07-07] MEDS: VerapamiL HCL SR 240 MG TABLET.ER PO (09:05)
[2022-07-07] MEDS: Ziprasidone 80 MG CAPSULE PO (09:05)
[2022-07-07] MEDS: Cyanocobalamin (Vitamin B-12) 1,000 MCG TABLET 1000 MCG PO (09:05)
--- NOTE | 2022-07-07 09:12 | MHC.CM.PN ---
PATIENT IS DC HOME - SELF CARE. RN AWARE OF PLAN
[2022-07-07] MEDS: methylPREDNISolone Sod Succ 40 MG/ML VIAL IVPUSH (11:00)
[2022-07-07 11:17] VITALS: RESP 18; O2SAT 93
[2022-07-07 15:00] VITALS: BP 114/69; PULSE 71; RESP 18; TEMP 36.2; O2SAT 93
[2022-07-07 15:09] VITALS: PULSE 68; RESP 18; O2SAT 93
== END 2022-07-07 18:39 | disposition home or self-care (01) | DRG 193 ==
LOC: HO.ED 07-03 00:55 → HO.EDOVER 07-03 01:42 → HO.S3 07-03 15:08
PROVIDERS: Physician Assistant; Admitting Provider Student in an Organized Health Care Education/Training Program; Emergency Provider Emergency Medicine; PCP Internal Medicine; Visit Provider Internal Medicine
DX: J12.3 Human metapneumovirus pneumonia (principal); J96.01 Acute respiratory failure with hypoxia; J45.41 Moderate persistent asthma with (acute) exacerbation; Z68.43 Body mass index [BMI] 50.0-59.9, adult; E66.01 Morbid (severe) obesity due to excess calories; K21.9 Gastro-esophageal reflux disease without esophagitis; E03.9 Hypothyroidism, unspecified; Z20.822 Contact with and (suspected) exposure to COVID-19; Z88.1 Allergy status to other antibiotic agents; Z88.2 Allergy status to sulfonamides; Z88.8 Allergy status to other drugs, medicaments and biological substances; Z79.890 Hormone replacement therapy; Z79.899 Other long term (current) drug therapy
CPT/HCPCS: 36415; 71045; 80048; 80053; 83605; 83880; 84145; 84484; 85025; 85027; 85379; 87040; 87633; 87635; 87640; 87641; 93005; 94640; 99285; J0456; J0696; J1650; J2920; J2930; J3370; J3475

== ENCOUNTER 2022-12-09 12:28 | Emergency (ER) | payer OTHER, SELFPAY ==
--- NOTE | ~2022-12-09 | CT_ITS ---
EXAMINATION: CT ABDOMEN AND PELVIS WITH CONTRAST CLINICAL INFORMATION: Abdominal pain, history of obstruction. COMPARISON: None available. TECHNIQUE: Multidetector volumetric images were obtained from the superior aspect of the liver through the pubic symphysis following administration 85 mL of Omnipaque 350 intravenous contrast. Sagittal and coronal reformatted images were obtained on the technologist's workstation. Oral contrast: No This CT examination was performed using dose optimization techniques as appropriate, variously including the following: *Automated exposure control *Adjustment of mA and/or kV according to patient size (this includes techniques or standardized protocols for targeted exams where dose is matched to indication/reason for exam; i.e. extremities or head) *Use of iterative reconstruction technique DLP: 1242 mGy-cm FINDINGS: LUNG BASES: The visualized lung bases are unremarkable. LIVER, GALLBLADDER, AND BILIARY TREE: No significant hepatic abnormality. Status post cholecystectomy. No significant biliary ductal dilatation. PANCREAS: Mild atrophy most pronounced in the head. No pancreatic ductal dilatation or peripancreatic abnormality. SPLEEN: Unremarkable. ADRENAL GLANDS: Unremarkable. KIDNEYS AND URETERS: The kidneys are normal in size, shape, and attenuation. No hydronephrosis, hydroureter, or calculi seen. No perinephric stranding. BLADDER: Unremarkable. GASTROINTESTINAL TRACT: The stomach is unremarkable. The appendix is not confidently identified. No evidence for acute appendicitis. The proximal colon is unremarkable. Mild mural thickening and pericolonic infiltrative changes are seen from the level the splenic flexure distally to the sigmoid colon. The rectum is unremarkable. ABDOMINAL WALL: No significant hernia is appreciated. LYMPH NODES: No lymphadenopathy. VASCULAR: Unremarkable. PELVIC VISCERA: Unremarkable. OSSEOUS STRUCTURES: Unremarkable. CT/CT abdomen pelvis w IV con IMPRESSION: 1. Descending/sigmoid colon findings most consistent with acute infectious/inflammatory colitis. No associated obstruction. No evidence for perforation or abscess formation.
[2022-12-09 12:40] VITALS: BP 145/89; BP 153/96; PULSE 76; PULSE 92; RESP 22; TEMP 36.4; O2SAT 96; O2SAT 98; BMI 48.5
--- NOTE | 2022-12-09 12:51 | PC.NURSE ---
pt hx of bowel blockages and panic attacks. per pt last BM was Thursday, last time pt ate was thursday. Pt reports that the last bowel obstruction was 2020 where she was admitted to [facility].
[2022-12-09 13:12] LABS: MANUAL DIFF FLAG NO
[2022-12-09 13:14] LABS: Basophils Percent Auto 0.3 % (0-2); Eosinophils Percent Auto 0.2 % (0-4); Hematocrit 40.8 % (37.0-47.0); Hemoglobin 13.9 g/dl (12.0-16.0); Imm Gran Abs Auto 0.03 X10*3/uL (0.00-0.03); Imm Gran Pct Auto 0.3 % (0.0-0.4); Lymphocytes Absolute Auto 1.1 X10*3/uL (1.2-4.9); Lymphocytes Percent Auto 9.5 % (20-40); Mean Corpuscular HGB Conc 34.1 g/dl (31.0-35.0); Mean Corpuscular Hemoglobin 29.5 pg (27.0-33.0); Mean Corpuscular Volume 86.6 fL (80.0-98.0); Mean Platelet Volume 10.2 fL (9.4-12.3); Monocytes Absolute Auto 0.7 X10*3/uL (0.1-1.2); Monocytes Percent Auto 6.1 % (2-11); Neutrophils Absolute Auto 9.8 x10*3/uL (2.0-8.3); Neutrophils Percent Auto 83.6 % (45-73); Platelet Count 243 X10*3/uL (160-400); Red Blood Count 4.71 X10*6/uL (4.20-5.50); Red Cell Distribution Width 13.1 % (11.0-16.0); White Blood Count 11.7 X10*3/uL (4.8-10.8)
[2022-12-09 13:32] LABS: COVID-19 Test Negative (Negative); IDNOW Serial# 55D5AD1C
[2022-12-09 13:33] LABS: Alanine Aminotransferase 13 U/L (0-31); Albumin Level 3.7 g/dL (3.5-5.0); Alkaline Phosphatase 76 U/L (39-117); Anion Gap 16 (12-20); Aspartate Amino Transferase 9 U/L (5-31); Bilirubin Total 1.1 mg/dL (0.0-1.0); Blood Urea Nitrogen 14 mg/dL (9-16); Carbon Dioxide 21 mmol/L (22-29); Chloride 106 mmol/L (96-108); Creatinine Clr Calc Pharmacy 81.9; Estimated Glomerular Filt Rate 59; Glucose Random 102 mg/dL (60-115); Magnesium 1.9 mg/dL (1.6-2.6); Potassium 4.2 mmol/L (3.3-5.1); Sodium 139 mmol/L (135-145); Total Protein 6.7 g/dL (6.5-8.0)
--- NOTE | 2022-12-09 14:49 | ED_ITS ---
HPI - Abdominal Pain General Chief Complaint: Abdominal Pain Stated Complaint: lower abdominal pain, nausea , vomiting Time Seen by Provider: 12/09/22 14:21 Source: patient Mode of arrival: ambulatory Limitations: no limitations History of Present Illness HPI narrative: 52-year-old female history of small-bowel obstructions in the past history of asthma with history of respiratory failure influenza as well as anxiety hypothyroidism migraines acid reflux history of appendectomy cholecystectomy eye surgery and wrist who presents emergency room complaining of abdominal pain. She thought that his ass resection took a pill for that did not improve anything just that may be gas which did improve with medications the thought was constipation and takes medication did not improve. Patient denies falls or injuries denies chest pain or cough. She states she has worsening abdominal pain MD elicited complaint: abdominal pain Pertinent past history: constipation Related Data Home Medications Medication Instructions Recorded Confirmed albuterol sulfate 90 mcg/actuation 2 puff inhalation Q6H PRN wheezing 06/01/22 07/03/22 aerosol inhaler bupropion HCl (smoking deter) 150 1 tab PO BID 06/01/22 07/03/22 mg tablet,12 hr sustained-release(smoking deterrent) cyanocobalamin (vitamin B-12) 1 tab PO DAILY 06/01/22 07/03/22 1,000 mcg tablet levothyroxine 75 mcg tablet 1 tab PO DAILY@0600 06/01/22 07/03/22 lorazepam 0.5 mg tablet 2 tab PO BEDTIME 06/01/22 07/03/22 mometasone-formoterol HFA 200 2 puff inhalation BID 06/01/22 07/03/22 mcg-5 mcg/actuation aerosol inhaler (Dulera) montelukast 10 mg tablet 1 tab PO BEDTIME 06/01/22 07/03/22 omeprazole 20 mg capsule,delayed 20 mg PO BID@0630,1630 06/01/22 07/03/22 release trihexyphenidyl 2 mg tablet 0.5 tab PO BID 06/01/22 07/03/22 verapamil 240 mg tablet,extended 1 tab PO BID 06/01/22 07/03/22 release ziprasidone HCl 80 mg capsule 1 cap PO BID 06/01/22 07/03/22 zolpidem 10 mg tablet 1 tab PO BEDTIME PRN insomnia 06/01/22 07/03/22 cetirizine 10 mg tablet (Zyrtec) 10 mg PO BEDTIME 07/03/22 07/03/22 diphenhydramine HCl 25 mg capsule 25 mg PO BEDTIME 07/03/22 07/03/22 (Benadryl) lorazepam 0.5 mg tablet 1 tab PO DAILY PRN Anxiety 07/03/22 07/03/22 melatonin 5 mg tablet 5 mg PO BEDTIME 07/03/22 07/03/22 Previous Rx's Medication Instructions Recorded albuterol sulfate 1.25 mg/3 mL 1.25 mg (3 mL) inhalation Q4-6H 06/06/22 solution for nebulization PRN shortness of breath or wheezing #75 mL prednisone 20 mg tablet 40 mg PO DAILY #10 tabs 07/07/22 ondansetron 4 mg disintegrating 4 mg PO Q6H #14 tabs 12/09/22 tablet Allergies Allergy/AdvReac Type Severity Reaction Status Date / Time shellfish derived Allergy Severe ANAPHYLAXIS Verified 06/03/22 19:53 tree nut [Tree Nut] Allergy Severe ANAPHYLAXIS Verified 06/03/22 19:53 Sulfa (Sulfonamide Allergy Unknown UNKNOWN Verified 06/03/22 19:53 Antibiotics) cefuroxime [From Ceftin] Allergy Unknown Verified 07/03/22 17:22 clarithromycin Allergy Diarrhea Verified 07/03/22 17:23 clindamycin Allergy Rash Verified 07/03/22 17:23 lamotrigine [From Lamictal] Allergy Unknown Verified 07/03/22 17:24 levofloxacin Allergy Confusion Verified 07/03/22 17:22 sumatriptan [From Imitrex] Allergy Unknown Verified 07/03/22 17:27 Review of Systems Review of Systems Review of systems: General: Patient denies any fever chills recent illness or falls Musculoskeletal: Denies back pain or body aches or other injuries HEENT: denies headache, runny nose, ear pain Respiratory: denies shortness of breath, cough Cardiovascular: no chest pain or palpitations : denies dysuria, frequency Abdomen: nausea no vomiting abdominal pain Extremities: no swelling, no pain Skin: no diaphoresis Yes all other systems are reviewed and are negative PMFSH Past Medical History Medical History Acid reflux Asthma exacerbation History of asthma Hypothyroidism Migraine headache Surgical History History of appendectomy History of cholecystectomy History of eye surgery History of surgery on wrist Family History Family History Other No family history of coronary artery disease Social History Social History Household Members: Family Household Members Other:: 4 Housing: Apartment Do you presently have visiting nurse or other home services: No Patient Tobacco Use Status: Never used Tobacco Smoked in Last 30 Days: No e-Cigarette/Vaping Use: Never Used Use of substances other than those prescribed or required for medical reasons: No Advance Directives: Yes Advance Directives on File: Yes Advance Directives Date on File: 07/08/22 service: No Current occupational status: disabled Physical Exam ED Vital Signs: Vital Signs - 24 hr 12/09/22 12:40 12/09/22 15:48 12/09/22 17:53 Temperature 97.6 F 99.1 F Pulse Rate 76 79 Respiratory Rate 22 H 16 16 Blood Pressure 145/89 H 102/73 Pulse Oximetry 98 93 Oxygen Delivery Method Room Air Room Air BMI result Body Mass Index 48.5 General: Well-appearing well-nourished in no signs of distress HEENT: Normocephalic atraumatic Neck: No signs of JVD, no masses no tenderness or lymphadenopathy Cardiovascular: Regular rate and rhythm Respiratory: Clear to auscultation bilaterally Abdomen: Soft nontender no masses Extremities: Normal pedal pulses no signs of edema Skin: Dry warm no rashes Back: No tenderness full ROM Medical Decision Making Medical Decision Making [facility] Narrative: Patient is patient has check labs labs are all normal prior to seeing the patient the patient has severe pain so give morphine and fluids and Zofran. Patient is feeling much better CT is not showing acute I will send the patient with PCP follow-up. Differential Diagnosis Differential Diagnoses: The differential diagnosis associated with the presentation includes Acute bowel obstruction constipation acute on chronic abdominal dehydration acid reflux cholecystitis pain anxiety hepatitis Admission/Observation Consideration of admission/observation: Escalation of care including admission/observation considered Consult Healthcare Provider Management of the patient was discussed with: Hospitalist Lab Data [facility] Lab Attestation statement: I reviewed the patient's lab results. 12/09/22 13:06 12/09/22 13:06 Labs: Lab Results 12/09/22 12/09/22 12/09/22 Range/Units 13:06 13:06 13:06 WBC 11.7 H (4.8-10.8) X10*3/uL RBC 4.71 (4.20-5.50) X10*6/uL Hgb 13.9 (12.0-16.0) g/dl Hct 40.8 (37.0-47.0) % MCV 86.6 (80.0-98.0) fL MCH 29.5 (27.0-33.0) pg MCHC 34.1 (31.0-35.0) g/dl RDW 13.1 (11.0-16.0) % Plt Count 243 (160-400) X10*3/uL MPV 10.2 (9.4-12.3) fL Immature Gran % (Auto) 0.3 (0.0-0.4) % Neut % (Auto) 83.6 H (45-73) % Lymph % (Auto) 9.5 L (20-40) % [place]gett % (Auto) 6.1 (2-11) % Eos % (Auto) 0.2 (0-4) % Baso % (Auto) 0.3 (0-2) % Lymph # (Auto) 1.1 L (1.2-4.9) X10*3/uL [place]gett # (Auto) 0.7 (0.1-1.2) X10*3/uL Eos # (Auto) 0.0 (0.0-0.4) X10*3/uL Baso # (Auto) 0.0 (0.0-0.2) X10*3/uL Abs Immat Gran (auto) 0.03 (0.00-0.03) X10*3/uL Absolute Neuts (auto) 9.8 H (2.0-8.3) x10*3/uL Absolute Nucleated RBC 0.000 (0.0-0.012) X10*3/uL Nucleated RBC % (auto) 0.0 (0.0-0.2) /100WBC Sodium 139 (135-145) mmol/L Potassium 4.2 (3.3-5.1) mmol/L Chloride 106 (96-108) mmol/L Carbon Dioxide 21 L (22-29) mmol/L Anion Gap 16 (12-20) BUN 14 (9-16) mg/dL Creatinine 0.98 (0.5-1.4) mg/dL Estim Creat Clear Calc 81.9 Estimated GFR 59 Random Glucose 102 (60-115) mg/dL Calcium 10.0 D (8.4-10.2) mg/dL Magnesium 1.9 (1.6-2.6) mg/dL Total Bilirubin 1.1 H (0.0-1.0) mg/dL AST 9 (5-31) U/L ALT 13 (0-31) U/L Alkaline Phosphatase 76 (39-117) U/L Total Protein 6.7 (6.5-8.0) g/dL Albumin 3.7 (3.5-5.0) g/dL COVID-19 (STEPHEN) Negative (Negative) COVID-19 Clin Com See Note Independent Interpretation I performed an independent interpretation of an: CT Scan Radiology Impression Discussion of test interpretation with radiology: I have reviewed the radiologist's reading. Radiologist Impression: CT External Record Review External record reviewed: Inpatient record and Outpatient record Medications Administered Discontinued Medications Generic Name Dose Route Start Last Admin Trade Name Freq PRN Reason Stop Dose Admin Sodium Chloride 1,000 mls @ 999 mls/hr 12/09/22 15:00 12/09/22 17:08 Ns IV 12/09/22 16:00 Infused .Q1H1M ZULY Infusion Iohexol 85 ml 12/09/22 16:24 12/09/22 16:24 Iohexol 350 Mg/Ml 75 Ml Infus..Btl IV 12/09/22 16:25 85 ml ONCE ONE Administration Morphine Sulfate 4 mg 12/09/22 14:48 12/09/22 15:48 Morphine Sulfate 4 Mg/Ml Cartridge IVPUSH 12/09/22 14:49 4 mg ONCE ONE Administration Protocol Ondansetron HCl 4 mg 12/09/22 14:48 12/09/22 15:45 Ondansetron Hcl 4 Mg/2 Ml Vial IVPUSH 12/09/22 14:49 4 mg ONCE ONE Administration Discharge Plan Discharge Clinical Impression: Abdominal pain, Constipation Patient Disposition: Home, Self-Care Instructions: Constipation (DC), Abdominal Pain (ED) Additional Instructions: You were seen today for abdominal pain. You had labs and a CT scan done that showed nonspecific Colitis otherwise normal labs Please call follow-up with . If you have any other concerns please do not hesitate to come back to emergency department. Prescriptions: New ondansetron 4 mg tablet,disintegrating 4 mg PO Q6H Qty: 14 0RF No Action ziprasidone HCl 80 mg capsule 1 cap PO BID cyanocobalamin (vitamin B-12) 1,000 mcg tablet 1 tab PO DAILY levothyroxine 75 mcg tablet 1 tab PO DAILY@0600 lorazepam 0.5 mg tablet 2 tab PO BEDTIME omeprazole 20 mg capsule,delayed release(DR/EC) 20 mg PO BID@0630,1630 verapamil 240 mg tablet extended release 1 tab PO BID montelukast 10 mg tablet 1 tab PO BEDTIME zolpidem 10 mg tablet 1 tab PO BEDTIME PRN (Reason: insomnia) albuterol sulfate 90 mcg/actuation HFA aerosol inhaler 2 puff INHALATION Q6H PRN (Reason: wheezing) trihexyphenidyl 2 mg tablet 0.5 tab PO BID Dulera 200-5 mcg/actuation HFA aerosol inhaler 2 puff INHALATION BID bupropion HCl (smoking deter) 150 mg tablet extended release 12 hr 1 tab PO BID albuterol sulfate 1.25 mg/3 mL solution for nebulization 1.25 mg inhalation Q4-6H PRN (Reason: shortness of breath or wheezing) Qty: 75 0RF cetirizine [Zyrtec] 10 mg Tablet 10 mg PO BEDTIME lorazepam 0.5 mg tablet 1 tab PO DAILY PRN (Reason: Anxiety) diphenhydramine HCl [Benadryl] 25 mg Capsule 25 mg PO BEDTIME melatonin 5 mg Tablet 5 mg PO BEDTIME prednisone 20 mg tablet 40 mg PO DAILY Qty: 10 0RF
[2022-12-09] MEDS: ondansetron HCL 4 MG/2 ML VIAL IVPUSH (15:45)
[2022-12-09 15:48] VITALS: RESP 16
[2022-12-09] MEDS: Morphine Sulfate 4 MG/ML CARTRIDGE IVPUSH (15:48)
[2022-12-09] MEDS: 0.9 % Sodium Chloride 1,000 ML 999 ML IV (15:48)
[2022-12-09] MEDS: iohexoL 350 MG/ML 75 ML INFUS..BTL 85 ML IV (16:24)
[2022-12-09 17:53] VITALS: BP 102/73; PULSE 79; RESP 16; TEMP 37.3; O2SAT 93
--- NOTE | 2022-12-09 18:22 | PC.NURSE ---
pt a&o x4, pleasant, calm, and cooperative. pt is slightly anxious but sts watching tv is helping distract her. purewick placed for pt comfort and to obtain ua. pt is incontinent but sts that it is normal for her. pt lives at home with family. IV placed, labs obtained, fluids given, and pt medicated per mar. awaiting CT scan results and ua. vss, wctm
[2022-12-09 19:47] VITALS: BP 104/74; PULSE 72; RESP 16; TEMP 36.6; O2SAT 98
== END 2022-12-09 19:58 | disposition home or self-care (01) ==
PROVIDERS: Physician Assistant Medical; Emergency Provider Student in an Organized Health Care Education/Training Program; PCP Internal Medicine
DX: K59.00 Constipation, unspecified (principal); R10.30 Lower abdominal pain, unspecified; Z20.822 Contact with and (suspected) exposure to COVID-19; Z79.899 Other long term (current) drug therapy
CPT/HCPCS: 74177; 80053; 83735; 85025; 87635; 96361; 96374; 96375; 99284; J2270; J2405; Q9967

== ENCOUNTER 2023-05-14 20:22 | Emergency (ER) | payer OTHER, SELFPAY ==
--- NOTE | ~2023-05-14 | CT_ITS ---
EXAMINATION: CT head/brain wo IV con CLINICAL INFORMATION: Reason for Exam dizziness multiple months, tinnitus COMPARISON: None. TECHNIQUE: Contiguous axial imaging was performed from the skull base to vertex without intravenous contrast. Sagittal and coronal reformatted images were obtained. This CT examination was performed using dose optimization techniques as appropriate, variously including the following: * Automated exposure control * Adjustment of mA and/or kV according to patient size (this includes techniques or standardized protocols for targeted exams where dose is matched to indication/reason for exam; i.e. extremities or head) Use of iterative reconstruction technique DLP: 595.08 mGy-cm FINDINGS: No acute osseous or soft tissue abnormality. The mastoid air cells and visualized portions of the paranasal sinuses are well aerated. There is no evidence of acute intracranial hemorrhage or territorial infarction. No abnormal mass effect or midline shift is seen. Martínez to white matter differentiation is well preserved. No extra-axial fluid collections are identified. No hydrocephalus. No significant volume loss. There is no abnormal attenuation within the brain parenchyma. CT/CT head/brain wo IV con IMPRESSION: No acute intracranial abnormality including hemorrhage, mass effect, hydrocephalus, or acute territorial edematous infarction.
[2023-05-14 20:26] VITALS: BP 134/77; PULSE 81; RESP 18; TEMP 36.6; O2SAT 95; BMI 45.7
--- NOTE | 2023-05-14 20:27 | ED_ITS ---
HPI - General Adult General Chief complaint: General Medical Stated complaint: dizzy, loosing balance Time Seen by Provider: 05/15/23 01:57 Source: patient Mode of arrival: ambulatory Limitations: no limitations History of Present Illness HPI narrative: Patient comes to the emergency room complaining of several months of feeling off balance, ringing in the ears. Patient walks using a walker at baseline. Patient states that sometimes she has unsteadiness in her feet and cannot use her walker because he does not go through her doors at home. Patient has had close calls to falling. Patient states that for the last couple of days, the ringing in the ears has been getting worse. No recent falls. Patient went to urgent care today and was advised to come to the emergency room. At this time, patient denies any headache, no chest pain, no ear pain, no recent URIs or UTIs. Related Data Home Medications Medication Instructions Recorded Confirmed albuterol sulfate 90 mcg/actuation 2 puff inhalation Q6H PRN wheezing 06/01/22 07/03/22 aerosol inhaler bupropion HCl (smoking deter) 150 1 tab PO BID 06/01/22 07/03/22 mg tablet,12 hr sustained-release(smoking deterrent) cyanocobalamin (vitamin B-12) 1 tab PO DAILY 06/01/22 07/03/22 1,000 mcg tablet levothyroxine 75 mcg tablet 1 tab PO DAILY@0600 06/01/22 07/03/22 lorazepam 0.5 mg tablet 2 tab PO BEDTIME 06/01/22 07/03/22 mometasone-formoterol HFA 200 2 puff inhalation BID 06/01/22 07/03/22 mcg-5 mcg/actuation aerosol inhaler (Dulera) montelukast 10 mg tablet 1 tab PO BEDTIME 06/01/22 07/03/22 omeprazole 20 mg capsule,delayed 20 mg PO BID@0630,1630 06/01/22 07/03/22 release trihexyphenidyl 2 mg tablet 0.5 tab PO BID 06/01/22 07/03/22 verapamil 240 mg tablet,extended 1 tab PO BID 06/01/22 07/03/22 release ziprasidone HCl 80 mg capsule 1 cap PO BID 06/01/22 07/03/22 zolpidem 10 mg tablet 1 tab PO BEDTIME PRN insomnia 06/01/22 07/03/22 cetirizine 10 mg tablet (Zyrtec) 10 mg PO BEDTIME 07/03/22 07/03/22 diphenhydramine HCl 25 mg capsule 25 mg PO BEDTIME 07/03/22 07/03/22 (Benadryl) lorazepam 0.5 mg tablet 1 tab PO DAILY PRN Anxiety 07/03/22 07/03/22 melatonin 5 mg tablet 5 mg PO BEDTIME 07/03/22 07/03/22 Previous Rx's Medication Instructions Recorded albuterol sulfate 1.25 mg/3 mL 1.25 mg (3 mL) inhalation Q4-6H 06/06/22 solution for nebulization PRN shortness of breath or wheezing #75 mL prednisone 20 mg tablet 40 mg (2 x 20 mg) PO DAILY #10 tabs 07/07/22 ondansetron 4 mg disintegrating 4 mg PO Q6H #14 tabs 12/09/22 tablet meclizine 25 mg tablet 25 mg PO TID #15 tabs 05/15/23 Allergies Allergy/AdvReac Type Severity Reaction Status Date / Time shellfish derived Allergy Severe ANAPHYLAXIS Verified 05/14/23 20:30 tree nut [Tree Nut] Allergy Severe ANAPHYLAXIS Verified 05/14/23 20:30 Sulfa (Sulfonamide Allergy Unknown UNKNOWN Verified 05/14/23 20:30 Antibiotics) cefuroxime [From Ceftin] Allergy Unknown Verified 05/14/23 20:30 clarithromycin Allergy Diarrhea Verified 05/14/23 20:30 clindamycin Allergy Rash Verified 05/14/23 20:30 lamotrigine [From Lamictal] Allergy Unknown Verified 05/14/23 20:30 levofloxacin Allergy Confusion Verified 05/14/23 20:30 sumatriptan [From Imitrex] Allergy Unknown Verified 05/14/23 20:30 Review of Systems 2 Review of Systems: Constitutional : No Weight loss, No Fever, No Chills, No Night Sweats, No Fatigue, No Malaise ENT/Mouth : No Hearing loss, No Ear Pain, No Nasal Congestion, No Sinus Pain, No Hoarseness, No sore throat, No Rhinorrhea, No Swallowing Difficulty Eyes: No Eye Pain, No Swelling, No Redness, No Foreign Body, No Discharge, No Vision Changes Cardiovascular : No Chest Pain, No SOB, No Dyspnea on Exertion, No Orthopnea, No Edema, No Palpitations Respiratory : No Cough, No Sputum, No Wheezing, No Smoke Exposure, No Dyspnea Gastrointestinal : No Nausea, No Vomiting, No Diarrhea, No Constipation, No abdominal Pain, No Hematochezia, No Melena Genitourinary : no irregular bleeding, No Dysuria, No Urinary Frequency, No Hematuria, No Urinary Incontinence, No Urgency, No Flank Pain, No Urinary Flow Changes, No Hesitancy Musculoskeletal : No joint pain, No Myalgias, No Joint Swelling Skin : No Skin Lesions, No rash Neuro : No Weakness, No Numbness, No Paresthesias, No Loss of Consciousness, no headache, complaining of unsteadiness, ringing of the ear Psych : No Anxiety/Panic, No Depression, No SI/HI/AH/VH, No Social Issues, Heme/Lymph: No Bruising, No Bleeding,No Lymphadenopathy Endocrine : No Polyuria, No Polydipsia, No Temperature Intolerance PMFSH Past Medical History Medical History Acid reflux Asthma exacerbation History of asthma Hypothyroidism Migraine headache Surgical History History of appendectomy History of cholecystectomy History of eye surgery History of surgery on wrist Family History Family History Other No family history of coronary artery disease Social History Social History Household Members: Family Household Members Other:: 4 Housing: Apartment Do you presently have visiting nurse or other home services: No Comment: pt rings appropriately Patient Tobacco Use Status: Never used Tobacco e-Cigarette/Vaping Use: Never Used Advance Directives: Yes Advance Directives on File: Yes Advance Directives Date on File: 07/08/22 service: No Current occupational status: disabled Physical Exam ED Vital Signs: Vital Signs - 24 hr 05/14/23 20:26 05/15/23 00:00 Temperature 97.9 F 98.3 F Pulse Rate 81 68 Respiratory Rate 18 16 Blood Pressure 134/77 102/61 Pulse Oximetry 95 93 Oxygen Delivery Method Room Air Room Air BMI result Body Mass Index 45.7 Const Other: Appearance: Alert. Oriented X3. No acute distress. Eyes: Pupils equal, round and reactive to light. ENT: Pharynx normal. Neck: Normal inspection. Neck supple. No lymph nodes noted. No crepitus CVS: Normal heart rate and rhythm. Pulses normal. Normal S1 and S2 Respiratory: No respiratory distress. Breath sounds normal. No Wheezing. No rales Abdomen: Soft and nontender. No rigidity. No distention. Skin: Skin warm and dry. Normal skin color. Normal skin turgor. Extremities: No lower extremity edema. No Lacerations. No Rash Neuro: Oriented X 3. No motor deficit. No sensory deficit. Moving all extremities. No slurred speech. CN 2 through 12 grossly intact Psych: calm, cooperative, normal affect Course Course Course Narrative: This is a rapid medical exam: Additional HPI, ROS, PE not included below will be deferred to primary provider. Patient is a 52-year-old female with history of asthma, hypothyroid, migraines, acid reflux presenting to the ED with complaint of memory loss, shakiness, dizziness, feels off balance for a while worsening over the past week. Patient states a few months but states her daughter feels symptoms have been present for longer. Also complains of bilateral tinnitus which she used to be able to distract herself from with a fan, but that has not been helping recently. Plan: EKG, labs, UA Medical Decision Making Medical Decision Making [facility] Narrative: -my interpretation of labs: Normal hematology chemistry within normal limits, troponin negative -meant the patient head CT: No intracranial bleed or obvious brain mass -patient's symptoms are chronic. Discussed with the patient that she needs to follow up with ENT and her primary care physician Differential Diagnosis Differential Diagnoses: The differential diagnosis associated with the presentation includes (Meniere's disease, BPPV, vestibular neuritis, labyrinthitis, brain mass) Admission/Observation Consideration of admission/observation: Escalation of care including admission/observation considered (As above, admission was considered on arrival.) Lab Data [facility] Lab Attestation statement: I reviewed the patient's lab results. 05/14/23 20:49 05/14/23 20:49 Labs: Lab Results 05/14/23 05/15/23 Range/Units 20:49 01:10 WBC 8.1 (4.8-10.8) X10*3/uL RBC 4.55 (4.20-5.50) X10*6/uL Hgb 13.5 (12.0-16.0) g/dl Hct 41.4 (37.0-47.0) % MCV 91.0 (80.0-98.0) fL MCH 29.7 (27.0-33.0) pg MCHC 32.6 (31.0-35.0) g/dl RDW 13.8 (11.0-16.0) % Plt Count 235 (160-400) X10*3/uL MPV 10.5 (9.4-12.3) fL Immature Gran % (Auto) 0.4 (0.0-0.4) % Neut % (Auto) 68.4 (45-73) % Lymph % (Auto) 21.7 (20-40) % [place] % (Auto) 7.3 (2-11) % Eos % (Auto) 1.6 (0-4) % Baso % (Auto) 0.6 (0-2) % Lymph # (Auto) 1.8 (1.2-4.9) X10*3/uL [place] # (Auto) 0.6 (0.1-1.2) X10*3/uL Eos # (Auto) 0.1 (0.0-0.4) X10*3/uL Baso # (Auto) 0.1 (0.0-0.2) X10*3/uL Abs Immat Gran (auto) 0.03 (0.00-0.03) X10*3/uL Absolute Neuts (auto) 5.5 (2.0-8.3) x10*3/uL Absolute Nucleated RBC 0.000 (0.0-0.012) X10*3/uL Nucleated RBC % (auto) 0.0 (0.0-0.2) /100WBC Sodium 142 (135-145) mmol/L Potassium 3.8 (3.3-5.1) mmol/L Chloride 106 (96-108) mmol/L Carbon Dioxide 26 (22-29) mmol/L Anion Gap 14 (12-20) BUN 14 (9-16) mg/dL Creatinine 1.02 (0.5-1.4) mg/dL Estim Creat Clear Calc 75.9 Estimated GFR 57 POC Glucose 91 (60-115) mg/dL Random Glucose 79 (60-115) mg/dL Calcium 9.4 (8.4-10.2) mg/dL Influenza Type A (PCR) NEGATIVE (Negative) Influenza Type B (PCR) NEGATIVE (Negative) RSV RNA Qual (PCR) NEGATIVE (Negative) SARS-CoV-2 RNA (RT-PCR) NEGATIVE (Negative) Independent Interpretation I performed an independent interpretation of an: CT Scan Radiology Impression Discussion of test interpretation with radiology: I have reviewed the radiologist's reading. Radiologist Impression: FINDINGS: No acute osseous or soft tissue abnormality. The mastoid air cells and visualized portions of the paranasal sinuses are well aerated. There is no evidence of acute intracranial hemorrhage or territorial infarction. No abnormal mass effect or midline shift is seen. Martínez to white matter differentiation is well preserved. No extra-axial fluid collections are identified. No hydrocephalus. No significant volume loss. There is no abnormal attenuation within the brain parenchyma. CT/CT head/brain wo IV con IMPRESSION: No acute intracranial abnormality including hemorrhage, mass effect, hydrocephalus, or acute territorial edematous infarction. Critical Care Time Critical Care Time Critical Care Time: Yes Total Critical Care Time: 30 Attestation: I have personally provided critical care time. Time includes review of lab data, radiology results, discussion with consultants, and monitoring for potential decompensation. Intervention performed as documented. Discharge Plan Discharge Clinical Impression: Vestibular neuritis Patient Disposition: Home, Self-Care Instructions: Dizziness (ED) Additional Instructions: Please follow-up with your primary care physician tomorrow. You may need a referral to the ears Nose and Throat doctor. If you have any worsening or new symptoms, please return to the emergency room or call 911 Prescriptions: New meclizine 25 mg tablet 25 mg PO TID Qty: 15 1RF No Action ziprasidone HCl 80 mg capsule 1 cap PO BID cyanocobalamin (vitamin B-12) 1,000 mcg tablet 1 tab PO DAILY levothyroxine 75 mcg tablet 1 tab PO DAILY@0600 lorazepam 0.5 mg tablet 2 tab PO BEDTIME omeprazole 20 mg capsule,delayed release(DR/EC) 20 mg PO BID@0630,1630 verapamil 240 mg tablet extended release 1 tab PO BID montelukast 10 mg tablet 1 tab PO BEDTIME zolpidem 10 mg tablet 1 tab PO BEDTIME PRN (Reason: insomnia) albuterol sulfate 90 mcg/actuation HFA aerosol inhaler 2 puff INHALATION Q6H PRN (Reason: wheezing) trihexyphenidyl 2 mg tablet 0.5 tab PO BID Dulera 200-5 mcg/actuation HFA aerosol inhaler 2 puff INHALATION BID bupropion HCl (smoking deter) 150 mg tablet extended release 12 hr 1 tab PO BID albuterol sulfate 1.25 mg/3 mL solution for nebulization 1.25 mg inhalation Q4-6H PRN (Reason: shortness of breath or wheezing) Qty: 75 0RF cetirizine [Zyrtec] 10 mg Tablet 10 mg PO BEDTIME lorazepam 0.5 mg tablet 1 tab PO DAILY PRN (Reason: Anxiety) diphenhydramine HCl [Benadryl] 25 mg Capsule 25 mg PO BEDTIME melatonin 5 mg Tablet 5 mg PO BEDTIME prednisone 20 mg tablet 40 mg PO DAILY Qty: 10 0RF ondansetron 4 mg tablet,disintegrating 4 mg PO Q6H Qty: 14 0RF
--- NOTE | 2023-05-14 20:31 | ECG_ITS ---
Test Reason : UPPER RESPIRATORY Blood Pressure : / mmHG Vent. Rate : 068 BPM Atrial Rate : 068 BPM P-R Int : 160 ms QRS Dur : 080 ms QT Int : 422 ms P-R-T Axes : 011 012 047 degrees QTc Int : 448 ms Normal sinus rhythm Normal ECG When compared with ECG of 03-JUL-2022 00:50, Nonspecific T wave abnormality, improved in Lateral leads QT has lengthened Referred By: Mariela Lozoya Electronically Signed By:Joshua Perez
[2023-05-14 20:56] LABS: MANUAL DIFF FLAG NO
[2023-05-14 20:57] LABS: Basophils Absolute Auto 0.1 X10*3/uL (0.0-0.2); Basophils Percent Auto 0.6 % (0-2); Eosinophils Absolute Auto 0.1 X10*3/uL (0.0-0.4); Eosinophils Percent Auto 1.6 % (0-4); Hematocrit 41.4 % (37.0-47.0); Hemoglobin 13.5 g/dl (12.0-16.0); Imm Gran Abs Auto 0.03 X10*3/uL (0.00-0.03); Imm Gran Pct Auto 0.4 % (0.0-0.4); Lymphocytes Absolute Auto 1.8 X10*3/uL (1.2-4.9); Lymphocytes Percent Auto 21.7 % (20-40); Mean Corpuscular HGB Conc 32.6 g/dl (31.0-35.0); Mean Corpuscular Hemoglobin 29.7 pg (27.0-33.0); Mean Platelet Volume 10.5 fL (9.4-12.3); Monocytes Absolute Auto 0.6 X10*3/uL (0.1-1.2); Monocytes Percent Auto 7.3 % (2-11); Neutrophils Absolute Auto 5.5 x10*3/uL (2.0-8.3); Neutrophils Percent Auto 68.4 % (45-73); Platelet Count 235 X10*3/uL (160-400); Red Blood Count 4.55 X10*6/uL (4.20-5.50); Red Cell Distribution Width 13.8 % (11.0-16.0); White Blood Count 8.1 X10*3/uL (4.8-10.8)
[2023-05-14 21:21] LABS: Anion Gap 14 (12-20); Blood Urea Nitrogen 14 mg/dL (9-16); Calcium 9.4 mg/dL (8.4-10.2); Carbon Dioxide 26 mmol/L (22-29); Chloride 106 mmol/L (96-108); Creatinine Clr Calc Pharmacy 75.9; Estimated Glomerular Filt Rate 57; Glucose Random 79 mg/dL (60-115); Potassium 3.8 mmol/L (3.3-5.1); Sodium 142 mmol/L (135-145)
[2023-05-14 21:41] LABS: Influenza A PCR NEGATIVE (Negative); Influenza B PCR NEGATIVE (Negative); Resp Syncy Virus RNA Qual PCR NEGATIVE (Negative); SARS COV2 PCR INHOUSE NEGATIVE (Negative)
[2023-05-15] VITALS: BP 102/61; PULSE 68; RESP 16; TEMP 36.8; O2SAT 93
[2023-05-15 01:14] LABS: Glucose, Whole Blood 91 mg/dL (60-115)
[2023-05-15 01:30] VITALS: BP 105/60; PULSE 91; RESP 16; O2SAT 96
[2023-05-15 02:46] LABS: Troponin-I High Sensitivity < 2.7 ng/L (<3.5-17.0)
[2023-05-15 03:23] VITALS: BP 115/70; PULSE 68; RESP 16; O2SAT 97
== END 2023-05-15 03:25 | disposition home or self-care (01) ==
PROVIDERS: Registered Nurse Emergency; Emergency Provider Emergency Medicine; PCP Internal Medicine
DX: M79.2 Neuralgia and neuritis, unspecified (principal); H93.A3 Pulsatile tinnitus, bilateral; R06.02 Shortness of breath; R42 Dizziness and giddiness; R26.81 Unsteadiness on feet; Z20.822 Contact with and (suspected) exposure to COVID-19; Z20.828 Contact with and (suspected) exposure to other viral communicable diseases; Z79.899 Other long term (current) drug therapy
CPT/HCPCS: 0241U; 70450; 80048; 82947; 84484; 85025; 93005; 99284

== ENCOUNTER → 2023-05-14 20:31 | Outpatient (BNV) | payer OTHER, SELFPAY | PROVIDERS: Emergency Provider Emergency Medicine; PCP Internal Medicine; Visit Provider Internal Medicine Cardiovascular Disease | DX: R42 Dizziness and giddiness (principal) | CPT/HCPCS: 93010 ==

== ENCOUNTER 2023-07-12 22:34 | Emergency (ER) | payer OTHER, SELFPAY ==
[2023-07-12 22:46] VITALS: BP 136/83; PULSE 83; RESP 16; TEMP 36.6; O2SAT 94; BMI 45.0
--- NOTE | 2023-07-12 22:56 | ED_ITS ---
HPI - Female Genitourinary General Chief complaint: Urogenital-Female Stated complaint: UTI Time Seen by Provider: 07/12/23 22:52 Source: patient Mode of arrival: ambulatory Limitations: no limitations History of Present Illness HPI Narrative: 53-year-old female with a history of asthma, obesity presents the ER with complaints of urinary urgency, frequency, dysuria since Thursday. Patient denies any back pain, abdominal pain, fever, vomiting, vaginal discharge or rash. Related Data Home Medications Medication Instructions Recorded Confirmed albuterol sulfate 90 mcg/actuation 2 puff inhalation Q6H PRN wheezing 06/01/22 07/03/22 aerosol inhaler bupropion HCl (smoking deter) 150 1 tab PO BID 06/01/22 07/03/22 mg tablet,12 hr sustained-release(smoking deterrent) cyanocobalamin (vitamin B-12) 1 tab PO DAILY 06/01/22 07/03/22 1,000 mcg tablet levothyroxine 75 mcg tablet 1 tab PO DAILY@0600 06/01/22 07/03/22 lorazepam 0.5 mg tablet 2 tab PO BEDTIME 06/01/22 07/03/22 mometasone-formoterol HFA 200 2 puff inhalation BID 06/01/22 07/03/22 mcg-5 mcg/actuation aerosol inhaler (Dulera) montelukast 10 mg tablet 1 tab PO BEDTIME 06/01/22 07/03/22 omeprazole 20 mg capsule,delayed 20 mg PO BID@0630,1630 06/01/22 07/03/22 release trihexyphenidyl 2 mg tablet 0.5 tab PO BID 06/01/22 07/03/22 verapamil 240 mg tablet,extended 1 tab PO BID 06/01/22 07/03/22 release ziprasidone HCl 80 mg capsule 1 cap PO BID 06/01/22 07/03/22 zolpidem 10 mg tablet 1 tab PO BEDTIME PRN insomnia 06/01/22 07/03/22 cetirizine 10 mg tablet (Zyrtec) 10 mg PO BEDTIME 07/03/22 07/03/22 diphenhydramine HCl 25 mg capsule 25 mg PO BEDTIME 07/03/22 07/03/22 (Benadryl) lorazepam 0.5 mg tablet 1 tab PO DAILY PRN Anxiety 07/03/22 07/03/22 melatonin 5 mg tablet 5 mg PO BEDTIME 07/03/22 07/03/22 Previous Rx's Medication Instructions Recorded albuterol sulfate 1.25 mg/3 mL 1.25 mg (3 mL) inhalation Q4-6H 06/06/22 solution for nebulization PRN shortness of breath or wheezing #75 mL prednisone 20 mg tablet 40 mg (2 x 20 mg) PO DAILY #10 tabs 07/07/22 ondansetron 4 mg disintegrating 4 mg PO Q6H #14 tabs 12/09/22 tablet meclizine 25 mg tablet 25 mg PO TID #15 tabs 05/15/23 nitrofurantoin 100 mg PO Q12H 5 days #10 caps 07/12/23 monohydrate/macrocrystals 100 mg capsule (Macrobid) phenazopyridine 200 mg tablet 200 mg PO TID PRN pain 6 doses #10 07/12/23 (Pyridium) tabs Allergies Allergy/AdvReac Type Severity Reaction Status Date / Time shellfish derived Allergy Severe ANAPHYLAXIS Verified 07/12/23 22:44 tree nut [Tree Nut] Allergy Severe ANAPHYLAXIS Verified 07/12/23 22:44 Sulfa (Sulfonamide Allergy Unknown UNKNOWN Verified 07/12/23 22:44 Antibiotics) cefuroxime [From Ceftin] Allergy Unknown Verified 07/12/23 22:44 clarithromycin Allergy Diarrhea Verified 07/12/23 22:44 clindamycin Allergy Rash Verified 07/12/23 22:44 lamotrigine [From Lamictal] Allergy Unknown Verified 07/12/23 22:44 levofloxacin Allergy Confusion Verified 07/12/23 22:44 sumatriptan [From Imitrex] Allergy Unknown Verified 07/12/23 22:44 Review of Systems Review of Systems: Yes all other systems are reviewed and are negative Constitutional: Constitutional: Reports no additional constitutional complaints, Denies body ache(s), Denies chills, Denies fever(s), Denies hea dache(s) and Denies weakness Eyes: Eyes: Reports no additional eye complaints and Denies change in vision ENT: Reports system reviewed and no additional complaints, except as documented, Denies dizziness, Denies headache(s), Denies nasal congestion, Denies nasal discharge and Denies neck pain Cardiovascular: Cardiovascular: Reports no additional cardiovascular complaints, Denies chest pain, Denies leg edema and Denies dyspnea Respiratory: Respiratory: Reports no additional respiratory complaints, Denies cough and Denies dyspnea Gastrointestinal: Gastrointestinal: Reports no additional gastrointestinal complaints, Denies abdominal pain, Denies diarrhea, Denies nausea and Denies vomiting Genitourinary: Genitourinary: Reports no additional female genitourinary complaints, Reports dysuria, Denies pelvic pain, Denies flank pain, Denies urinary incontinence, Denies urinary hesitancy, Reports urinary urgency and Denies vaginal discharge Musculoskeletal: Musculoskeletal: Reports no additional musculoskeletal complaints, Denies back pain, Denies arthralgias, Denies joint swelling, Denies neck pain, Denies numbness and Denies tingling Integumentary/Breasts: Skin/Breast: Reports system reviewed and no additional complaints, except as docu and Denies rash Neurologic: Reports system reviewed and no additional complaints, except as documented, Denies Abnormal speech present, Denies dizziness, Denies headache(s), Denies numbness, Denies tingling and Denies weakness PMFSH Past Medical History Attestation statement: The following information was validated with the patient. Source: old records reviewed and nursing notes reviewed Medical History Acid reflux Migraine headache Hypothyroidism History of asthma Asthma exacerbation Surgical History History of eye surgery History of surgery on wrist History of appendectomy History of cholecystectomy Family History Family History Other No family history of coronary artery disease Social History Social History Household Members: Family Household Members Other:: 4 Housing: Apartment Do you presently have visiting nurse or other home services: No Comment: pt rings appropriately Patient Tobacco Use Status: Never used Tobacco e-Cigarette/Vaping Use: Never Used Advance Directives: Yes Advance Directives on File: Yes Advance Directives Date on File: 07/08/22 service: No Current occupational status: disabled Physical Exam Vital Signs: Vital Signs: Last Vital Signs Temp 98.1 F 07/12/23 23:31 Pulse 72 07/12/23 23:31 Resp 14 07/12/23 23:31 BP 123/80 07/12/23 23:31 Pulse Ox 92 07/12/23 23:31 O2 Del Method Room Air 07/12/23 23:31 BMI result Body Mass Index 45.0 Const: General: cooperative, healthy appearing, comfortable and no acute distress Orientation/consciousness: patient oriented x3 Limitations: no limitations HEENT: Head: Yes normal to inspection Ears: hearing grossly normal bilaterally General nose exam: Normal external nose present Face and sinus: Yes normal facial exam Mouth: Normal oral and palatal mucosa present Throat: Yes posterior oropharynx normal Eyes: General: appearance normal, both eyes and all related structures Pupils: Equal, round and reactive pupils present Neck: Neck: Yes normal visual inspection Chest: Chest palpation & inspection: normal inspection of the chest Resp: Effort & Inspection: normal respiratory effort Auscultation: clear to auscultation bilaterally Cardio: Rate: regular rate Rhythm: regular rhythm Peripheral pulses: Peripheral pulses 2+ throughout GI: Inspection: Yes normal to inspection Palpation (GI): Soft to palpation and nontender Auscultation: normal bowel sounds : General: Yes no CVA tenderness Back/Spine/Pelvis: Back: no CVA tenderness Thoracic/Lumbar Spine: thoracic and lumbar spine normal to inspection Skin: General skin exam: no rashes or lesions noted Neuro: General: patient oriented x3, no focal motor deficits and normal sensation to monofilament Cranial nerves: Yes Equal, round and reactive pupils present Cognition (Neuro): normal cognition Speech: No Abnormal speech present Gait exam (Neuro): Normal gait present Motor exam (neuro): 5/5 motor strength present throughout Extrem: General: Yes normal to inspection Course Course Course Narrative: UA is consistent with UTI. Patient will be discharged home with course of antibiotics and Pyridium as needed. Reviewed worrisome signs and symptoms of when to return to the emergency room. Comfortable plan for discharge home Medical Decision Making Medical Decision Making MDM Narrative: 53-year-old female with a history of asthma, obesity presents the ER with complaints of urinary urgency, frequency, dysuria since Thursday. Patient denies any back pain, abdominal pain, fever, vomiting, vaginal discharge or rash. No focal abdominal pain or CVA tenderness on exam. Will send UA Differential Diagnosis Differential Diagnoses: The differential diagnosis associated with the presentation includes UTI Low concern for pyelonephritis or renal colic Admission/Observation Consideration of admission/observation: Escalation of care including admission/observation considered Patient has a UTI. She is nontoxic appearing, afebrile, low suspicion for josé miguel lonephritis or renal colic warranting additional imaging and/or admission to the hospital with IV antibiotics Lab Data MDM Lab Attestation statement: I reviewed the patient's lab results. UA consistent with UTI Labs: Lab Results 07/12/23 Range/Units 23:29 Urine Color Dark Yellow Urine Appearance Turbid Urine pH 5.5 (5.0-9.0) Ur Specific [place] 1.025 (1.005-1.025) Urine Protein Trace (Neg-Trace) mg/dL Urine Glucose (UA) Negative (Negative) mg/dL Urine Ketones Trace (Negative) mg/dL Urine Blood Trace H (Negative) Urine Nitrite Negative (Negative) Ur Leukocyte Esterase Large (3+) H (Negative) Urine RBC 0-2 (0-2) /HPF Urine WBC >50 H (0-5) /HPF Ur Squamous Epith Cells 11-20 (0-2) /HPF Urine Bacteria None Seen (None Seen) Hyaline Casts 3-5 (0-2) /LPF Tests considered The following testing was considered but not selected: No focal abdominal pain or CVA tenderness to suggest need for CT abdomen and pelvis Discharge Plan Discharge Clinical Impression: Urinary tract infection Patient Disposition: Home, Self-Care Instructions: Urinary Tract Infection in Women (ED) Additional Instructions: Increase fluids, rest Follow-up with primary care doctor as needed Return for any worsening symptoms Prescriptions: New nitrofurantoin monohyd/m-cryst [Macrobid] 100 mg capsule 100 mg PO Q12H 5 Days Qty: 10 0RF Rx Instructions: must administer with a meal/food phenazopyridine [Pyridium] 200 mg tablet 200 mg PO TID PRN (Reason: pain) Qty: 10 0RF No Action ziprasidone HCl 80 mg capsule 1 cap PO BID cyanocobalamin (vitamin B-12) 1,000 mcg tablet 1 tab PO DAILY levothyroxine 75 mcg tablet 1 tab PO DAILY@0600 lorazepam 0.5 mg tablet 2 tab PO BEDTIME omeprazole 20 mg capsule,delayed release(DR/EC) 20 mg PO BID@0630,1630 verapamil 240 mg tablet extended release 1 tab PO BID montelukast 10 mg tablet 1 tab PO BEDTIME zolpidem 10 mg tablet 1 tab PO BEDTIME PRN (Reason: insomnia) albuterol sulfate 90 mcg/actuation HFA aerosol inhaler 2 puff INHALATION Q6H PRN (Reason: wheezing) trihexyphenidyl 2 mg tablet 0.5 tab PO BID Dulera 200-5 mcg/actuation HFA aerosol inhaler 2 puff INHALATION BID bupropion HCl (smoking deter) 150 mg tablet extended release 12 hr 1 tab PO BID albuterol sulfate 1.25 mg/3 mL solution for nebulization 1.25 mg inhalation Q4-6H PRN (Reason: shortness of breath or wheezing) Qty: 75 0RF cetirizine [Zyrtec] 10 mg Tablet 10 mg PO BEDTIME lorazepam 0.5 mg tablet 1 tab PO DAILY PRN (Reason: Anxiety) diphenhydramine HCl [Benadryl] 25 mg Capsule 25 mg PO BEDTIME melatonin 5 mg Tablet 5 mg PO BEDTIME prednisone 20 mg tablet 40 mg PO DAILY Qty: 10 0RF meclizine 25 mg tablet 25 mg PO TID Qty: 15 1RF ondansetron 4 mg tablet,disintegrating 4 mg PO Q6H Qty: 14 0RF
[2023-07-12 23:31] VITALS: BP 123/80; PULSE 72; RESP 14; TEMP 36.7; O2SAT 92
[2023-07-12 23:38] LABS: Appearance Urine Turbid; Color Urine Dark Yellow; Glucose Urine UA Negative (Negative); Leukocyte Esterase Urine Large (3+) (Negative); Nitrite Urine Negative (Negative); PH 5.5 (5.0-9.0); Specific Gravity - Urine 1.025 (1.005-1.025); UMIC TRIGGER UACC YES; Urine Blood Trace (Negative); Urine Ketones Trace mg/dL (Negative); Urine Protein Trace mg/dL (Neg-Trace)
[2023-07-12 23:43] LABS: Bacteria Urine None Seen (None Seen); RBC Urine 0-2 /HPF (0-2); UACC Culture Trigger YES; WBC Urine >50 /HPF (0-5)
== END 2023-07-13 00:05 | disposition home or self-care (01) ==
PROVIDERS: Nurse Practitioner Family; Emergency Provider Emergency Medicine; PCP Internal Medicine
DX: N39.0 Urinary tract infection, site not specified (principal); R30.0 Dysuria; R35.0 Frequency of micturition; Z79.899 Other long term (current) drug therapy
CPT/HCPCS: 81001; 87086; 99283

== ENCOUNTER 2023-07-24 01:16 | Emergency (ER) | payer OTHER, SELFPAY ==
[2023-07-24 01:25] VITALS: BP 119/93; PULSE 90; RESP 18; TEMP 37; O2SAT 98; BMI 50.3
[2023-07-24 01:48] LABS: MANUAL DIFF FLAG NO
[2023-07-24 01:53] LABS: Basophils Absolute Auto 0.1 X10*3/uL (0.0-0.2); Basophils Percent Auto 0.6 % (0-2); Eosinophils Absolute Auto 0.1 X10*3/uL (0.0-0.4); Eosinophils Percent Auto 0.9 % (0-4); Hematocrit 42.4 % (37.0-47.0); Hemoglobin 13.9 g/dl (12.0-16.0); Imm Gran Abs Auto 0.04 X10*3/uL (0.00-0.03); Imm Gran Pct Auto 0.4 % (0.0-0.4); Lymphocytes Absolute Auto 2.7 X10*3/uL (1.2-4.9); Lymphocytes Percent Auto 29.1 % (20-40); Mean Corpuscular HGB Conc 32.8 g/dl (31.0-35.0); Mean Corpuscular Hemoglobin 29.8 pg (27.0-33.0); Mean Corpuscular Volume 90.8 fL (80.0-98.0); Mean Platelet Volume 10.4 fL (9.4-12.3); Monocytes Absolute Auto 0.8 X10*3/uL (0.1-1.2); Monocytes Percent Auto 8.4 % (2-11); Neutrophils Absolute Auto 5.6 x10*3/uL (2.0-8.3); Neutrophils Percent Auto 60.6 % (45-73); Platelet Count 240 X10*3/uL (160-400); Red Blood Count 4.67 X10*6/uL (4.20-5.50); White Blood Count 9.2 X10*3/uL (4.8-10.8)
[2023-07-24 01:54] LABS: Appearance Urine Clear; Color Urine Orange; Glucose Urine UA 500 mg/dL (Negative); Leukocyte Esterase Urine Moderate (2+) (Negative); Nitrite Urine Positive (Negative); Specific Gravity - Urine 1.025 (1.005-1.025); UMIC TRIGGER UACC YES; Urine Blood Negative (Negative); Urine Ketones 15 mg/dL (Negative); Urine Protein 100 (2+) mg/dL (Neg-Trace)
[2023-07-24 02:03] LABS: Alanine Aminotransferase 15 U/L (0-31); Alkaline Phosphatase 96 U/L (39-117); Anion Gap 15 (12-20); Aspartate Amino Transferase 10 U/L (5-31); Bacteria Urine 1+ (None Seen); Bilirubin Total 0.3 mg/dL (0.0-1.0); Blood Urea Nitrogen 15 mg/dL (9-16); Calcium 9.3 mg/dL (8.4-10.2); Carbon Dioxide 24 mmol/L (22-29); Chloride 106 mmol/L (96-108); Creatinine Clr Calc Pharmacy 70.6; Estimated Glomerular Filt Rate 49; Glucose Random 94 mg/dL (60-115); Hyaline Casts Urine 0-2 /LPF (0-2); Potassium 4.2 mmol/L (3.3-5.1); RBC Urine 0-2 /HPF (0-2); Sodium 141 mmol/L (135-145); Total Protein 7.1 g/dL (6.5-8.0); UACC Culture Trigger YES
--- NOTE | 2023-07-24 03:15 | ED.GENADULT ---
HPI - General Adult General Chief complaint: General Medical Stated complaint: UTI Time Seen by Provider: 07/24/23 02:57 Source: patient Mode of arrival: ambulatory Limitations: no limitations History of Present Illness HPI narrative: Patient comes to the emergency room complaining of urinary symptoms. On July 12, patient states that she was treated for UTI with Macrobid. Finished a course of antibiotics. The day after she completed the course, patient started having frequency, burning sensation and suprapubic discomfort. Patient denies flank pain. Denies fever or chills. Related Data Home Medications Medication Instructions Recorded Confirmed albuterol sulfate 90 mcg/actuation 2 puff inhalation Q6H PRN wheezing 06/01/22 07/03/22 aerosol inhaler bupropion HCl (smoking deter) 150 1 tab PO BID 06/01/22 07/03/22 mg tablet,12 hr sustained-release(smoking deterrent) cyanocobalamin (vitamin B-12) 1 tab PO DAILY 06/01/22 07/03/22 1,000 mcg tablet levothyroxine 75 mcg tablet 1 tab PO DAILY@0600 06/01/22 07/03/22 lorazepam 0.5 mg tablet 2 tab PO BEDTIME 06/01/22 07/03/22 mometasone-formoterol HFA 200 2 puff inhalation BID 06/01/22 07/03/22 mcg-5 mcg/actuation aerosol inhaler (Dulera) montelukast 10 mg tablet 1 tab PO BEDTIME 06/01/22 07/03/22 omeprazole 20 mg capsule,delayed 20 mg PO BID@0630,1630 06/01/22 07/03/22 release trihexyphenidyl 2 mg tablet 0.5 tab PO BID 06/01/22 07/03/22 verapamil 240 mg tablet,extended 1 tab PO BID 06/01/22 07/03/22 release ziprasidone HCl 80 mg capsule 1 cap PO BID 06/01/22 07/03/22 zolpidem 10 mg tablet 1 tab PO BEDTIME PRN insomnia 06/01/22 07/03/22 cetirizine 10 mg tablet (Zyrtec) 10 mg PO BEDTIME 07/03/22 07/03/22 diphenhydramine HCl 25 mg capsule 25 mg PO BEDTIME 07/03/22 07/03/22 (Benadryl) lorazepam 0.5 mg tablet 1 tab PO DAILY PRN Anxiety 07/03/22 07/03/22 melatonin 5 mg tablet 5 mg PO BEDTIME 07/03/22 07/03/22 Previous Rx's Medication Instructions Recorded albuterol sulfate 1.25 mg/3 mL 1.25 mg (3 mL) inhalation Q4-6H 06/06/22 solution for nebulization PRN shortness of breath or wheezing #75 mL prednisone 20 mg tablet 40 mg (2 x 20 mg) PO DAILY #10 tabs 07/07/22 ondansetron 4 mg disintegrating 4 mg PO Q6H #14 tabs 12/09/22 tablet meclizine 25 mg tablet 25 mg PO TID #15 tabs 05/15/23 nitrofurantoin 100 mg PO Q12H 5 days #10 caps 07/12/23 monohydrate/macrocrystals 100 mg capsule (Macrobid) phenazopyridine 200 mg tablet 200 mg PO TID PRN pain 6 doses #10 07/12/23 (Pyridium) tabs cephalexin 500 mg capsule 500 mg PO BID #14 caps 07/24/23 phenazopyridine 100 mg tablet 100 mg PO TID #6 tabs 07/24/23 Allergies Allergy/AdvReac Type Severity Reaction Status Date / Time shellfish derived Allergy Severe ANAPHYLAXIS Verified 07/24/23 01:30 tree nut [Tree Nut] Allergy Severe ANAPHYLAXIS Verified 07/24/23 01:30 Sulfa (Sulfonamide Allergy Unknown UNKNOWN Verified 07/24/23 01:30 Antibiotics) cefuroxime [From Ceftin] Allergy Unknown Verified 07/24/23 01:30 clarithromycin Allergy Diarrhea Verified 07/24/23 01:30 clindamycin Allergy Rash Verified 07/24/23 01:30 lamotrigine [From Lamictal] Allergy Unknown Verified 07/24/23 01:30 levofloxacin Allergy Confusion Verified 07/24/23 01:30 sumatriptan [From Imitrex] Allergy Unknown Verified 07/24/23 01:30 Review of Systems Review of Systems: Constitutional : No Weight loss, No Fever, No Chills, No Night Sweats, No Fatigue, No Malaise ENT/Mouth : No Hearing loss, No Ear Pain, No Nasal Congestion, No Sinus Pain, No Hoarseness, No sore throat, No Rhinorrhea, No Swallowing Difficulty Eyes: No Eye Pain, No Swelling, No Redness, No Foreign Body, No Discharge, No Vision Changes Cardiovascular : No Chest Pain, No SOB, No Dyspnea on Exertion, No Orthopnea, No Edema, No Palpitations Respiratory : No Cough, No Sputum, No Wheezing, No Smoke Exposure, No Dyspnea Gastrointestinal : No Nausea, No Vomiting, No Diarrhea, No Constipation, No abdominal Pain, No Hematochezia, No Melena Genitourinary : no irregular bleeding, complaining of dysuria, no hematuria, no flank pain or complaining of frequency Musculoskeletal : No joint pain, No Myalgias, No Joint Swelling Skin : No Skin Lesions, No rash Neuro : No Weakness, No Numbness, No Paresthesias, No Loss of Consciousness, No Dizziness, No Headache Psych : No Anxiety/Panic, No Depression, No SI/HI/AH/VH, No Social Issues, Heme/Lymph: No Bruising, No Bleeding,No Lymphadenopathy Endocrine : No Polyuria, No Polydipsia, No Temperature Intolerance PMFSH Past Medical History Medical History Acid reflux Migraine headache Hypothyroidism History of asthma Asthma exacerbation Surgical History History of eye surgery History of surgery on wrist History of appendectomy History of cholecystectomy Family History Family History Other No family history of coronary artery disease Social History Social History Household Members: Family Household Members Other:: 4 Housing: Apartment Do you presently have visiting nurse or other home services: No Comment: pt rings appropriately Patient Tobacco Use Status: Never used Tobacco e-Cigarette/Vaping Use: Never Used Advance Directives: Yes Advance Directives on File: Yes Advance Directives Date on File: 07/08/22 service: No Current occupational status: disabled Physical Exam ED Vital Signs: Vital Signs - 24 hr 07/24/23 01:25 Temperature 98.6 F Pulse Rate 90 Respiratory Rate 18 Blood Pressure 119/93 H Pulse Oximetry 98 Oxygen Delivery Method Room Air BMI result Body Mass Index 50.3 Const Other: Appearance: Alert. Oriented X3. No acute distress. Well-appearing Eyes: Pupils equal, round and reactive to light. ENT: Pharynx normal. Neck: Normal inspection. Neck supple. No lymph nodes noted. No crepitus CVS: Normal heart rate and rhythm. Pulses normal. Normal S1 and S2 Respiratory: No respiratory distress. Breath sounds normal. No Wheezing. No rales Abdomen: Soft and nontender. No rigidity. No distention. Skin: Skin warm and dry. Normal skin color. Normal skin turgor. Extremities: No lower extremity edema. No Lacerations. No Rash Neuro: Oriented X 3. No motor deficit. No sensory deficit. Moving all extremities. No slurred speech. CN 2 through 12 grossly intact Psych: calm, cooperative, normal affect Medical Decision Making Medical Decision Making MDM Narrative: My interpretation of labs: Hematology and chemistry at baseline. LFTs normal. Urinalysis positive for UTI. -I discussed the antibiotic treatment with the patient, patient has multiple allergies but she does not know the side effects that she has. None of them cause anaphylaxis. -pyelonephritis not suspected, sepsis not suspected Differential Diagnosis Differential Diagnoses: The differential diagnosis associated with the presentation includes (UTI, pyelonephritis, ureterolithiasis) Lab Data 07/24/23 01:43 07/24/23 01:43 Labs: Lab Results 07/24/23 Range/Units 01:43 WBC 9.2 (4.8-10.8) X10*3/uL RBC 4.67 (4.20-5.50) X10*6/uL Hgb 13.9 (12.0-16.0) g/dl Hct 42.4 (37.0-47.0) % MCV 90.8 (80.0-98.0) fL MCH 29.8 (27.0-33.0) pg MCHC 32.8 (31.0-35.0) g/dl RDW 13.0 (11.0-16.0) % Plt Count 240 (160-400) X10*3/uL MPV 10.4 (9.4-12.3) fL Immature Gran % (Auto) 0.4 (0.0-0.4) % Neut % (Auto) 60.6 (45-73) % Lymph % (Auto) 29.1 (20-40) % [place] % (Auto) 8.4 (2-11) % Eos % (Auto) 0.9 (0-4) % Baso % (Auto) 0.6 (0-2) % Lymph # (Auto) 2.7 (1.2-4.9) X10*3/uL [place] # (Auto) 0.8 (0.1-1.2) X10*3/uL Eos # (Auto) 0.1 (0.0-0.4) X10*3/uL Baso # (Auto) 0.1 (0.0-0.2) X10*3/uL Abs Immat Gran (auto) 0.04 H (0.00-0.03) X10*3/uL Absolute Neuts (auto) 5.6 (2.0-8.3) x10*3/uL Absolute Nucleated RBC 0.000 (0.0-0.012) X10*3/uL Nucleated RBC % (auto) 0.0 (0.0-0.2) /100WBC Sodium 141 (135-145) mmol/L Potassium 4.2 (3.3-5.1) mmol/L Chloride 106 (96-108) mmol/L Carbon Dioxide 24 (22-29) mmol/L Anion Gap 15 (12-20) BUN 15 (9-16) mg/dL Creatinine 1.15 (0.5-1.4) mg/dL Estim Creat Clear Calc 70.6 Estimated GFR 49 Random Glucose 94 (60-115) mg/dL Calcium 9.3 (8.4-10.2) mg/dL Total Bilirubin 0.3 (0.0-1.0) mg/dL AST 10 (5-31) U/L ALT 15 (0-31) U/L Alkaline Phosphatase 96 (39-117) U/L Total Protein 7.1 (6.5-8.0) g/dL Albumin 4.0 (3.5-5.0) g/dL Urine Color [place] Urine Appearance Clear Urine pH 5.0 (5.0-9.0) Ur Specific [place] 1.025 (1.005-1.025) Urine Protein 100 (2+) H (Neg-Trace) mg/dL Urine Glucose (UA) 500 H (Negative) mg/dL Urine Ketones 15 (Negative) mg/dL Urine Blood Negative (Negative) Urine Nitrite Positive H (Negative) Ur Leukocyte Esterase Moderate (2+) H (Negative) Urine RBC 0-2 (0-2) /HPF Urine WBC 6-10 (0-5) /HPF Ur Squamous Epith Cells 3-5 (0-2) /HPF Urine Bacteria 1+ (None Seen) Hyaline Casts 0-2 (0-2) /LPF Discharge Plan Discharge Clinical Impression: UTI (urinary tract infection) Patient Disposition: Home, Self-Care Instructions: Urinary Tract Infection in Women (ED) Additional Instructions: Please follow-up with your primary care physician tomorrow. If you have any worsening or new symptoms, please return to the emergency room or call 911 Prescriptions: New cephalexin 500 mg capsule 500 mg PO BID Qty: 14 0RF phenazopyridine 100 mg tablet 100 mg PO TID Qty: 6 0RF No Action ziprasidone HCl 80 mg capsule 1 cap PO BID cyanocobalamin (vitamin B-12) 1,000 mcg tablet 1 tab PO DAILY levothyroxine 75 mcg tablet 1 tab PO DAILY@0600 lorazepam 0.5 mg tablet 2 tab PO BEDTIME omeprazole 20 mg capsule,delayed release(DR/EC) 20 mg PO BID@0630,1630 verapamil 240 mg tablet extended release 1 tab PO BID montelukast 10 mg tablet 1 tab PO BEDTIME zolpidem 10 mg tablet 1 tab PO BEDTIME PRN (Reason: insomnia) albuterol sulfate 90 mcg/actuation HFA aerosol inhaler 2 puff INHALATION Q6H PRN (Reason: wheezing) trihexyphenidyl 2 mg tablet 0.5 tab PO BID Dulera 200-5 mcg/actuation HFA aerosol inhaler 2 puff INHALATION BID bupropion HCl (smoking deter) 150 mg tablet extended release 12 hr 1 tab PO BID albuterol sulfate 1.25 mg/3 mL solution for nebulization 1.25 mg inhalation Q4-6H PRN (Reason: shortness of breath or wheezing) Qty: 75 0RF cetirizine [Zyrtec] 10 mg Tablet 10 mg PO BEDTIME lorazepam 0.5 mg tablet 1 tab PO DAILY PRN (Reason: Anxiety) diphenhydramine HCl [Benadryl] 25 mg Capsule 25 mg PO BEDTIME melatonin 5 mg Tablet 5 mg PO BEDTIME prednisone 20 mg tablet 40 mg PO DAILY Qty: 10 0RF meclizine 25 mg tablet 25 mg PO TID Qty: 15 1RF nitrofurantoin monohyd/m-cryst [Macrobid] 100 mg capsule 100 mg PO Q12H 5 Days Qty: 10 0RF Rx Instructions: must administer with a meal/food phenazopyridine [Pyridium] 200 mg tablet 200 mg PO TID PRN (Reason: pain) Qty: 10 0RF ondansetron 4 mg tablet,disintegrating 4 mg PO Q6H Qty: 14 0RF
[2023-07-24] MEDS: cephALEXin 500 MG CAPSULE PO (03:42)
[2023-07-24 04:02] VITALS: BP 112/71; PULSE 70; RESP 17; TEMP 37.1; O2SAT 94
== END 2023-07-24 04:04 | disposition home or self-care (01) ==
PROVIDERS: Emergency Provider Emergency Medicine; PCP Internal Medicine
DX: N39.0 Urinary tract infection, site not specified (principal); R35.0 Frequency of micturition
CPT/HCPCS: 36415; 80053; 81001; 85025; 87086; 99283; 99284